=== PATIENT | female | born 1990 | race Caucasian/White ===

== ENCOUNTER 2020-08-31 14:40 | Outpatient (REF) | payer OTHER, SELFPAY ==
[2020-08-31 16:51] LABS: Hematocrit 36.4 % (37-47); Mean Corpuscular HGB Conc 30.2 g/dl (31.0-35.0); Mean Corpuscular Hemoglobin 24.1 pg (27.0-33.0); Mean Corpuscular Volume 79.6 fL (80-98); Mean Platelet Volume 11.5 fL (9.4-12.3); Platelet Count 245 X10*3/uL (160-400); Red Blood Count 4.57 X10*6/uL (4.20-5.50); Red Cell Distribution Width 17.7 % (11.0-16.0); White Blood Count 7.8 X10*3/uL (4.8-10.8)
[2020-08-31 16:55] LABS: Prothrombin Time 11.8 SEC (10.8-13.0)
[2020-08-31 17:11] LABS: Anion Gap 12 (12-20); Blood Urea Nitrogen 12 mg/dL (9-16); Calcium 8.8 mg/dL (8.4-10.2); Carbon Dioxide 24 mmol/L (22-29); Chloride 107 mmol/L (96-108); Cholesterol 195 mg/dL; Estimated Glomerular Filt Rate > 60; Glucose Fasting 83 mg/dL (60-99); HDL Cholesterol 58 mg/dL; LDL Cholesterol Calculated 119 mg/dl; Potassium 4.5 mmol/l (3.3-5.1); Sodium 138 mmol/L (135-145); Triglycerides 91 mg/dL
[2020-08-31 17:34] LABS: TSH reflex Free T4 1.41 mIU/mL (0.32-4.0); Vitamin D 25-OH Total 12.6 ng/mL (>30)
== END 2020-08-31 14:41 | disposition home or self-care (01) ==
LOC: HO.HMGCLDS 14:40
PROVIDERS: PCP Nurse Practitioner Family; Visit Provider Nurse Practitioner Family
DX: D64.9 Anemia, unspecified (principal); Z00.00 Encounter for general adult medical examination without abnormal findings; R58 Hemorrhage, not elsewhere classified
CPT/HCPCS: 36415; 80048; 80061; 82306; 84443; 85027; 85610

== ENCOUNTER 2020-09-01 14:47 | Outpatient (REF) | payer OTHER, SELFPAY ==
--- NOTE | 2020-09-01 14:52 | US_ITS ---
EXAMINATION: US THYROID CLINICAL INFORMATION: Disorder of thyroid, unspecified. COMPARISON: None TECHNIQUE: Linear transducer goetz-scale and color Doppler examination with attention to the region of the thyroid. FINDINGS: SIZE: Measurements of the thyroid lobes and nodules are given in sagittal, anteroposterior and transverse dimensions respectively. Right Thyroid Lobe: 5.1 x 2.1 x 1.5 cm, volume 8.4 mL. Parenchyma: The gland echotexture is homogeneous. Thyroid vascularity is normal. Left Thyroid Lobe: 5.1 x 1.4 x 1.7 cm, volume 6.2 mL. Parenchyma: The gland echotexture is homogeneous. Thyroid vascularity is normal. Isthmus: 0.2 cm in maximum AP dimension. RIGHT THYROID LOBE: No nodules. ISTHMUS: No nodules. LEFT THYROID LOBE: No nodules. NODES: No lymphadenopathy is seen in the tissue surrounding the thyroid gland. US/US thyroid IMPRESSION: Normal thyroid ultrasound.
== END 2020-09-01 14:48 | disposition home or self-care (01) ==
LOC: HO.HMGCX 14:47
PROVIDERS: PCP Nurse Practitioner Family; Visit Provider Nurse Practitioner Family
DX: E07.9 Disorder of thyroid, unspecified (principal)
CPT/HCPCS: 76536

== ENCOUNTER 2020-09-15 17:03 | Outpatient (REF) | payer OTHER, SELFPAY ==
--- NOTE | 2020-09-15 17:15 | US_ITS ---
EXAMINATION: DOPPLER VENOUS ULTRASOUND EXTREMITY, LEFT CLINICAL INFORMATION: Left lower extremity edema. COMPARISON: None. TECHNIQUE: Araiza-scale, Doppler and spectral analysis of the lower extremity was performed. FINDINGS: There is no evidence for a deep venous thrombosis within the visualized lower extremity veins. There is normal flow, compression and augmentation. ADDITIONAL FINDINGS: No Montes's cyst is identified. US/US venous duplex LE IMPRESSION: Unremarkable examination. Specifically, no evidence for DVT.
== END 2020-09-15 17:04 | disposition home or self-care (01) ==
LOC: HO.US 17:03
PROVIDERS: Visit Provider Hospitalist
DX: R60.0 Localized edema (principal)
CPT/HCPCS: 93971

== ENCOUNTER 2020-09-15 17:11 | Outpatient (REF) | payer OTHER, SELFPAY | END 2020-09-15 17:12 | disposition home or self-care (01) | LOC: HO.HMGCX 17:11 | PROVIDERS: PCP Nurse Practitioner Family; Visit Provider Nurse Practitioner Family | DX: Z13.89 Encounter for screening for other disorder (principal) ==

== ENCOUNTER 2020-10-04 10:52 | Outpatient (REF) | payer OTHER, SELFPAY ==
[2020-10-04 13:51] LABS: MANUAL DIFF FLAG NO
[2020-10-04 13:55] LABS: Basophils Absolute Auto 0.1 X10*3/uL (0.0-0.2); Basophils Percent Auto 0.8 % (0-2); Eosinophils Absolute Auto 0.1 X10*3/uL (0.0-0.4); Eosinophils Percent Auto 1.9 % (0-4); Hematocrit 35.8 % (37-47); Hemoglobin 10.6 g/dl (12.0-16.0); Imm Gran Abs Auto 0.02 X10*3/uL (0.00-0.03); Imm Gran Pct Auto 0.3 % (0.0-0.4); Lymphocytes Absolute Auto 2.2 X10*3/uL (1.2-4.9); Lymphocytes Percent Auto 34.8 % (20-40); Mean Corpuscular HGB Conc 29.6 g/dl (31.0-35.0); Mean Corpuscular Hemoglobin 23.7 pg (27.0-33.0); Mean Corpuscular Volume 79.9 fL (80-98); Mean Platelet Volume 11.5 fL (9.4-12.3); Monocytes Absolute Auto 0.5 X10*3/uL (0.1-1.2); Neutrophils Absolute Auto 3.5 X10*3/uL (2.0-8.3); Neutrophils Percent Auto 55.2 % (45-73); Platelet Count 250 X10*3/uL (160-400); Red Blood Count 4.48 X10*6/uL (4.20-5.50); Red Cell Distribution Width 17.3 % (11.0-16.0); White Blood Count 6.4 X10*3/uL (4.8-10.8)
[2020-10-04 14:18] LABS: Iron 50 mcg/dL (30-160); Percent Iron Saturation 11 % (15-50); Total Iron Binding Capacity 471 mcg/dL (228-428); Unsaturated Iron Binding 421 ug/dL
[2020-10-04 14:38] LABS: Ferritin 10 ng/mL (10-122)
[2020-10-06 20:08] LABS: TS Negative Control Passed; TS Panel A 0; TS Panel B 1; TS Positive Control Passed; TSpotTB Negative (SeeBelow)
== END 2020-10-04 10:53 | disposition home or self-care (01) ==
LOC: HO.HMGCLDS 10:52
PROVIDERS: PCP Nurse Practitioner Family; Visit Provider Nurse Practitioner Family
DX: D64.9 Anemia, unspecified (principal); Z11.1 Encounter for screening for respiratory tuberculosis
CPT/HCPCS: 36415; 82728; 83540; 85025; 86481

== ENCOUNTER 2021-12-25 08:58 | Outpatient (REF) | payer OTHER, SELFPAY ==
--- NOTE | ~2021-12-25 | MM_ITS ---
EXAMINATION: MM SCREENING DIGITAL BREAST TOMOSYNTHESIS, BILATERAL CLINICAL INFORMATION: Screening. Asymptomatic. Age 31. Imaging prior to anticipated bilateral breast surgery. Intentional weight loss over 100 pounds past 8 months. Family history breast cancer, maternal grandmother. The lifetime risk of breast cancer based on the Tyrer-Cuzick Model is 14%. COMPARISON: None (current study represents initial baseline exam). TECHNIQUE: Digital breast tomosynthesis is performed in both the craniocaudal and mediolateral oblique views along with computer-aided detection (CAD). Synthesized 2D images are generated from the tomosynthesis. FINDINGS: There are scattered areas of fibroglandular density (ACR BI-RADS breast composition Category b). There are no significant masses, abnormal calcifications, or other abnormalities. No architectural abnormality. The axilla and skin contours are unremarkable. MM/MM tomosynthesis screening BI IMPRESSION: No mammographic evidence of malignancy. ASSESSMENT: BI-RADS 1: Negative RECOMMENDATION: Routine annual mammography screening. This patient's information was entered into a reminder system with a target due date for their next mammogram.
== END 2021-12-25 08:59 | disposition home or self-care (01) ==
LOC: HO.MAMMO 08:58
PROVIDERS: PCP Nurse Practitioner Family; Visit Provider Nurse Practitioner Family
DX: Z12.31 Encounter for screening mammogram for malignant neoplasm of breast (principal)
CPT/HCPCS: 77063; 77067

== ENCOUNTER 2022-01-15 09:04 | Outpatient (REF) | payer OTHER, SELFPAY ==
[2022-01-15 11:33] LABS: MANUAL DIFF FLAG NO
[2022-01-15 11:37] LABS: Basophils Percent Auto 0.6 % (0-2); Eosinophils Absolute Auto 0.1 X10*3/uL (0.0-0.4); Eosinophils Percent Auto 1.5 % (0-4); Hematocrit 39.3 % (37.0-47.0); Hemoglobin 12.4 g/dl (12.0-16.0); Imm Gran Abs Auto 0.01 X10*3/uL (0.00-0.03); Imm Gran Pct Auto 0.2 % (0.0-0.4); Lymphocytes Absolute Auto 2.3 X10*3/uL (1.2-4.9); Lymphocytes Percent Auto 34.8 % (20-40); Mean Corpuscular HGB Conc 31.6 g/dl (31.0-35.0); Mean Corpuscular Hemoglobin 27.6 pg (27.0-33.0); Mean Corpuscular Volume 87.3 fL (80.0-98.0); Mean Platelet Volume 12.1 fL (9.4-12.3); Monocytes Absolute Auto 0.5 X10*3/uL (0.1-1.2); Neutrophils Absolute Auto 3.6 x10*3/uL (2.0-8.3); Neutrophils Percent Auto 54.9 % (45-73); Platelet Count 207 X10*3/uL (160-400); Red Cell Distribution Width 18.7 % (11.0-16.0); White Blood Count 6.5 X10*3/uL (4.8-10.8)
[2022-01-15 11:44] LABS: INTERNATIONAL NORM RATIO 1.1 (0.9-1.1); Prothrombin Time 12.1 SEC (9.9-13.0)
[2022-01-15 11:47] LABS: Partial Thromboplastin Time 31.8 SEC (24.1-38.0)
[2022-01-15 11:51] LABS: Appearance Urine CLEAR; Color Urine YELLOW; Glucose Urine UA NEG (NEG); Leukocyte Esterase Urine NEG (NEG); Nitrite Urine NEG (NEG); PH 5.5 (5.0-8.0); Specific Gravity - Urine >= 1.030 (1.005-1.025); Urine Blood NEG (NEG); Urine Ketones 15 MG/DL (NEG); Urine Protein NEG (NEG-TRACE)
[2022-01-15 12:09] LABS: TSH reflex Free T4 1.99 uIU/mL (0.32-4.0)
[2022-01-15 12:16] LABS: Alanine Aminotransferase 32 U/L (0-31); Albumin Level 4.2 g/dL (3.5-5.0); Alkaline Phosphatase 47 U/L (39-117); Anion Gap 13 (12-20); Aspartate Amino Transferase 22 U/L (5-31); Bilirubin Total 0.5 mg/dL (0.0-1.0); Blood Urea Nitrogen 14 mg/dL (9-16); Calcium 9.8 mg/dL (8.4-10.2); Carbon Dioxide 24 mmol/L (22-29); Chloride 108 mmol/L (96-108); Estimated Glomerular Filt Rate > 60; Glucose Fasting 80 mg/dL (60-99); Potassium 4.4 mmol/L (3.3-5.1); Sodium 141 mmol/L (135-145); Total Protein 6.5 g/dL (6.5-8.0)
== END 2022-01-15 09:05 | disposition home or self-care (01) ==
LOC: HO.HMGCLDS 09:04
PROVIDERS: PCP Nurse Practitioner Family; Visit Provider Nurse Practitioner Family
DX: Z01.818 Encounter for other preprocedural examination (principal)
CPT/HCPCS: 36415; 80053; 81003; 84443; 85025; 85610; 85730

== ENCOUNTER 2022-02-12 14:25 | Outpatient (REF) | payer OTHER, SELFPAY ==
[2022-02-12 16:50] LABS: MANUAL DIFF FLAG NO
[2022-02-12 16:55] LABS: Basophils Percent Auto 0.4 % (0-2); Eosinophils Absolute Auto 0.1 X10*3/uL (0.0-0.4); Hematocrit 39.1 % (37.0-47.0); Hemoglobin 12.6 g/dl (12.0-16.0); Imm Gran Abs Auto 0.02 X10*3/uL (0.00-0.03); Imm Gran Pct Auto 0.3 % (0.0-0.4); Lymphocytes Absolute Auto 2.5 X10*3/uL (1.2-4.9); Lymphocytes Percent Auto 35.8 % (20-40); Mean Corpuscular HGB Conc 32.2 g/dl (31.0-35.0); Mean Corpuscular Hemoglobin 28.4 pg (27.0-33.0); Mean Corpuscular Volume 88.3 fL (80.0-98.0); Mean Platelet Volume 11.8 fL (9.4-12.3); Monocytes Absolute Auto 0.5 X10*3/uL (0.1-1.2); Monocytes Percent Auto 7.4 % (2-11); Neutrophils Absolute Auto 3.8 x10*3/uL (2.0-8.3); Neutrophils Percent Auto 55.1 % (45-73); Platelet Count 242 X10*3/uL (160-400); Red Blood Count 4.43 X10*6/uL (4.20-5.50); Red Cell Distribution Width 17.5 % (11.0-16.0); White Blood Count 6.9 X10*3/uL (4.8-10.8)
[2022-02-12 16:56] LABS: Appearance Urine CLEAR; Color Urine YELLOW; Glucose Urine UA NEG (NEG); Leukocyte Esterase Urine NEG (NEG); Nitrite Urine NEG (NEG); Specific Gravity - Urine <= 1.005 (1.005-1.025); Urine Blood NEG (NEG); Urine Ketones 40 MG/DL (NEG); Urine Protein NEG (NEG-TRACE)
[2022-02-12 17:04] LABS: INTERNATIONAL NORM RATIO 1.1 (0.9-1.1); Prothrombin Time 12.2 SEC (9.9-13.0)
[2022-02-12 17:07] LABS: Partial Thromboplastin Time 34.2 SEC (24.1-38.0)
[2022-02-12 17:12] LABS: Alanine Aminotransferase 12 U/L (0-31); Albumin Level 4.3 g/dL (3.5-5.0); Alkaline Phosphatase 46 U/L (39-117); Anion Gap 16 (12-20); Aspartate Amino Transferase 17 U/L (5-31); Bilirubin Total 0.6 mg/dL (0.0-1.0); Blood Urea Nitrogen 11 mg/dL (9-16); Calcium 10.4 mg/dL (8.4-10.2); Carbon Dioxide 22 mmol/L (22-29); Chloride 103 mmol/L (96-108); Estimated Glomerular Filt Rate > 60; Glucose Random 70 mg/dL (60-115); Potassium 4.4 mmol/L (3.3-5.1); Sodium 137 mmol/L (135-145); Total Protein 6.8 g/dL (6.5-8.0)
[2022-02-12 17:17] LABS: Estimated Average Glucose 85 mg/dL; Hemoglobin A1c % 4.6 %
[2022-02-12 17:34] LABS: Free T4 (Free Thyroxine) 0.98 ng/dL (0.71-1.85); HCG Quantitative < 2 mIU/mL; TSH reflex Free T4 2.47 uIU/mL (0.32-4.0)
[2022-02-12 17:42] LABS: RBC Urine 0-2 /HPF (0); Squamous Epithelial Cell Urine TRACE /LPF; WBC Urine 0 /HPF (0-4)
[2022-02-13 05:41] LABS: Triiodothyronine T3 Free 2.3 pg/mL (2.3-4.2)
[2022-02-13 07:57] LABS: HIV AB/AG Nonreactive (Nonreactive); HIV Num 1 0.08 S/CO (0.00-0.99)
== END 2022-02-12 14:26 | disposition home or self-care (01) ==
LOC: HO.HMGCLDS 14:25
PROVIDERS: PCP Nurse Practitioner Family; Visit Provider Nurse Practitioner Family
DX: Z01.818 Encounter for other preprocedural examination (principal); Z11.4 Encounter for screening for human immunodeficiency virus [HIV]
CPT/HCPCS: 36415; 80053; 81001; 83036; 84439; 84443; 84481; 84702; 85025; 85610; 85730; 87389

== ENCOUNTER 2022-02-15 14:28 | Outpatient (REF) | payer OTHER, SELFPAY ==
--- NOTE | ~2022-02-15 | US_ITS ---
EXAMINATION: US ABDOMEN COMPLETE CLINICAL INFORMATION: Abdominal tenderness, unspecified site. COMPARISON: CT abdomen and pelvis 05/11/2015. TECHNIQUE: Real-time imaging of the abdominal viscera. FINDINGS: PANCREAS: Normal. ABDOMINAL AORTA: The proximal, mid, and distal segments are normal in caliber. INFERIOR VENA CAVA: Visualized portions are normal. LIVER: Normal. The liver is normal in size. The liver contour is normal. Parenchymal echogenicity is normal. No focal hepatic lesion. There is no intrahepatic biliary duct dilatation seen. GALLBLADDER: There is an echogenic bile. The gallbladder is physiologically distended without evidence of stones, polyps, wall thickening or pericholecystic fluid. COMMON BILE DUCT: Normal in caliber measuring 0.2 cm in diameter. RIGHT KIDNEY: Normal. No hydronephrosis. No renal calculi or focal parenchymal lesions. The kidney measures 8.4 cm in maximum dimension. LEFT KIDNEY: There are multiple echogenic foci with non-shadowing and non-twinkle artifact. No hydronephrosis. No renal calculi or focal parenchymal lesions. The kidney measures 9.8 cm in maximum dimension. SPLEEN: Normal. The spleen measures 7.3 cm in maximum dimension. FREE FLUID: None. US/US abdomen complete IMPRESSION: Multiple echogenic foci, -shadowing and non-twinkle artifact in left kidney. Echogenic bile but no wall thickening. The rest of the abdominal ultrasound is unremarkable.
== END 2022-02-15 14:29 | disposition home or self-care (01) ==
LOC: HO.US 14:28
PROVIDERS: PCP Nurse Practitioner Family; Visit Provider Nurse Practitioner Family
DX: R10.819 Abdominal tenderness, unspecified site (principal)
CPT/HCPCS: 76700

== ENCOUNTER 2022-02-20 11:00 | Outpatient (REF) | payer OTHER, SELFPAY | END 2022-02-20 11:01 | disposition home or self-care (01) | LOC: HO.MDS 11:00 | PROVIDERS: Visit Provider Internal Medicine Medical Oncology | DX: D50.9 Iron deficiency anemia, unspecified (principal) | CPT/HCPCS: 96365; J2916 ==

== ENCOUNTER 2022-02-25 12:59 | Outpatient (REF) | payer OTHER, SELFPAY | END 2022-02-25 13:00 | disposition home or self-care (01) | LOC: HO.MDS 12:59 | PROVIDERS: Visit Provider Internal Medicine Medical Oncology | DX: D50.9 Iron deficiency anemia, unspecified (principal); M79.7 Fibromyalgia | CPT/HCPCS: 96365; J2916 ==

== ENCOUNTER 2022-03-01 09:18 | Outpatient (REF) | payer OTHER, SELFPAY ==
[2022-03-01 10:18] LABS: MANUAL DIFF FLAG NO
[2022-03-01 10:22] LABS: Basophils Percent Auto 0.3 % (0-2); Hematocrit 35.2 % (37.0-47.0); Hemoglobin 11.6 g/dl (12.0-16.0); Lymphocytes Absolute Auto 1.2 X10*3/uL (1.2-4.9); Lymphocytes Percent Auto 40.9 % (20-40); Mean Corpuscular Hemoglobin 29.7 pg (27.0-33.0); Monocytes Absolute Auto 0.3 X10*3/uL (0.1-1.2); Monocytes Percent Auto 10.5 % (2-11); Neutrophils Absolute Auto 1.4 x10*3/uL (2.0-8.3); Neutrophils Percent Auto 47.3 % (45-73); Red Blood Count 3.91 X10*6/uL (4.20-5.50); Red Cell Distribution Width 17.3 % (11.0-16.0)
[2022-03-01 10:41] LABS: Mean Platelet Volume 11.7 fL (9.4-12.3); Platelet Count 104 X10*3/uL (160-400)
== END 2022-03-01 09:19 | disposition home or self-care (01) ==
LOC: HO.MDS 09:18
PROVIDERS: Visit Provider Internal Medicine Medical Oncology
DX: D50.9 Iron deficiency anemia, unspecified (principal)
CPT/HCPCS: 36415; 85025; 96365; J2916

== ENCOUNTER 2022-04-16 14:04 | Outpatient (RCR) | payer OTHER, SELFPAY | END 2022-06-10 14:08 | disposition home or self-care (01) | LOC: HO.WCC 14:04 | PROVIDERS: PCP Nurse Practitioner Family; Visit Provider Physician Assistant | DX: L98.492 Non-pressure chronic ulcer of skin of other sites with fat layer exposed (principal); S71.001D Unspecified open wound, right hip, subsequent encounter; S31.000D Unspecified open wound of lower back and pelvis without penetration into retroperitoneum, subsequent encounter; T81.31XD Disruption of external operation (surgical) wound, not elsewhere classified, subsequent encounter; M96.842 Postprocedural seroma of a musculoskeletal structure following a musculoskeletal system procedure | CPT/HCPCS: 11042; 97597; 99213; 99214 ==

== ENCOUNTER 2022-05-14 07:57 | Outpatient (REF) | payer OTHER, SELFPAY ==
--- NOTE | ~2022-05-14 | CT_ITS ---
EXAMINATION: CT ABDOMEN WITHOUT AND WITH CONTRAST CLINICAL INFORMATION: Abnormal ultrasound findings COMPARISON: Negative CT abdomen and pelvis 05/11/2015 TECHNIQUE: Contiguous axial thin section helical images of the abdomen were performed before and after the administration of oral contrast and 85 mL of Omnipaque 350 intravenous contrast. The data set was reformatted in the coronal and sagittal planes and reviewed on an independent workstation. This CT examination was performed using dose optimization techniques as appropriate, variously including the following: *Automated exposure control *Adjustment of mA and/or kV according to patient size (this includes techniques or standardized protocols for targeted exams where dose is matched to indication/reason for exam; i.e. extremities or head) *Use of iterative reconstruction technique DLP: 292 mGy-cm FINDINGS: LUNG BASES: The lung bases are clear. The heart size is normal. LIVER, GALLBLADDER, AND BILIARY TREE: The liver is normal size, shape and contour. No focal lesion or intrahepatic ductal dilatation seen. The gallbladder is unremarkable. PANCREAS: The pancreas is homogeneous in density and is normal size. The peripancreatic borders are preserved. SPLEEN: The spleen is unremarkable. ADRENAL GLANDS AND KIDNEYS: Both adrenal glands are symmetrically normal. Both kidneys are normal size, shape and contour. There are no radiopaque renal calculi or hydronephrosis seen. BOWEL LOOPS: There is scattered stool and gas seen throughout the colon without distention. The small bowel loops are normal caliber. Appendix is not visualized. ABDOMINAL WALL: There is diffuse abdominal wall cellulitis and focal fluid collection along the right posterior abdominal wall. LYMPH NODES: Normal. VASCULAR: Unremarkable. BONES: Unremarkable CT/CT abdomen wo/w con IMPRESSION: 1. Diffuse abdominal wall cellulitis and focal fluid collection along the right posterior abdominal wall just above the iliac crest 2. Otherwise no acute intra-abdominal process seen. There is mild constipation. Fleischner guidelines were followed.
[2022-05-14] MEDS: iohexoL 350 MG/ML 100 ML INFUS..BTL IV (09:22)
== END 2022-05-14 07:58 | disposition home or self-care (01) ==
LOC: HO.CT 07:57
PROVIDERS: PCP Nurse Practitioner Family; Visit Provider Nurse Practitioner Family
DX: R93.422 Abnormal radiologic findings on diagnostic imaging of left kidney (principal)
CPT/HCPCS: 74170; Q9967

== ENCOUNTER 2022-09-01 01:47 | Emergency (ER) | payer OTHER, SELFPAY ==
[2022-09-01 01:20] LABS: Appearance Urine Clear; Color Urine Yellow; Glucose Urine UA Negative (Negative); Leukocyte Esterase Urine Negative (Negative); Nitrite Urine Negative (Negative); Specific Gravity - Urine <= 1.005 (1.005-1.025); Urine Blood Negative (Negative); Urine Ketones Negative (Negative); Urine Protein Negative (Neg-Trace)
[2022-09-01 01:21] LABS: UPreg QC Valid YES; Urine Pregnancy NEGATIVE (NEGATIVE)
[2022-09-01 01:43] LABS: Amphetamine Screen Urine Not Detected (Not Detect); Barbiturates, Urine Not Detected (Not Detect); Benzodiazepines Screen Urine Not Detected (Not Detect); Cannabinoid Screen Urine Not Detected (Not Detect); Cocaine Screen Urine Not Detected (Not Detect); Fentanyl, urine Not Detected (Not Detect); Opiate Screen Urine Not Detected (Not Detect); Phencyclidine Screen Urine Not Detected (Not Detect)
--- NOTE | 2022-09-01 01:47 | ED_ITS ---
HPI - General Adult General Chief complaint: Nausea/Vomiting/Diarrhea Stated complaint: etoh Time Seen by Provider: 09/01/22 01:19 EST Source: patient and other Mode of arrival: EMS History of Present Illness HPI narrative: 32-year-old female who presents after having done on drinking with a friend of hers and states that she consumed far less than her typical amount and felt very lightheaded and became nauseous and vomited. Patient declined Zofran. Patient has recently recovered from RSV infection and had been undergoing water fasting for 2 days. Related Data Home Medications Medication Instructions Recorded Confirmed ascorbic acid (vitamin C) 500 mg 500 mg PO BID 02/12/22 04/22/22 chewable tablet (Vitamin C) ibuprofen 800 mg tablet 800 mg PO Q8H PRN pain 04/08/22 04/22/22 Previous Rx's Medication Instructions Recorded albuterol sulfate 90 mcg/actuation 2 puff inhalation Q6H PRN 10/15/21 aerosol inhaler bronchospasm 30 days #8.5 grams doxycycline hyclate 100 mg tablet 100 mg PO BID 10 days #20 tabs 04/08/22 tramadol 50 mg tablet 50 mg PO BID PRN pain 10 days #20 04/08/22 tabs fluconazole 150 mg tablet 150 mg PO Q3D 2 doses #2 tabs 04/22/22 (Diflucan) albuterol sulfate 90 mcg/actuation 2 puff inhalation QID PRN 08/01/22 aerosol inhaler (Ventolin HFA) shortness of breath or wheezing #8.5 grams prednisone 10 mg tablet 10 mg PO DAILY #16 tabs 08/06/22 Allergies Allergy/AdvReac Type Severity Reaction Status Date / Time latex Allergy rash Verified 09/01/22 01:57 EDT ondansetron [From Zofran] Allergy Nausea Verified 09/01/22 01:57 EDT Review of Systems Review of Systems: Pertinent positives and negatives as stated in HPI 10 point review of systems is otherwise negative. [facility] Past Medical History Source: nursing notes reviewed Medical History (Reviewed 09/01/22 @ 01:51 EST by Sachi Stoddard MD) Anemia Asthma DVT (deep vein thrombosis) in Family hx-breast malignancy Fibromyalgia Patella-femoral syndrome Family History Family History (Reviewed 09/01/22 @ 01:51 EST by Sachi Stoddard MD) Father No problems noted. Paternal Grandfather Diabetes Paternal Grandmother Diabetes Mother Asthma Paternal Aunt Breast cancer Social History Social History (Reviewed 09/01/22 @ 01:51 EST by Sachi Stoddard MD) Household Members: Children Housing: Condominium Are you a primary post anesthesia care unit nurse to a significant other at home: No Do you presently have visiting nurse or other home services: No Alcohol intake: current Patient Tobacco Use Status: Former Tobacco user Quit Date: 01/12/2022 Years Smoked: since 15 years old e-Cigarette/Vaping Use: Never Used Second Hand Smoke Exposure: No service: No Current occupational status: employed Current occupation: [employer] Current occupational exposures/hazards: No Cognitive needs: No Hearing needs: No Vision needs: No Physical Exam ED Vital Signs: Vital Signs - 24 hr 09/01/22 01:57 EDT Temperature 97.6 F Pulse Rate 59 Respiratory Rate 18 Blood Pressure 91/55 L Pulse Oximetry 97 Oxygen Delivery Method Room Air BMI result Body Mass Index 28.3 VITAL SIGNS: Reviewed. GENERAL: Well developed, well nourished, in no acute distress. HEAD: Normocephalic/atraumatic EYES: PERRLA, EOMI EARS: Ext canals without abnormality OROPHARYNX: no oral lesions noted, posterior pharynx clear LUNGS: Normal breath sounds. No adventitious sounds or accessory muscle use. SpO2<97> CARDIOVASCULAR: Regular rate and rhythm without noted murmurs ABDOMEN: Soft, non-tender, non-distended with bowel sounds. MUSCULOSKELETAL: No tenderness, deformities, or effusions noted on gross inspection. EXTREMITIES: No cyanosis, clubbing or edema. SKIN: Inspection of the skin reveals no rashes NEUROLOGIC: Alert and oriented x 4. Strength and sensation to light touch were grossly intact x 4. Course Course Course Narrative: 32-year-old female with history and clinical presentation consistent with alcohol intoxication, patient did request a urinary drug screen as she thought 1 of her drinks may have been ?spiked?. On review of urine drug screen there are no positive results. Patient has had an IV with IV fluids running and states she is feeling much better. Medical Decision Making Lab Data Labs: Lab Results 09/01/22 09/01/22 09/01/22 Range/Units 01:13 EST 01:13 EST 01:13 EST Urine Color Yellow Urine Appearance Clear Urine pH 6.0 (5.0-9.0) Ur Specific [place] <= 1.005 (1.005-1.025) Urine Protein Negative (Neg-Trace) mg/dL Urine Glucose (UA) Negative (Negative) mg/dL Urine Ketones Negative (Negative) mg/dL Urine Blood Negative (Negative) Urine Nitrite Negative (Negative) Ur Leukocyte Esterase Negative (Negative) Urine Test NEGATIVE (NEGATIVE) Urine Opiates Screen Not Detected (Not Detect) Urine Fentanyl Screen Not Detected (Not Detect) Ur Barbiturates Screen Not Detected (Not Detect) Ur Phencyclidine Scrn Not Detected (Not Detect) Ur Amphetamines Screen Not Detected (Not Detect) U Benzodiazepines Scrn Not Detected (Not Detect) Urine Cocaine Screen Not Detected (Not Detect) U Marijuana (THC) Screen Not Detected (Not Detect) Discharge Plan Discharge Clinical Impression: Alcohol intoxication Patient Disposition: Still a Patient Prescriptions: No Action albuterol sulfate 90 mcg/actuation HFA aerosol inhaler 2 puff inhalation Q6H PRN (Reason: bronchospasm) 30 Days Qty: 8.5 2RF albuterol sulfate [Ventolin HFA] 90 mcg/actuation HFA aerosol inhaler 2 puff inhalation QID PRN (Reason: shortness of breath or wheezing) Qty: 8.5 0RF ascorbic acid (vitamin C) [Vitamin C] 500 mg Tablet,Chewable 500 mg PO BID ibuprofen 800 mg tablet 800 mg PO Q8H PRN (Reason: pain) doxycycline hyclate 100 mg tablet 100 mg PO BID 10 Days Qty: 20 0RF tramadol 50 mg tablet 50 mg PO BID PRN (Reason: pain) 10 Days Qty: 20 0RF fluconazole [Diflucan] 150 mg tablet 150 mg PO Q3D Qty: 2 0RF prednisone 10 mg tablet 10 mg PO DAILY Qty: 16 0RF Rx Instructions: Take 4 tabs p.o. daily x 3 days, take 2 tab x 2 days
[2022-09-01 01:57] VITALS: BP 121/62; BP 91/55; PULSE 55; PULSE 59; RESP 18; TEMP 36.4; O2SAT 97; O2SAT 98; BMI 28.3
[2022-09-01 02:00] LABS: Glucose, Whole Blood 98 mg/dL (60-115)
--- OUTSIDE RECORDS SUMMARY | 2022-09-01 02:33 | XMS_ITS | Continuity of Care Document ---
:1990 Author Organization [facility] Address [address] [place] [address]- Care Team Providers Name Role Phone Ember CRUZ, Jesse Bryant Primary Care Physician [place] [facility] [place](s): 11/22/21 - 03/22/22 [facility] [address] [place], [place] [id number]- Attending Physician: Yo Rhodes MD Admitting Physician: Yo Rhodes MD Referring Physician: Jesse Pa NP Allergies, Adverse Reactions, Alerts Substance Reaction Severity Status Latex hives Active rash Mold1 Active Other Food Allergy garlic-tongue tingling Active Pineapple tongue tingling Active 1hives hypertension Immunizations Given and Recorded Vaccine Date Status Refusal Reason Varicella Virus Vaccine 12/18/16 Given Varicella Virus Vaccine 02/06/15 Recorded Measles/Mumps/Rubella Virus Vaccine 12/18/16 Given Measles/Mumps/Rubella Virus Vaccine 05/24/15 Recorded Measles/Mumps/Rubella Virus Vaccine 02/06/15 Recorded influenza virus vaccine, inactivated1 08/02/14 Given influenza virus vaccine, inactivated 12/23/13 Recorded influenza virus vaccine, inactivated2 07/04/12 Given tetanus/diphtheria/pertussis, acel(Tdap)3 07/13/14 Given tetanus/diphtheria/pertussis, acel(Tdap) 04/28/13 Recorde d tetanus/diphtheria/pertussis, acel(Tdap)4 07/03/12 Given Human Papillomavirus Vaccine 11/24/12 Given 1Result Comment: [08/02/2014] VIS given to pt-pt denies past reaction, egg allergy, hx GBS.2Admin Note: vis#05/21/20113Admin Note: tdap VIS given, administered in L [id number] Note: VIS sheet 11/19/2011 Medications albuterol 0.083% inhalation solution 3 mL = 2.5 mg, Inhalation, Every 6 hours, PRN for wheezing, # 25 each, 3 Refills, Maintenance, 11/15/16 17:48:08, Solution Start Date: 11/15/16 Status: Orderedalbuterol CFC free 90 mcg/inh inhalation aerosol 180 mcg, 2, puffs, Inhalation, 4 times a day, PRN, # 1 each, Refills 3, Tot. Refills 3, Maintenance,11/15/16 17:47:40, Inhaler, Route to Pharmacy Electronically, [id number], [facility]/pharmacy #[id number] Start Date: 11/15/16 Status: Ordereddiclofenac 1% topical gel 1 application, Topically, 4 times a day, # 100 Gm, 0 Refills, Maintenance, 10/08/21 12:58:00 EST, Gel, [facility]/pharmacy #[id number], Partial fill upon patient request if the prescription is for a schedule II opioid drug., 163.7, cm, 10/08/21 12:28:00 EST, Height Start Date: 10/08/21 Status: Orderedfluconazole 150 mg oral tablet 1 tablet = 150 mg, By Mouth, Once, Acute, # 1 tablet, 0 Refills, Soft Stop, 02/01/20 13:20:00 EDT, [facility]/pharmacy #1972, 163.7, cm, 07/08/19 17:07:00 EDT, Height, 113.6, kg, 06/18/18 11:50:00 EDT, Dry Weight Start Date: 02/01/20 Status: OrderedParagard IUD See Instructions, # 1 units, Maintenance, inserted in office 01/26/15, 01/26/15 13:04:28, Compound Start Date: 01/26/15 Status: OrderedPlan B One-Step 1.5 mg oral tablet 1.5 mg, 1, tablet, By Mouth, Once, # 1 tablet, Refills 0, Tot. Refills 0, Soft Stop, 07/19/20 14:02:00 EDT, Route to Pharmacy Electronically, [facility]/pharmacy #1972, 163.7, cm, 02/29/20 14:54:00 EDT, Height Start Date: 07/19/20 Status: Ordered Problem List Condition Effective Dates Status Health Status Informant Anemia(Confirmed) Active Anxiety(Confirmed) Active Asthma(Confirmed) Active Chronic female pelvic pain(Confirmed) Active Straining with stools(Confirmed) Active Abnormal bleeding in menstrual Active cycle(Confirmed) PFD (pelvic floor Active dysfunction)(Confirmed) Encounter for diagnostic colonoscopy Active due to change in bowel habits(Confirmed) Chronic generalized abdominal Active pain(Confirmed) IUD (intrauterine device) in Active place(Confirmed) Migraines(Confirmed) Active Psoriasis(Confirmed) Active Vaginitis(Confirmed) Active History of DVT right leg in Active 2013(Confirmed) Social History Social History Type Response Smoking Status Current some day smoker; Typ e: Cigarettes entered on: 02/16/18 Sex
--- OUTSIDE RECORDS SUMMARY | 2022-09-01 02:33 | XMS_ITS | Continuity of Care Document ---
:1990 [facility] Address [address] [place] [address] Care Team Providers Name Role Phone Frantz JOHNSON, Marin Owen Primary Care Physician [place] [facility] [place] 06/20/21 - 07/20/21 [facility] [employer] [address] [place] [id number] Allergies, Adverse Reactions, Alerts Substance Reaction Severity [...] Note: tdap VIS given, administered in L [id number] Note: VIS sheet 11/19/2011 Medications albuterol 0.083% [...] Maintenance,11/15/16 17:47:40, Inhaler, Route to Pharmacy Electronically, [id number], [facility]/pharmacy #[id number] Start Date: 11/15/16 Status: Orderedfluconazole 150 mg oral tablet 1 tablet = 150 mg, By Mouth, Once, Acute, # 1 tablet, 0 Refills, Soft Stop, 02/01/20 13:20:00 EDT, [facility]/pharmacy #1972, 163.7, cm, 07/08/19 17:07:00 [...] 07/19/20 14:02:00 EDT, Route to Pharmacy Electronically, [facility]/pharmacy #1972, 163.7, cm, 02/29/20 14:54:00 [...] History of DVT right leg in Active 2014(Confirmed) Social History Social History Type Response Smoking Status Current some day smoker; Typ e: Cigarettes entered on: 02/16/18 Sex
--- OUTSIDE RECORDS SUMMARY | 2022-09-01 02:33 | XMS_ITS | Continuity of Care Document ---
:1990 Author Organization [facility] Address [address] [place] [address], [address] [place] [id number] Care Team Providers Name Role Phone Marin Landry MD Primary Care Physician Encounter [facility] [place] Date(s): 02/29/20 - 03/30/20 [facility] [employer] [employer] [address] [address] [facility] Attending Physician: Dorys Cardoza Admitting Physician: Dorys Cardoza Referring Physician: AdmtrDorys Allergies, Adverse Reactions, Alerts Substance Reaction Severity [...] Note: tdap VIS given, administered in L [id number] Note: VIS sheet 11/19/2011 Medications albuterol 0.083% [...] Maintenance,11/15/16 17:47:40, Inhaler, Route to Pharmacy Electronically, [id number], [facility]/pharmacy #[id number] Start Date: 11/15/16 Status: Orderedfluconazole 150 mg oral tablet 1 tablet = 150 mg, By Mouth, Once, Acute, # 1 tablet, 0 Refills, Soft Stop, 02/01/20 13:20:00 EDT, [facility]/pharmacy #1972, 163.7, cm, 07/08/19 17:07:00 EDT, Height, 113.6, kg, 06/18/18 11:50:00 EDT, Dry Weight Start Date: 02/01/20 Status: OrderedParagard IUD See Instructions, # 1 units, Maintenance, inserted in office 01/26/15, 01/26/15 13:04:28, Compound Start Date: 01/26/15 Status: Ordered Problem List Condition Effective Dates [...]
--- OUTSIDE RECORDS SUMMARY | 2022-09-01 02:33 | XMS_ITS | Continuity of Care Document ---
:1990 Author Organization [facility] Address [address] [place] [address]- Care Team Providers Name Role Phone Ember CRUZ, Jesse Bryant Primary Care Physician [place] [facility] [place]s): 04/05/22 - 05/05/22 [facility] [address] [place], [place] [address] Attending Physician: Dorys Cardoza Admitting Physician: AdmDorys calderón Referring Physician: Admtr ArMalgorzata Allergies, Adverse Reactions, Alerts Substance Reaction Severity [...] Note: tdap VIS given, administered in L [id number] Note: VIS sheet 11/19/2011 Medications albuterol 0.083% [...] Maintenance,11/15/16 17:47:40, Inhaler, Route to Pharmacy Electronically, [id number], [facility]/pharmacy #[id number] Start Date: 11/15/16 Status: Orderedbacitracin zinc 500 units/g topical ointment 1 application, Topically, 2 times a day, # 15 Gm, 0 Refills, Maintenance, 04/05/22 9:42:00 EDT, Ointment, [facility]/pharmacy #1972, Partial fill upon patient request if the prescription is for a schedule II opioid drug., 1 application Topically 2 times a da... Start Date: 04/05/22 Status: Ordereddiclofenac 1% topical gel 1 application, Topically, 4 times a day, # 100 Gm, 0 Refills, Maintenance, 10/08/21 12:58:00 EST, Gel, [facility]pharmacy #1972, Partial fill upon patient request if the prescription is for a schedule II opioid drug., 163.7, cm, 10/08/21 12:28:00 EST, Height Start Date: 10/08/21 Status: Ordereddoxycycline hyclate 100 mg oral capsule 1 capsule = 100 mg, By Mouth, 2 times a day, # 20 capsule, 0 Refills, Maintenance, 04/05/22 9:42:00 EDT, Capsule, [facility]pharmacy [facility]1972, Partial fill upon patient request if the prescription is for a schedule II opioid drug., 163.7, cm, 04/05/22 9:15:00... Start Date: 04/05/22 Status: Orderedfluconazole 150 mg oral tablet 1 tablet = 150 mg, By Mouth, Once, Acute, # 1 tablet, 0 Refills, Soft Stop, 02/01/20 13:20:00 EDT, [facility]/pharmacy #1972, 163.7, cm, 07/08/19 17:07:00 EDT, Height, [...] 07/19/20 14:02:00 EDT, Route to Pharmacy Electronically, [facility]/pharmacy #1972, 163.7, cm, 02/29/20 14:54:00 EDT, Height [...]
--- OUTSIDE RECORDS SUMMARY | 2022-09-01 02:33 | XMS_ITS | Continuity of Care Document ---
:1990 Author Organization [facility] Address [address] [place] [address]- Care Team Providers Name Role Phone Frantz JOHNSON, Marin Owen Primary Care Physician [place] [facility] [place] - 09/16/21 [facility] [address] [place], [place] [address] Attending Physician: Dorys Cardoza Admitting Physician: AdmtrDorys Referring Physician: Admtr, Ar8 Allergies, Adverse Reactions, Alerts Substance Reaction Severity Status Latex hives Active rash Pineapple tongue tingling Active Mold1 Active Other Food Allergy garlic-tongue tingling Active 1hives hypertension Immunizations Given and [...] Note: tdap VIS given, administered in L [id number] Note: VIS sheet 11/19/2011 Medications albuterol 0.083% [...] Maintenance,11/15/16 17:47:40, Inhaler, Route to Pharmacy Electronically, [id number], [facility]/pharmacy #[id number] Start Date: 11/15/16 Status: Orderedfluconazole 150 mg oral tablet 1 tablet = 150 mg, By Mouth, Once, Acute, # 1 tablet, 0 Refills, Soft Stop, 02/01/20 13:20:00 EDT, [facility]/pharmacy #1972, 163.7, cm, 07/08/19 17:07:00 EDT, [...] 07/19/20 14:02:00 EDT, Route to Pharmacy Electronically, [facility]/pharmacy #1972, 163.7, cm, 02/29/20 14:54:00 EDT, [...]
--- OUTSIDE RECORDS SUMMARY | 2022-09-01 02:34 | XMS_ITS | Continuity of Care Document ---
:1990 Author Organization [facility] Address [address] [place] [address]- Care Team Providers Name Role Phone Ember CRUZ, Jesse Bryant Primary Care Physician Encounter [facility] Date(s): 04/01/22 - 06/07/[address] [address] Attending Physician: Stephen JOHNSON, Chun Campos Allergies, Adverse Reactions, Alerts Substance Reaction Severity [...] Note: tdap VIS given, administered in L [id number] Note: VIS sheet 11/19/2011 Medications albuterol 0.083% [...] Maintenance,11/15/16 17:47:40, Inhaler, Route to Pharmacy Electronically, [id number], [facility]/pharmacy #[id number] Start Date: 11/15/16 Status: Orderedbacitracin zinc 500 units/g topical ointment 1 application, Topically, 2 times a day, # 15 Gm, 0 Refills, Maintenance, 04/05/22 9:42:00 EDT, Ointment, [facility]/pharmacy #1972, Partial fill upon patient request if the prescription is for a schedule II opioid drug., 1 application Topically 2 times a da... Start Date: 04/05/22 Status: Ordereddiclofenac 1% topical gel 1 application, Topically, 4 times a day, # 100 Gm, 0 Refills, Maintenance, 10/08/21 12:58:00 EST, Gel, [facility]/pharmacy #1972, Partial fill upon patient request [...] 0 Refills, Soft Stop, 02/01/20 13:20:00 EDT, [facility]/pharmacy #1972, 163.7, cm, 07/08/19 17:07:00 EDT, [...] 07/19/20 14:02:00 EDT, Route to Pharmacy Electronically, [facility]/pharmacy #1972, 163.7, cm, 02/29/20 14:54:00 EDT, [...]
--- OUTSIDE RECORDS SUMMARY | 2022-09-01 02:34 | XMS_ITS | Continuity of Care Document ---
:1990 Author Organization [facility] Address [address] [place] [address]- Care Team Providers Name Role Phone Ember CRUZ, Jesse Bryant Primary Care Physician Encounter [facility] Date(s): 03/02/22 - 04/01/22 [facility] [address] [place], [place] [address] [[email or web address] Attending Physician: Dorys Cardoza Admitting Physician: AdmDorys [...] Note: tdap VIS given, administered in L [id number] Note: VIS sheet 11/19/2011 Medications albuterol 0.083% [...] Maintenance,11/15/16 17:47:40, Inhaler, Route to Pharmacy Electronically, [id number], [facility]/pharmacy #[id number] Start Date: 11/15/16 Status: Ordereddiclofenac 1% topical gel 1 application, Topically, 4 times a day, # 100 Gm, 0 Refills, Maintenance, 10/08/21 12:58:00 EST, Gel, [facility]/pharmacy #1972, Partial fill upon patient request if the prescription is for a schedule II opioid drug., 163.7, cm, 10/08/21 12:28:00 EST, Height Start Date: 10/08/21 Status: Orderedfluconazole 150 mg oral tablet 1 tablet = 150 mg, By Mouth, Once, Acute, # 1 tablet, 0 Refills, Soft Stop, 02/01/20 13:20:00 EDT, [facility]/pharmacy #1972, 163.7, cm, 07/08/19 17:07:00 EDT, [...] 07/19/20 14:02:00 EDT, Route to Pharmacy Electronically, [facility]/pharmacy #1972, 163.7, cm, 02/29/20 14:54:00 EDT, [...]
--- OUTSIDE RECORDS SUMMARY | 2022-09-01 02:34 | XMS_ITS | Continuity of Care Document ---
:1990 Author Organization [facility] [employer] [facility] Address [address] [place] [address]- Care Team Providers Name Role Phone rFantz JOHNSON, Marin Owen Primary Care Physician Encounter [facility] Date(s): 02/29/20 - 03/07/20 [facility] [employer] [address] [place] [address] [facility] Attending Physician: Brown JOHNSON, Kyara Galeano Allergies, Adverse Reactions, Alerts Substance Reaction Severity [...] Note: tdap VIS given, administered in L [id number] Note: VIS sheet 11/19/2011 Medications albuterol 0.083% [...] Maintenance,11/15/16 17:47:40, Inhaler, Route to Pharmacy Electronically, [id number], [facility]/pharmacy #[id number] Start Date: 11/15/16 Status: Orderedfluconazole 150 mg oral tablet 1 tablet = 150 mg, By Mouth, Once, Acute, # 1 tablet, 0 Refills, Soft Stop, 02/01/20 13:20:00 EDT, [facility]/pharmacy #1972, 163.7, cm, 07/08/19 17:07:00 EDT, Height, [...] of DVT right leg in Active 2013(Confirmed) Vital Signs Most recent to oldest [Reference Range]: 1 Height 163.7 cm (02/29/20 2:54 PM) Weight 99.5 kg (02/29/20 2:54 PM) Body Mass Index [18.5-24.99] 37.13 *>HHI* (02/29/20 2:54 PM) Blood Pressure [90-138/55-84 mm Hg] 100/70 mm Hg (02/29/20 2:54 PM) Blood pressure sites Arm, right (02/29/20 2:54 PM) Weight Obtained Via Standing scale (02/29/20 2:54 PM) Social History Social History Type Response Smoking Status Current some day smoker; Typ e: Cigarettes entered on: 02/16/18 Sex
--- OUTSIDE RECORDS SUMMARY | 2022-09-01 02:34 | XMS_ITS | Continuity of Care Document ---
:1990 Author Organization [facility] Address [address] [place] [address]- Care Team Providers Name Role Phone Marin Landry MD Primary Care Physician Encounter [facility] Date(s): 10/08/21 - 10/15/21 [facility] [address] [place], [place] [address] Attending Physician: Malcom Camara DO Referring Physician: Marin Landry MD Allergies, Adverse Reactions, Alerts Substance Reaction Severity [...] Note: tdap VIS given, administered in L [id number] Note: VIS sheet 11/19/2011 Medications albuterol 0.083% [...] Maintenance,11/15/16 17:47:40, Inhaler, Route to Pharmacy Electronically, [id number], [facility]/pharmacy #[id number] Start Date: 11/15/16 Status: Ordereddiclofenac 1% topical gel 1 application, Topically, 4 times a day, # 100 Gm, 0 Refills, Maintenance, 10/08/21 12:58:00 EST, Gel, [facility]/pharmacy #1972, Partial fill upon patient request if the prescription is for a schedule II opioid drug., 163.7, cm, 10/08/21 12:28:00 EST, Height Start Date: 10/08/21 Status: Orderedfluconazole 150 mg oral tablet 1 tablet = 150 mg, By Mouth, Once, Acute, # 1 tablet, 0 Refills, Soft Stop, 02/01/20 13:20:00 EDT, [facility]/pharmacy #1972, 163.7, cm, 07/08/19 17:07:00 EDT, [...] 07/19/20 14:02:00 EDT, Route to Pharmacy Electronically, [facility]/pharmacy #1972, 163.7, cm, 02/29/20 14:54:00 EDT, Height Start Date: 9/23/20 Status: Ordered Problem List Condition Effective Dates [...] oldest [Reference Range]: 1 Height 163.7 cm (10/08/21 12:28 PM) Oxygen Saturation [94-100 %] 100 % (10/08/21 12:28 PM) Pulse Rate [55-90 bpm] 54 bpm *L* (10/08/21 12:28 PM) Blood Pressure [90-138/55-84 mm Hg] 101/60 mm Hg (10/08/21 12:28 PM) Respiratory Rate [16-30 br/min] 20 br/min (10/08/21 12:28 PM) Temperature [96.8-100.4 DegF] 98.4 DegF (10/08/21 12:28 PM) Mode of Delivery (Oxygen) Room air (10/08/21 12:28 PM) Blood pressure sites Arm, right (10/08/21 12:28 PM) Temperature Route Temporal (10/08/21 12:28 PM) Social History Social History Type Response Smoking Status Current some day smoker; Typ e: Cigarettes entered on: 02/16/18 Sex
--- OUTSIDE RECORDS SUMMARY | 2022-09-01 02:34 | XMS_ITS | Continuity of Care Document ---
:1990 Author Organization [facility] Address [address] [place] [address]- Care Team Providers Name Role Phone Ember CRUZ, Jesse Bryant Primary Care Physician Encounter [facility] Date(s): 03/02/22 - 03/09/22 [facility] [address] [place], [place] [address] Attending Physician: Malcom Camara DO Referring Physician: Jesse Pa NP Allergies, Adverse [...] Note: tdap VIS given, administered in L [id number] Note: VIS sheet 11/19/2011 Medications albuterol 0.083% [...] Maintenance,11/15/16 17:47:40, Inhaler, Route to Pharmacy Electronically, [id number], [facility]/pharmacy #[id number] Start Date: 11/15/16 Status: Ordereddiclofenac 1% topical gel 1 application, Topically, 4 times a day, # 100 Gm, 0 Refills, Maintenance, 10/08/21 12:58:00 EST, Gel, [facility]/pharmacy #1972, Partial fill upon patient request if the prescription is for a schedule II opioid drug., 163.7, cm, 10/08/21 12:28:00 EST, Height Start Date: 10/08/21 Status: Orderedfluconazole 150 mg oral tablet 1 tablet = 150 mg, By Mouth, Once, Acute, # 1 tablet, 0 Refills, Soft Stop, 02/01/20 13:20:00 EDT, [facility]/pharmacy #1972, 163.7, cm, 07/08/19 17:07:00 EDT, [...] 07/19/20 14:02:00 EDT, Route to Pharmacy Electronically, [facility]/pharmacy #1972, 163.7, cm, 02/29/20 14:54:00 EDT, [...] oldest [Reference Range]: 1 Height 163.7 cm (03/02/22 8:40 AM) Oxygen Saturation [94-100 %] 100 % (03/02/22 8:40 AM) Pulse Rate [55-90 bpm] 49 bpm *L* (03/02/22 8:40 AM) Blood Pressure [90-138/55-84 mm Hg] 94/51 mm Hg (03/02/22 8:40 AM) Respiratory Rate [16-30 br/min] 20 br/min (03/02/22 8:40 AM) Temperature [96.8-100.4 DegF] 97.5 DegF (03/02/22 8:40 AM) Mode of Delivery (Oxygen) Room air (03/02/22 8:40 AM) Blood pressure sites Arm, left (03/02/22 8:40 AM) Social History Social History Type Response Smoking Status Current some day smoker; Typ e: Cigarettes entered on: 02/16/18 Sex
--- OUTSIDE RECORDS SUMMARY | 2022-09-01 02:34 | XMS_ITS | Continuity of Care Document ---
:1990 Author Organization [facility] Address [address] [place] [address]- Care Team Providers Name Role Phone Ember CRUZ, Jesse Bryant Primary Care Physician Encounter [facility] Date(s): 02/20/22 - 03/22/22 [facility] [address] [place] [address]- Attending Physician: Dorys Cardoza Admitting Physician: Dorys Cardoza Referring Physician: Dorys Cardoza Allergies, Adverse Reactions, Alerts Substance Reaction Severity [...] Note: tdap VIS given, administered in L [id number] Note: VIS sheet 11/19/2011 Medications albuterol 0.083% [...] Maintenance,11/15/16 17:47:40, Inhaler, Route to Pharmacy Electronically, [id number], [facility]/pharmacy #[id number] Start Date: 11/15/16 Status: Ordereddiclofenac 1% topical gel 1 application, Topically, 4 times a day, # 100 Gm, 0 Refills, Maintenance, 10/08/21 12:58:00 EST, Gel, [facility]/pharmacy #1972, Partial fill upon patient request if the prescription is for a schedule II opioid drug., 163.7, cm, 10/08/21 12:28:00 EST, Height Start Date: 10/08/21 Status: Orderedfluconazole 150 mg oral tablet 1 tablet = 150 mg, By Mouth, Once, Acute, # 1 tablet, 0 Refills, Soft Stop, 02/01/20 13:20:00 EDT, [facility]/pharmacy #1972, 163.7, cm, 07/08/19 17:07:00 EDT, Height, [...] 07/19/20 14:02:00 EDT, Route to Pharmacy Electronically, [facility]/pharmacy #1972, 163.7, cm, 02/29/20 14:54:00 EDT, Height [...]
--- OUTSIDE RECORDS SUMMARY | 2022-09-01 02:34 | XMS_ITS | Continuity of Care Document ---
:1990 Author Organization [facility] Address [address] [place] [address]- Care Team Providers Name Role Phone Frantz JOHNSON, Marin Owen Primary Care Physician Encounter [facility] [place] [place] Date(s): 08/17/21 - 08/24/21 [facility] [address] [place] [address]- Encounter Diagnosis Right leg pain (Discharge Diagnosis) - 08/17/21 Attending Physician: Terrie Tejeda MD Referring Physician: Marin Landry MD Allergies, Adverse [...] Note: tdap VIS given, administered in L [id number] Note: VIS sheet 11/19/2011 Medications albuterol 0.083% [...] Maintenance,11/15/16 17:47:40, Inhaler, Route to Pharmacy Electronically, [id number], [facility]/pharmacy #[id number] Start Date: 11/15/16 Status: Orderedfluconazole 150 mg oral tablet 1 tablet = 150 mg, By Mouth, Once, Acute, # 1 tablet, 0 Refills, Soft Stop, 02/01/20 13:20:00 EDT, [facility]/pharmacy #1972, 163.7, cm, 07/08/19 17:07:00 [...] 07/19/20 14:02:00 EDT, Route to Pharmacy Electronically, [facility]/pharmacy #1972, 163.7, cm, 02/29/20 14:54:00 [...] of DVT right leg in Active 2014(Confirmed) Diagnosis Diagnosis Type Effective Dates Health Status Clinical In formant Service Right leg pain Discharge 08/17/21 Diagnosis Vital Signs Most recent to oldest [Reference Range]: 1 Height 163.7 cm (08/17/21 9:17 AM) Oxygen Saturation [94-100 %] 100 % (08/17/21 9:17 AM) Pulse Rate [55-90 bpm] 63 bpm (08/17/21 9:17 AM) Blood Pressure [90-138/55-84 mm Hg] 102/44 mm Hg (08/17/21 9:17 AM) Respiratory Rate [16-30 br/min] 20 br/min (08/17/21 9:17 AM) Temperature [96.8-100.4 DegF] 97.6 DegF (08/17/21 9:17 AM) Mode of Delivery (Oxygen) Room air (08/17/21 9:17 AM) Blood pressure sites Arm, left (08/17/21 9:17 AM) Temperature Route Temporal (08/17/21 9:17 AM) Social History Social History Type Response Smoking Status Current some day smoker; Typ e: Cigarettes entered on: 02/16/18 Sex
--- OUTSIDE RECORDS SUMMARY | 2022-09-01 02:34 | XMS_ITS | Continuity of Care Document ---
:1990 Author Organization [facility] Address [address] [place] [address]- Care Team Providers Name Role Phone Ember CRUZ, Jesse Bryant Primary Care Physician Encounter [facility] [place] [facility] Date(s): 10/08/21 - 11/07/21 [facility] [address] [place], [place] [address] Attending Physician: Dorys Cardoza Admitting Physician: AdmDorys calderón Referring Physician: AdmtrDorys Allergies, Adverse Reactions, Alerts Substance Reaction Severity Status Latex hives Active rash Pineapple tongue tingling Active Other Food Allergy garlic-tongue tingling Active Mold1 Active 1hives hypertension Immunizations Given and Recorded [...] Note: tdap VIS given, administered in L [id number] Note: VIS sheet 11/19/2011 Medications albuterol 0.083% [...] Maintenance,11/15/16 17:47:40, Inhaler, Route to Pharmacy Electronically, [id number], [facility]/pharmacy #[id number] Start Date: 11/15/16 Status: Ordereddiclofenac 1% topical gel 1 application, Topically, 4 times a day, # 100 Gm, 0 Refills, Maintenance, 10/08/21 12:58:00 EST, Gel, [facility]/pharmacy #1972, Partial fill upon patient request if the prescription is for a schedule II opioid drug., 163.7, cm, 10/08/21 12:28:00 EST, Height Start Date: 10/08/21 Status: Orderedfluconazole 150 mg oral tablet 1 tablet = 150 mg, By Mouth, Once, Acute, # 1 tablet, 0 Refills, Soft Stop, 02/01/20 13:20:00 EDT, [facility]/pharmacy #1972, 163.7, cm, 07/08/19 17:07:00 EDT, Height, [...] 07/19/20 14:02:00 EDT, Route to Pharmacy Electronically, [facility]/pharmacy #1972, 163.7, cm, 02/29/20 14:54:00 EDT, [...]
--- OUTSIDE RECORDS SUMMARY | 2022-09-01 02:34 | XMS_ITS | Continuity of Care Document ---
:1990 Author Organization [facility] Address [address] [place] [address]- Care Team Providers Name Role Phone Ember CRUZ, Jesse Bryant Primary Care Physician Encounter [facility] [id number] Date(s): 11/05/21 - 12/06/21 [facility] [address] [place] [address]- Attending Physician: Yo Rhodes MD Admitting Physician: Yo Rhodes MD Referring Physician: Not on Staff, Referring MD Allergies, Adverse Reactions, Alerts Substance Reaction [...] Note: tdap VIS given, administered in L [id number] Note: VIS sheet 11/19/2011 Medications albuterol 0.083% [...] Maintenance,11/15/16 17:47:40, Inhaler, Route to Pharmacy Electronically, [id number], [facility]/pharmacy #[id number] Start Date: 11/15/16 Status: Ordereddiclofenac 1% topical gel 1 application, Topically, 4 times a day, # 100 Gm, 0 Refills, Maintenance, 10/08/21 12:58:00 EST, Gel, [facility]/pharmacy #1972, Partial fill upon patient request if the prescription is for a schedule II opioid drug., 163.7, cm, 10/08/21 12:28:00 EST, Height Start Date: 10/08/21 Status: Orderedfluconazole 150 mg oral tablet 1 tablet = 150 mg, By Mouth, Once, Acute, # 1 tablet, 0 Refills, Soft Stop, 02/01/20 13:20:00 EDT, [facility]/pharmacy #1972, 163.7, cm, 07/08/19 17:07:00 EDT, Height, [...] EDT, Route to Pharmacy Electronically, [facility]/pharmacy #1972, 163.7, cm, 02/29/20 14:54:00 EDT, Height [...]
--- OUTSIDE RECORDS SUMMARY | 2022-09-01 02:34 | XMS_ITS | Continuity of Care Document ---
:1990 Author Organization [facility] Address [address] [place] [address]- Care Team Providers Name Role Phone Ember CRUZ, Jesse Bryant Primary Care Physician Encounter [facility] [place] Date(s): 04/05/22 - 04/12/22 [facility] [address] [place], [place] [address] Attending Physician: Jo Ann Hong Allergies, Adverse Reactions, Alerts Substance Reaction Severity Status Latex hives Active rash Mold1 Active Pineapple tongue tingling Active Other Food Allergy [...] Note: tdap VIS given, administered in L [id number] Note: VIS sheet 11/19/2011 Medications albuterol 0.083% [...] Maintenance,11/15/16 17:47:40, Inhaler, Route to Pharmacy Electronically, [id number], [facility]/pharmacy #[id number] Start Date: 11/15/16 Status: Orderedbacitracin zinc 500 units/g topical ointment 1 application, Topically, 2 times a day, # 15 Gm, 0 Refills, Maintenance, 04/05/22 9:42:00 EDT, Ointment, [facility]/pharmacy #1972, Partial fill upon patient request if the prescription is for a schedule II opioid drug., 1 application Topically 2 times a da... Start Date: 04/05/22 Status: Ordereddiclofenac 1% topical gel 1 application, Topically, 4 times a day, # 100 Gm, 0 Refills, Maintenance, 10/08/21 12:58:00 EST, Gel, [facility]/pharmacy #1972, Partial fill upon patient request if [...] 0 Refills, Soft Stop, 02/01/20 13:20:00 EDT, [facility]/pharmacy #1972, 163.7, cm, 07/08/19 17:07:00 EDT, Height, [...] 07/19/20 14:02:00 EDT, Route to Pharmacy Electronically, [facility]/pharmacy #1972, 163.7, cm, 02/29/20 14:54:00 EDT, Height [...] oldest [Reference Range]: 1 Height 163.7 cm (04/05/22 9:15 AM) Oxygen Saturation [94-100 %] 100 % (04/05/22 9:15 AM) Pulse Rate [55-90 bpm] 83 bpm (04/05/22 9:15 AM) Blood Pressure [90-138/55-84 mm Hg] 97/66 mm Hg (04/05/22 9:15 AM) Respiratory Rate [16-30 br/min] 18 br/min (04/05/22 9:15 AM) Temperature [96.8-100.4 DegF] 98.4 DegF (04/05/22 9:15 AM) Mode of Delivery (Oxygen) Room air (04/05/22 9:15 AM) Blood pressure sites Arm, left (04/05/22 9:15 AM) Temperature Route Temporal (04/05/22 9:15 AM) Social History Social History Type Response Smoking Status Current some day smoker; Typ e: Cigarettes entered on: 02/16/18 Sex
--- OUTSIDE RECORDS SUMMARY | 2022-09-01 02:34 | XMS_ITS | Continuity of Care Document ---
:1989 Author Organization [facility] [employer] [facility] Address [address] [place] [address]- Care Team Providers Name Role Phone Marin Landry MD Primary Care Physician Encounter [facility] Date(s): 05/25/20 - 06/24/20 [facility] Glennie [facility] [address] [address]- [facility] Allergies, Adverse Reactions, Alerts Substance Reaction Severity [...] Note: tdap VIS given, administered in L [id number] Note: VIS sheet 11/19/2011 Medications albuterol 0.083% [...] Maintenance,11/15/16 17:47:40, Inhaler, Route to Pharmacy Electronically, [id number], [facility]/pharmacy #[id number] Start Date: 11/15/16 Status: Orderedfluconazole 150 mg oral tablet 1 tablet = 150 mg, By Mouth, Once, Acute, # 1 tablet, 0 Refills, Soft Stop, 02/01/20 13:20:00 EDT, [facility]/pharmacy #1972, 163.7, cm, 07/08/19 17:07:00 EDT, Height, 113.6, kg, 06/18/18 11:50:00 EDT, Dry Weight Start Date: 02/01/20 Status: OrderedParagard IUD See Instructions, # 1 units, Maintenance, inserted in office 01/26/15, 01/26/15 13:04:28, Compound Start Date: 01/26/15 Status: OrderedPlan B One-Step 1.5 mg oral tablet 1.5 mg, 1, tablet, By Mouth, Once, # 1 tablet, Refills 0, Tot. Refills 0, Soft Stop, 05/25/20 13:19:00 EDT, Route to Pharmacy Electronically, [facility]/pharmacy #1972, 163.7, cm, 02/29/20 14:54:00 EDT, Height, 113.6, kg, 06/18/18 11:50:00 EDT, Dry Weight Start Date: 05/25/20 Status: Ordered Problem List Condition Effective Dates [...]
--- OUTSIDE RECORDS SUMMARY | 2022-09-01 02:34 | XMS_ITS | Continuity of Care Document ---
:1990 Author Organization [facility] Address [address] [place] [address]- Care Team Providers Name Role Phone Marin Landry MD Primary Care Physician Encounter [facility] Date(s): 07/19/20 - 08/18/20 [facility] Murray valuklikNiurkas [address] [address]- [facility] Allergies, Adverse Reactions, Alerts Substance Reaction Severity [...] Note: tdap VIS given, administered in L [id number] Note: VIS sheet 11/19/2011 Medications albuterol 0.083% [...] Maintenance,11/15/16 17:47:40, Inhaler, Route to Pharmacy Electronically, [id number], [facility]/pharmacy #[id number] Start Date: 11/15/16 Status: Orderedfluconazole 150 mg oral tablet 1 tablet = 150 mg, By Mouth, Once, Acute, # 1 tablet, 0 Refills, Soft Stop, 02/01/20 13:20:00 EDT, [facility]/pharmacy #1972, 163.7, cm, 07/08/19 17:07:00 [...] 14:02:00 EDT, Route to Pharmacy Electronically, [facility]/pharmacy #1972, 163.7, cm, 02/29/20 14:54:00 [...]
[2022-09-01 02:59] LABS: Ethanol 149 mg/dL
[2022-09-01 03:08] LABS: HCG Quantitative < 2 mIU/mL
[2022-09-01 04:00] VITALS: BP 100/57; PULSE 89; RESP 16; TEMP 36.7; O2SAT 98
== END 2022-09-01 04:09 | disposition home or self-care (01) ==
PROVIDERS: Emergency Provider Student in an Organized Health Care Education/Training Program
DX: F10.129 Alcohol abuse with intoxication, unspecified (principal); Y90.9 Presence of alcohol in blood, level not specified; R11.2 Nausea with vomiting, unspecified; Z87.891 Personal history of nicotine dependence; Z79.899 Other long term (current) drug therapy
CPT/HCPCS: 36415; 80307; 81003; 81025; 82077; 82947; 84702; 99284; 99285

== ENCOUNTER 2023-07-29 12:51 | Outpatient (AMB) | payer OTHER, SELFPAY ==
--- NOTE | 2023-07-29 13:02 | A.OFFPC_ITS ---
Vital Signs 07/29/23 13:04 Height 5 ft 5 in Weight 199 lb 2 oz BMI 33.1 BP 100/68 Blood Pressure Location Lt brachial Position Sitting Pulse 63 Pulse Source Pulse Oximeter Pulse Oximetry (%) 98 Oxygen Delivery Method Room Air Intake Visit Reasons: Dis paperwork Allergies latex Allergy (Verified 07/29/23 17:38) rash ondansetron [From Zofran] Allergy (Verified 07/29/23 17:38) Nausea Medication List - Last Reconciled 07/29/23 by HENRIK Kirkpatrick-OMAR albuterol sulfate 90 mcg/actuation (Ventolin HFA) 2 puffs inhalation QID PRN ascorbic acid (vitamin C) (Vitamin C) 500 mg PO BID Tobacco use date assessed: 07/29/23 Dental Screening Dental Screen Date: 07/29/23 Did you have a dental visit in the last 12 months?: No Did you have a dental problem in the last 6 months where you did not have access to dental care?: No Was dental information given to patient?: No HPI Dis paperwork HPI Details Pt has a hx of fibromyalgia (apparently Dx around 2008). She reports flare ups where she develops diffuse pain throughout her body. Pt needs FMLA paperwork filled out for intermittent leave as her flare ups can cause her to miss work. Will fill this out. Will also refer to rheumatology. [facility], [facility] Medical History (Updated 07/29/23 @ 13:31 by HENRIK Kirkpatrick-OMAR) Patella-femoral syndrome Family hx-breast malignancy Fibromyalgia Anemia Asthma DVT (deep vein thrombosis) in Family History Father No problems noted. Paternal Grandfather Diabetes Paternal Grandmother Diabetes Mother Asthma Paternal Aunt Breast cancer Social History Household Members: Children Housing: Condominium Are you a primary complex care nurse practitioner to a significant other at home: No Do you presently have visiting nurse or other home services: No Alcohol intake: current Alcohol intake frequency: holidays/special occasions only Alcohol type: wine Patient Tobacco Use Status: Current everyday Tobacco user Cigarettes Per Day: 2 Years Smoked: since 15 years old e-Cigarette/Vaping Use: Never Used Second Hand Smoke Exposure: No Substance Use Type: Marijuana service: No Current occupational status: employed Current occupation: [employer] Current occupational exposures/hazards: No Cognitive needs: No Hearing needs: No Vision needs: No Questionnaire Thrive Questionnaire Date Thrive assessed: 01/14/22 BILL-7 AMB Questionnaire BILL-7 Date BILL - 7 assessed: 01/14/22 Source: Developed by Drs. Linden Steinberg, Deanne Sneed, Tato Mendenhall and colleagues, with an educational chris from [employer]. Review of Systems Const Reports as per HPI Physical exam (Primary Care) Vital Signs: Last Vital Signs Pulse 63 07/29/23 13:04 BP 100/68 07/29/23 13:04 Pulse Ox 98 07/29/23 13:04 Oxygen Delivery Method Room Air 07/29/23 13:04 BMI result Body Mass Index 33.1 Tobacco/Smoking Status: Tobacco use Status Tobacco use date assessed 07/29/23 07/29/23 13:11 Patient Tobacco Use Status Current everyday Tobacco 07/29/23 13:11 e-Cigarette/Vaping Use Never Used 07/29/23 13:03 Thrive Assessment: Date of Thrive Assessment Date Thrive assessed 01/14/22 07/29/23 13:03 Const General: cooperative Orientation/consciousness: patient oriented x3 Resp Effort & Inspection: normal respiratory effort Auscultation: clear to auscultation bilaterally Cardio Rate: regular rate Rhythm: regular rhythm Heart sounds: S1 normal heart sound present and S2 normal heart sound present Skin Other: point tenderness to upper torso, arms, thighs Neuro General: patient oriented x3 Psych Appearance: grossly normal Mental Status: mental status grossly normal Speech and movement: Normal speech and movement present Affect: normal affect Attitude: cooperative Thought process: Normal thought process present Thought content: Normal thought content present Insight: Good insight present (Psych) Judgement: Good judgement present (Psych) Assessment and Plan Assessment & Plan (1) Fibromyalgia: Code(s): M79.7 - Fibromyalgia Plan: Referred to rheumatology Plan The patient agreed to the use of a medical esthetician for this encounter. Scribed for MIRIAN Nicholas by Melonie Ferreira medical esthetician, on 07/29/2023 at 13:20 EST Orders: Referrals Rheumatology Referral M79.7 - Fibromyalgia Coding Level of Care Code Est Pt Level 3 (88377) Diagnoses Fibromyalgia M79.7
[2023-07-29 13:04] VITALS: BP 100/68; PULSE 63; O2SAT 98; BMI 33.1
== END 2023-07-29 15:42 | disposition home or self-care (01) ==
PROVIDERS: Visit Provider Nurse Practitioner Family
DX: M79.7 Fibromyalgia (principal)
CPT/HCPCS: 99213

== ENCOUNTER 2023-11-06 13:11 | Outpatient (AMB) | payer OTHER, SELFPAY ==
--- NOTE | 2023-11-06 13:16 | A.OFFVIS_ITS ---
Intake Vital Signs 11/06/23 13:26 Height 5 ft 5 in Weight 216 lb 0.848 oz BMI 35.9 BP 110/64 Blood Pressure Location Rt brachial Position Sitting Pulse 73 Pulse Source Pulse Oximeter Temp 97.6 F Temp Source Skin Pulse Oximetry (%) 97 Intake Visit Reasons: FM Intake Note: New pt presents today for FM consult. C/o pain in multiple places. Pain started approx 6 years ago Has tried ibuprofen but does not help her pains. 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 She was told that she has fibromyalgia a few years ago but she does not understand the condition and does not recall being started on any specific treatment. She states that she has has diffuse pain everywhere including her upper back, lower back, hands, hips, legs. Patient lifts weights regularly and the pain is worse with lifting, she has been using resistance bands recently because of the worsening pain. She has difficulty falling and staying asleep. She has history of eczema but no other known rashes. She had a DVT when in 2013. She was started on Lovenox until the end of her . She states that she had a superficial clot last year in her right leg that did not require anticoagulation. She is unaware of any family history of autoimmune rheumatic disease. She had 7 pregnancies total, 5 children and 1 , 1 miscarriage. She mentions history of PTSD. Used to talk to a therapist in the past. Not currently She denies any swollen joints. [facility] Medical History Patella-femoral syndrome Family hx-breast malignancy Fibromyalgia Anemia Asthma DVT (deep vein thrombosis) in Family History Father No problems noted. Paternal Grandfather Diabetes Paternal Grandmother Diabetes Mother Asthma Paternal Aunt Breast cancer Other Family history of arthritis Social History Household Members: Children Housing: Condominium Are you a primary outdoor emergency care technician to a significant other at home: No Do you presently have visiting nurse or other home services: No Alcohol intake: current Alcohol intake frequency: holidays/special occasions only Alcohol type: wine Patient Tobacco Use Status: Current everyday Tobacco user Cigarettes Per Day: 2 Years Smoked: since 15 years old e-Cigarette/Vaping Use: Never Used Second Hand Smoke Exposure: No Substance Use Type: Marijuana service: No Current occupational status: employed Current occupation: [employer] Current occupational exposures/hazards: No Cognitive needs: No Hearing needs: No Vision needs: No Female Reproductive History Menstrual Total pregnancies: 7 Number of Living Children: 5 Ab induced: 1 Ab spontaneous: 1 Review of Systems Const Reports fatigue, Reports headache(s), Reports weakness and Reports weight gain Eyes Reports blurry vision and Reports diplopia ENT Reports dysphagia, Reports headache(s), Reports neck pain and Reports tinnitus Card Reports chest pain and Reports dyspnea Resp Reports dyspnea GI Reports constipation, Reports dysphagia and Reports heartburn Reports sexual dysfunction Musc Reports back pain, Reports myalgias, Reports arthralgias, Denies joint swelling, Reports muscle weakness, Reports neck pain and Reports stiffness Skin/Breast Reports unusual bruising Neuro Reports headache(s), Reports memory loss and Reports weakness Psych Reports abnormal sleep pattern and Reports memory loss Endo Reports fatigue Physical Exam Vital Signs: Last Vital Signs Temp 97.6 F 11/06/23 13:26 Pulse 73 11/06/23 13:26 BP 110/64 11/06/23 13:26 Pulse Ox 97 11/06/23 13:26 BMI result Body Mass Index 35.9 Const General: cooperative, healthy appearing and comfortable Nutritional Appearance: obese Orientation/consciousness: patient oriented x3 Limitations: no limitations HEENT Head: Yes normocephalic and Yes atraumatic Mouth: moist mucous membranes Resp Effort & Inspection: normal respiratory effort and able to speak in complete sentences Auscultation: clear to auscultation bilaterally Cardio Rate: regular rate GI Inspection: No distended Palpation (GI): Soft to palpation and nontender Skin Other: Eczematous rash on right hand palm Neuro General: patient oriented x3 Extrem Other: Multiple fibromyalgia tender points No active synovitis Positive resisted wrist extension and resisted wrist flexion test bilaterally Normal nailfold capillaroscopy Assessment & Plan Assessment & Plan (1) Fibromyalgia: Code(s): M79.7 - Fibromyalgia Plan: This is a 33-year-old female who presents for fibromyalgia evaluation. I do not see any signs of an autoimmune rheumatic disease. Clinical picture consistent with fibromyalgia. She has some signs suggestive of bilateral tennis and golfer's elbow, but symptoms are mild. I inform patient that she might need occupational therapy if symptoms are progressively worse Discussed management of fibromyalgia with patient. Is a noninflammatory, non- autoimmune central afferent processing disorder leading to a diffuse pain syndrome. I suggested that patient try to address her underlying psychiatric issues, anxiety/PTSD. I suggested evaluation by a therapist and/or a psychiatrist. Try to follow sleep hygiene practices. Consider a referral for a sleep study by her PCP. Discuss CBT for sleep with psychotherapist. Patient exercises regularly in the gym, she prefers to lift weights but recently it has become more painful so she has been using resistance bands. I advised patient that regular exercise is helpful for fibromyalgia and while she may reduce her intensity she should continue with a regular exercise routine. Medications for fibromyalgia can be considered by PCP. But I suggest exploring non pharmacologic approach 1st Up with PCP Plan I spent 30 minutes reviewing patient's chart, evaluating patient, counseling patient and documenting in the chart Coding Level of Care Code New Pt Level 3 (99929) Diagnoses Fibromyalgia M79.7
[2023-11-06 13:26] VITALS: BP 110/64; PULSE 73; TEMP 36.4; O2SAT 97; BMI 35.9
== END 2023-11-06 14:01 | disposition home or self-care (01) ==
LOC: HO.RHE 13:11
PROVIDERS: Visit Provider Student in an Organized Health Care Education/Training Program
DX: M79.7 Fibromyalgia (principal)
CPT/HCPCS: 99203

== ENCOUNTER → 2023-11-06 13:11 | Outpatient (BNVA) | payer OTHER, SELFPAY | PROVIDERS: Visit Provider Student in an Organized Health Care Education/Training Program | DX: M79.7 Fibromyalgia (principal) | CPT/HCPCS: 99202 ==

== ENCOUNTER 2024-02-17 11:34 | Outpatient (AMB) | payer OTHER, SELFPAY ==
[2024-02-17 11:36] VITALS: BP 102/66; PULSE 65; O2SAT 97; BMI 37.3
--- NOTE | 2024-02-17 11:36 | A.OFFPC_ITS ---
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 Accompanied by: Self / Same As Patient Allergies latex Allergy (Verified 02/17/24 12:29) rash ondansetron [From Zofran] Allergy (Verified 02/17/24 12:29) Nausea Medication List - Last Reconciled 02/17/24 by MIRIAN Kirkpatrick albuterol sulfate 90 mcg/actuation (Ventolin HFA) 2 puffs inhalation QID PRN Tobacco use date assessed: 02/17/24 Dental Screening Dental Screen Date: 02/17/24 Did you have a dental visit in the last 12 months?: Yes Did you have a dental problem in the last 6 months where you did not have access to dental care?: No Was dental information given to patient?: Patient has dentist HPI Annual PE HPI Details Pt is here for a PE. Will order labs. Pt does not have a civil rights investigator, will refer. Pt follows up with rheumatology. Pt c/o right knee pain. Will order XR. Pt underwent extensive cosmetic surgery in February 2022. She reports excessive weight gain especially to her thighs and buttocks. Will refer to bariatrics. Pt is unhappy about the results of her surgery. Pt is requesting STD screening though denies any symptoms, will order. Thyroid appears enlarged on exam, will order US. [facility] Medical History (Updated 02/17/24 @ 12:07 by MIRIAN Kirkpatrick) Patella-femoral syndrome Family hx-breast malignancy Fibromyalgia Anemia Asthma DVT (deep vein thrombosis) in Surgical History No pertinent past surgical history Family History Father No problems noted. Paternal Grandfather Diabetes Paternal Grandmother Diabetes Mother Asthma Paternal Aunt Breast cancer Other Family history of arthritis Social History Household Members: Children Housing: [facility] Are you a primary critical care nurse specialist to a significant other at home: No Do you presently have visiting nurse or other home services: No Alcohol intake: current Alcohol intake frequency: holidays/special occasions only Alcohol type: wine Patient Tobacco Use Status: Current someday Tobacco user Cigarettes Per Day: 2 Years Smoked: since 15 years old e-Cigarette/Vaping Use: Never Used Second Hand Smoke Exposure: No Substance Use Type: Marijuana service: No Current occupational status: employed Current occupation: [employer] Current occupational exposures/hazards: No Cognitive needs: No Hearing needs: No Vision needs: No Questionnaire Thrive Questionnaire Date Thrive assessed: 01/14/22 AUDIT C Alcohol Use Questionnaire (AUDIT-C) 1. How often do you have a drink containing alcohol?: Monthly or less 2. How many drinks containing alcohol do you have on a typical day when you are drinking?: 1 or 2 3. How often do you have six or more drinks on one occasion?: Never Total Score: 1 Score Reviewed/Action Taken: Yes BILL-7 AMB Questionnaire BILL-7 Date BILL - 7 assessed: 01/14/22 Source: Developed by Drs. Linden Steinberg, Deanne Sneed, Tato Mendenhall and colleagues, with an educational chris from [employer]. Review of Systems Const Denies chills and Denies fever(s) Eyes Denies blurry vision ENT Denies vertigo, Denies dizziness and Denies sore throat Card Denies chest pain at rest, Denies chest pain with activity, Denies diaphoresis, Denies dyspnea and Denies dyspnea on exertion Resp Denies cough, Denies dyspnea, Denies dyspnea on exertion and Denies wheezing GI Denies abdominal pain, Denies melena, Denies hematochezia, Denies constipation, Denies diarrhea and Denies loose stools Denies hematuria Musc Denies numbness and Denies tingling Skin/Breast Denies lesions Neuro Denies vertigo, Denies dizziness, Denies numbness and Denies tingling Psych Denies anxiety, Denies depression, Denies homicidal ideation, Denies suicidal ideation and Denies other (substance abuse) Aller/Immun Denies wheezing Physical exam (Primary Care) Vital Signs: Last Vital Signs Pulse 65 02/17/24 11:36 BP 102/66 02/17/24 11:36 Pulse Ox 97 02/17/24 11:36 Oxygen Delivery Method Room Air 02/17/24 11:36 BMI result Body Mass Index 37.3 Tobacco/Smoking Status: Tobacco use Status Tobacco use date assessed 02/17/24 02/17/24 11:38 Patient Tobacco Use Status Current someday Tobacco 02/17/24 11:43 e-Cigarette/Vaping Use Never Used 02/17/24 11:38 Thrive Assessment: Date of Thrive Assessment Date Thrive assessed 01/14/22 02/17/24 11:38 Const General: cooperative Nutritional Appearance: obese Orientation/consciousness: patient oriented x3 HENMT Head: Yes normal to inspection, Yes normocephalic and Yes atraumatic Ears: TM's normal bilaterally Eyes General: appearance normal, both eyes and all related structures Alignment and Position: alignment normal and position normal Neck Other: thyroid appeared enlarged Neck: Yes normal visual inspection and Yes no lymphadenopathy Resp Effort & Inspection: normal respiratory effort Auscultation: clear to auscultation bilaterally Cardio Rate: regular rate Rhythm: regular rhythm Heart sounds: S1 normal heart sound present, S2 normal heart sound present and no murmurs GI Palpation (GI): Soft to palpation and nontender Auscultation: normal bowel sounds Skin Other: excessive adipose to BLE especially thighs Rashes: no rashes Neuro General: patient oriented x3, moves all extremities, no focal motor deficits and deep tendon reflexes 2+ bilaterally Romberg Test: Negative Extrem Other: right knee: - lachmans, - mcmurrays Psych Appearance: grossly normal Mental Status: mental status grossly normal Speech and movement: Normal speech and movement present Affect: normal affect Attitude: cooperative Thought process: Normal thought process present Thought content: Normal thought content present Insight: Good insight present (Psych) Judgement: Good judgement present (Psych) Assessment and Plan Assessment & Plan (1) Obesity: Code(s): E66.9 - Obesity, unspecified Plan: Labs ordered, referred to bariatric (2) Right knee pain: Code(s): M25.561 - Pain in right knee Plan: XR ordered (3) Physical exam: Code(s): Z00.00 - Encounter for general adult medical examination without abnormal findings (4) Screening for STD (sexually transmitted disease): Code(s): Z11.3 - Encounter for screening for infections with a predominantly sexual mode of transmission Plan: STD testing ordered (5) Screening for cervical cancer: Code(s): Z12.4 - Encounter for screening for malignant neoplasm of cervix (6) Enlarged thyroid: Code(s): E04.9 - Nontoxic goiter, unspecified Plan: US ordered Plan The patient agreed to the use of a medical radiation therapist for this encounter. Scribed for HENRIK Nicholas-BC by Melonie Ferreira medical radiation therapist, on 02/17/2024 at 11:45 EST. Orders: Orders Estradiol Ultra Sensitive Today E66.9 - Obesity, unspecified XR knee RT 2V Today M25.561 - Pain in right knee Comprehensive Adrian. Panel Fast Today Z00.00 - Encounter for general adult medical examination without abnormal findings TSH reflex Free T4 Today Z00.00 - Encounter for general adult medical examination without abnormal findings UA CC w/rflx Micro + Cult Today Z00.00 - Encounter for general adult medical ex amination without abnormal findings Lipid Panel Today Z00.00 - Encounter for general adult medical examination without abnormal findings CT NG by PCR Today Z11.3 - Encounter for screening for infections with a predominantly sexual mode of transmission HIV Ab/Ag Today Z11.3 - Encounter for screening for infections with a predominantly sexual mode of transmission Hepatitis A,B,C Profile Today Z11.3 - Encounter for screening for infections with a predominantly sexual mode of transmission Follicle Stimulating Hormone Today E66.9 - Obesity, unspecified Lutenizing Hormone Today E66.9 - Obesity, unspecified Complete Blood Count Auto Diff Today Z00.00 - Encounter for general adult medical examination without abnormal findings Syphilis Screen Today Z11.3 - Encounter for screening for infections with a predominantly sexual mode of transmission US thyroid Today E04.9 - Nontoxic goiter, unspecified Referrals Bariatric Surgery Referral E66.9 - Obesity, unspecified PRESIDENT + PUBLISHER Referral Z12.4 - Encounter for screening for malignant neoplasm of cervix Coding Level of Care Code Est Pt Prev Care 18-39y(48866) Diagnoses Obesity E66.9 Right knee pain M25.561 Physical exam Z00.00 Screening for STD (sexually transmitted disease) Z11.3 Screening for cervical cancer Z12.4 Enlarged thyroid E04.9
== END 2024-02-17 12:16 | disposition home or self-care (01) ==
PROVIDERS: Visit Provider Nurse Practitioner Family
DX: Z00.00 Encounter for general adult medical examination without abnormal findings (principal); E66.9 Obesity, unspecified; Z68.37 Body mass index [BMI] 37.0-37.9, adult; M25.561 Pain in right knee; Z11.3 Encounter for screening for infections with a predominantly sexual mode of transmission; E04.9 Nontoxic goiter, unspecified
CPT/HCPCS: 99395

== ENCOUNTER 2024-02-17 12:14 | Outpatient (REF) | payer OTHER, SELFPAY | END 2024-02-17 12:15 | disposition home or self-care (01) | LOC: HO.LAB 12:14 | PROVIDERS: Visit Provider Nurse Practitioner Family | DX: Z13.89 Encounter for screening for other disorder (principal) ==

== ENCOUNTER 2024-02-17 12:19 | Outpatient (REF) | payer OTHER, SELFPAY ==
[2024-02-17 13:08] LABS: MANUAL DIFF FLAG NO
[2024-02-17 13:32] LABS: Basophils Absolute Auto 0.1 X10*3/uL (0.0-0.2); Basophils Percent Auto 0.8 % (0-2); Eosinophils Absolute Auto 0.2 X10*3/uL (0.0-0.4); Eosinophils Percent Auto 2.8 % (0-4); Hematocrit 39.5 % (37.0-47.0); Hemoglobin 12.8 g/dl (12.0-16.0); Imm Gran Abs Auto 0.03 X10*3/uL (0.00-0.03); Imm Gran Pct Auto 0.4 % (0.0-0.4); Lymphocytes Absolute Auto 2.2 X10*3/uL (1.2-4.9); Lymphocytes Percent Auto 30.7 % (20-40); Mean Corpuscular HGB Conc 32.4 g/dl (31.0-35.0); Mean Corpuscular Hemoglobin 28.8 pg (27.0-33.0); Mean Platelet Volume 10.5 fL (9.4-12.3); Monocytes Absolute Auto 0.5 X10*3/uL (0.1-1.2); Monocytes Percent Auto 6.4 % (2-11); Neutrophils Absolute Auto 4.3 x10*3/uL (2.0-8.3); Neutrophils Percent Auto 58.9 % (45-73); Platelet Count 294 X10*3/uL (160-400); Red Blood Count 4.44 X10*6/uL (4.20-5.50); White Blood Count 7.2 X10*3/uL (4.8-10.8)
[2024-02-17 14:08] LABS: Alanine Aminotransferase 14 U/L (0-31); Albumin Level 4.6 g/dL (3.5-5.0); Alkaline Phosphatase 55 U/L (39-117); Anion Gap 13 (12-20); Aspartate Amino Transferase 18 U/L (5-31); Bilirubin Total 0.5 mg/dL (0.0-1.0); Blood Urea Nitrogen 9 mg/dL (9-16); Calcium 10.1 mg/dL (8.4-10.2); Carbon Dioxide 27 mmol/L (22-29); Chloride 105 mmol/L (96-108); Cholesterol 242 mg/dL (<200); Estimated Glomerular Filt Rate > 60; Glucose Fasting 90 mg/dL (60-99); HDL Cholesterol 74 mg/dL (>40); LDL Cholesterol Calculated 151 mg/dL (<100); Potassium 3.8 mmol/L (3.3-5.1); Sodium 141 mmol/L (135-145); Total Protein 7.8 g/dL (6.5-8.0); Triglycerides 87 mg/dL (<150)
[2024-02-17 14:25] LABS: TSH reflex Free T4 2.59 uIU/mL (0.32-4.0)
[2024-02-17 17:43] LABS: CT PCR NOT DETECTED (Not Detect.); NG PCR NOT DETECTED (Not Detect.)
[2024-02-18 04:08] LABS: Syphilis Screen Nonreactive (Nonreactive)
[2024-02-18 04:28] LABS: HBS Num1 20.92 mIU/mL (0-7.99); HBc Num1 0.07 S/CO (0.00-0.79); HBsAGNum1 0.39 S/CO (0.00-0.99); HIV AB/AG Nonreactive (Nonreactive); HIV Num 1 0.05 S/CO (0.00-0.99); Hepatitis A Antibody IgM 0.13 Index (0-0.79); Hepatitis B Core Antibody Nonreactive (Nonreactive); Hepatitis B Surface Antigen Negative (Negative); ~HepC Num1 0.06 S/CO (0.00-0.79); ~Hepatitis A Antibody IgM Nonreactive (Nonreactive); ~Hepatitis B Surface Antibody REACTIVE (Nonreactive); ~Hepatitis C Antibody Nonreactive (Nonreactive)
[2024-02-18 11:23] LABS: Follicle Stimulating Hormone 5.5 mIU/mL; Lutenizing Hormone 3.7 mIU/mL
[2024-02-24 01:09] LABS: Estradiol Ultra Sensitive 94 pg/mL
== END 2024-02-17 12:20 | disposition home or self-care (01) ==
LOC: HO.HMGCLDS 12:19
PROVIDERS: PCP Nurse Practitioner Family; Visit Provider Nurse Practitioner Family
DX: Z00.00 Encounter for general adult medical examination without abnormal findings (principal); E66.9 Obesity, unspecified; Z11.3 Encounter for screening for infections with a predominantly sexual mode of transmission
CPT/HCPCS: 0353U; 80053; 80061; 82670; 83001; 83002; 84443; 85025; 86704; 86706; 86709; 86780; 86803; 87340; 87389

== ENCOUNTER → 2024-02-25 13:26 | Outpatient (BNVA) | payer OTHER, SELFPAY | PROVIDERS: PCP Nurse Practitioner Family; Visit Provider Physician Assistant Surgical ==

== ENCOUNTER 2024-03-09 09:45 | Outpatient (REF) | payer OTHER, SELFPAY ==
--- NOTE | ~2024-03-09 | XR_ITS ---
EXAMINATION: XR KNEE, RIGHT CLINICAL INFORMATION: Right knee pain. COMPARISON: None available. TECHNIQUE: Two views of the right knee. FINDINGS: Alignment is anatomic. Mild narrowing of the medial joint space. No demonstrable spurring. No joint effusion. No fracture or suspicious osseous lesion. XR/XR knee RT 2V IMPRESSION: Mild narrowing of the medial compartment suggestive of early osteoarthritis.
--- NOTE | ~2024-03-09 | US_ITS ---
EXAMINATION: US THYROID CLINICAL INFORMATION: Nontoxic goiter, unspecified. COMPARISON: Thyroid ultrasound 09/01/2020. TECHNIQUE: Linear transducer grayscale and color Doppler examination with attention to the region of the thyroid. FINDINGS: SIZE: Measurements of the thyroid lobes and nodules are given in sagittal, anteroposterior and transverse dimensions respectively. Right Thyroid Lobe: 5.9 x 1.7 x 1.6 cm, volume 8.5 mL. Previously 5.1 x 2.1 x 1.5 cm, volume 8.4 mL. Parenchyma: The gland echotexture is homogeneous. Thyroid vascularity is normal. Left Thyroid Lobe: 5.3 x 1.5 x 1.7 cm, volume 7.0 mL. Previously 5.1 x 1.4 x 1.7 cm, volume 6.2 mL. Parenchyma: The gland echotexture is homogeneous. Thyroid vascularity is normal. Isthmus: 0.2 cm in maximum AP dimension. Previously 0.2 cm. Estimated total number of nodules greater than or equal to 1 cm: 0. Transport Rn nodules are described as follows: 1. Location: Right mid pole. Size: 0.2 x 0.2 x 0.2 cm, volume 0.005 mL. Previously: Not documented. Nodule characteristics: Composition: Cystic(0). ACR TI-RADS total points: 0 ACR TI-RADS category: 1 NODES: No lymphadenopathy is seen in the tissue surrounding the thyroid gland. US/US thyroid IMPRESSION: 0.2 cm right mid pole TR 1 nodule. TR1 (0 point) and TR2 (2 points): No FNA or followup ACR TI-RADS RECOMMENDATION REFERENCE: Ultrasound-guided fine-needle aspiration, follow up ultrasound, no further followup. * TR1 (0 point) and TR2 (2 points): No FNA or followup * TR3 (3 points): FNA if more than or equal to 2.5 cm in maximum dimension, follow up ultrasound in 1, 3 and 5 years if 1.5 to 2.4 cm in maximum dimension. * TR4 (4-6 points): FNA if more than or equal to 1.5 cm in maximum dimension, follow up ultrasound in 1, 2, 3 and 5 years if 1 to 1.4 cm in maximum dimension. * TR5 (more than or equal to 7 points): FNA if more than or equal to 1 cm in maximum dimension, follow up ultrasound every year for 5 years if 0.5 to 0.9 cm in maximum dimension. * TR3, TR4 or TR5 nodules that are below the size threshold for follow up receive no followup.
== END 2024-03-09 09:46 | disposition home or self-care (01) ==
LOC: HO.HMGCX 09:45
PROVIDERS: PCP Nurse Practitioner Family; Visit Provider Nurse Practitioner Family
DX: M25.561 Pain in right knee (principal); E04.9 Nontoxic goiter, unspecified
CPT/HCPCS: 73560; 76536

== ENCOUNTER 2024-03-15 09:49 | Outpatient (AMB) | payer OTHER, SELFPAY ==
[2024-03-15 09:54] VITALS: BP 100/66; BMI 38.6
--- NOTE | 2024-03-15 09:54 | A.OFFVIS_ITS ---
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 Cleveland in the past. She has 5 children the 1st delivered in [place] and the last 4 at [facility] she said she had a uterine prolapse as well as a DVT with her last at [facility] she was on Lovenox for a while it was stopped after . Her had the vasectomy after that . She had a mommy make over surgery in [place] complete with Lipo and she has not happy with the results because all of anything she gains anymore go straight to her arms and upper thighs she is varicose veins which are very painful to her as well she says she also has celiac disease. She said she had a mammogram before she had the breast surgery. She is 1 family member with history of breast cancer she thinks that might have had it at age 39 was grandmo ther. 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 She intends to resume in a weight loss effort with combination keto and intermittent fasting and high-intensity workouts. She remember history of an abnormal Pap in the past but thinks it was not that long ago she does not remember the follow-up. She has no particular worries about STDs accepts testing during the visit but does not think she needs blood work. She remembers seems I am so the urologist (it might of been a uro dust collector attendant at [facility] after the prolapse and was told that the anything they could consider doing was a surgery would stitches in to hold something up. She denies any incontinence she does Kegel's with her exercise. [facility] Medical History Patella-femoral syndrome Family hx-breast malignancy Fibromyalgia Anemia Asthma DVT (deep vein thrombosis) in Surgical History History of cosmetic plastic surgery Family History Father No problems noted. Paternal Grandfather Diabetes Paternal Grandmother Diabetes Mother Asthma Paternal Aunt Breast cancer Other Family history of arthritis Social History Household Members: Children Housing: [facility] Are you a primary child day care provider to a significant other at home: No Do you presently have visiting nurse or other home services: No Alcohol intake: current Alcohol intake frequency: holidays/special occasions only Alcohol type: wine Patient Tobacco Use Status: Current someday Tobacco user Cigarettes Per Day: 2 Years Smoked: since 15 years old e-Cigarette/Vaping Use: Never Used Second Hand Smoke Exposure: No Substance Use Type: Marijuana service: No Current occupational status: employed Current occupation: [employer] Current occupational exposures/hazards: No Cognitive needs: No Hearing needs: No Vision needs: No Female Reproductive History Menstrual Age of Menarche: 13 Duration of menses: 6-7 days Date of last menstrual period: 03/07/24 control method: permanent sterilization Permanent Sterilization: Vasectomy Total pregnancies: 7 Full term: 5 Number of Living Children: 5 Ab induced: 2 Date of last pap smear: 11/15/05 (LSIL) History of abnormal pap smear: Yes Physical Exam Vital Signs: Last Vital Signs BP 100/66 03/15/24 09:54 BMI result Body Mass Index 38.6 Const Other: Patient has scars from various cosmetic surgeries increased cellulitis adipose and upper arms and upper thighs. General: healthy appearing, comfortable, no acute distress, well developed and alert Nutritional Appearance: average body habitus Orientation/consciousness: patient oriented x3 Limitations: no limitations HEENT Head: Yes normocephalic Neck Neck: Yes normal visual inspection Chest Chest palpation & inspection: normal inspection of the chest Breast/axilla inspection: normal inspection of the breasts and normal inspection of the axillae Breast/axilla palpation: normal palpation of the breasts and normal palpation of the axillae Resp Effort & Inspection: normal respiratory effort GI Inspection: Yes normal to inspection, No Abdominal wall edema and No distended Palpation (GI): Soft to palpation and nontender General: Yes bladder normal to palpation External Female Exam: normal external appearance and normal appearance of the urethra Speculum Exam - Vagina: normal appearance of the vagina, normal palpation and normal vaginal discharge Speculum Exam - Cervix: normal appearance of the cervix, normal palpation and nontender Bimanual exam- vagina & uterus: normal bimanual exam, normal palpation, uterine size normal, bladder normal to palpation, consistency normal, normal palpation, uterine mobility normal, uterine shape normal, No Cervical tenderness present, non-tender and no cervical motion tenderness Bimanual Exam- Adnexa, other: normal adnexae, no masses, normal and No adnexal tenderness Neuro General: patient oriented x3 Assessment & Plan Assessment & Plan (1) Screening for cervical cancer: Code(s): Z12.4 - Encounter for screening for malignant neoplasm of cervix Category: Medical (2) Screening for STD (sexually transmitted disease): Code(s): Z11.3 - Encounter for screening for infections with a predominantly sexual mode of transmission Category: Medical (3) History of cosmetic plastic surgery: Comment: sophie brunsonnora 03/05/2022 Code(s): Z98.890 - Other specified postprocedural states Category: Surgical (4) Family hx-breast malignancy: Code(s): Z80.3 - Family history of malignant neoplasm of breast Category: Medical (5) Thyroid condition: Comment: Patient has thyroid US tomorrow. Code(s): E07.9 - Disorder of thyroid, unspecified Category: Medical (6) Breast cancer screening: Code(s): Z12.39 - Encounter for other screening for malignant neoplasm of breast Category: Medical Plan -----Discussed in this visit the following: healthy balanced diet, regular and consistent exercise, getting recommended health screens, doing the best she can for her particular health concerns, kegel exercises, pap smear screening and followup recommendations, mammography screening and SBE, normal changes in cycles in her life stage--- . She has not interested blood work for STIs. Discussed her history at some length and the challenges of weight loss the challenges when it comes back. She is going to double her efforts again. Discussed her many cosmetic surgeries in what she would have done differently. discussed role of exercise protein vegetables carbohydrates. and Discussed the for her with her history probably mammograms with started age 39 as she has already had a screening 1 before her make over surgery. Discussed that if she did have more problems with prolapse she would 1 seek out urogynecology [facility], probably where she was seen before. She also raised the question her heavy crampy periods and this is just what she has tried before for control all of the she had negative side effects. Discussed that the only way to tell somebody really has endometriosis is with diagnostic surgery 1st it would be recommended to try other hormonal methods to see the effect menses. She is not interested in any of those at this time. RTC 1 year Orders: Orders Bacterial Vaginosis Panel Today N89.8 - Other specified noninflammatory disorders of vagina CT NG by PCR Today N89.8 - Other specified noninflammatory disorders of vagina Pap Smear Today Z12.4 - Encounter for screening for malignant neoplasm of cervix Coding Level of Care Code New Pt Prev Care 18-39yr([id number] Diagnoses Screening for cervical cancer Z12.4 Screening for STD (sexually transmitted disease) Z11.3 History of cosmetic plastic surgery Z98.890 Family hx-breast malignancy Z80.3 Thyroid condition E07.9 Breast cancer screening Z12.39
== END 2024-03-15 10:50 | disposition home or self-care (01) ==
PROVIDERS: PCP Nurse Practitioner Family; Visit Provider Advanced Practice Midwife
DX: Z01.419 Encounter for gynecological examination (general) (routine) without abnormal findings (principal); Z80.3 Family history of malignant neoplasm of breast
CPT/HCPCS: 99385

== ENCOUNTER 2024-03-15 09:49 | Outpatient (REF) | payer OTHER, SELFPAY ==
[2024-03-16 09:09] LABS: Bacterial Vaginosis PCR NEGATIVE (Negative); Candida Group PCR NOT DETECTED (Not Detect); Candida glab krusei PCR NOT DETECTED (Not Detect); Trichomonas vaginalis PCR NOT DETECTED (Not Detect)
[2024-03-16 10:30] LABS: CT PCR NOT DETECTED (Not Detect.); NG PCR NOT DETECTED (Not Detect.)
[2024-03-19 15:33] LABS: HPV mRNA E6/E7 rflx Not Detected (Not Detected)
== END 2024-03-15 09:50 | disposition home or self-care (01) ==
LOC: HO.LNP 09:49
PROVIDERS: PCP Nurse Practitioner Family; Visit Provider Advanced Practice Midwife
DX: Z01.419 Encounter for gynecological examination (general) (routine) without abnormal findings (principal); N89.8 Other specified noninflammatory disorders of vagina; Z80.3 Family history of malignant neoplasm of breast; Z98.890 Other specified postprocedural states
CPT/HCPCS: 0352U; 0353U; 87624; 88142; 99385

== ENCOUNTER 2024-03-29 07:01 | Outpatient (AMB) | payer OTHER, SELFPAY ==
--- NOTE | 2024-03-29 07:47 | A.OFFPC_ITS ---
Intake Visit Reasons: Discuss imaging results and next steps Allergies latex Allergy (Verified 03/15/24 09:56) rash ondansetron [From Zofran] Allergy (Verified 03/15/24 09:56) Nausea Tobacco use date assessed: 02/17/24 Dental Screening Dental Screen Date: 02/17/24 HPI Discuss imaging results and next steps HPI Details Pt was seen in the ER on 03/10 c/o left flank and LLQ pain. CT scan did not show acute findings. It was believed that pt passed a kidney stone. She reports some ongoing flank pain. Will repeat UA and labs. Denies fever, chills, and hematuria. [facility] Medical History Patella-femoral syndrome Family hx-breast malignancy Fibromyalgia Anemia Asthma DVT (deep vein thrombosis) in Surgical History History of cosmetic plastic surgery Family History Father No problems noted. Paternal Grandfather Diabetes Paternal Grandmother Diabetes Mother Asthma Paternal Aunt Breast cancer Other Family history of arthritis Social History Household Members: Children Housing: [facility] Are you a primary care coordination manager to a significant other at home: No Do you presently have visiting nurse or other home services: No Alcohol intake: current Alcohol intake frequency: holidays/special occasions only Alcohol type: wine Patient Tobacco Use Status: Current someday Tobacco user Cigarettes Per Day: 2 Years Smoked: since 15 years old e-Cigarette/Vaping Use: Never Used Second Hand Smoke Exposure: No Substance Use Type: Marijuana service: No Current occupational status: employed 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 Linden Steinberg, Deanne Sneed, Tato Mendenhall and colleagues, with an educational chris from [employer]. Review of Systems Const Reports as per HPI Physical exam (Primary Care) Tobacco/Smoking Status: Tobacco use Status Tobacco use date assessed 02/17/24 03/29/24 07:47 Patient Tobacco Use Status Current someday Tobacco 03/29/24 07:47 e-Cigarette/Vaping Use Never Used 03/29/24 07:47 Thrive Assessment: Date of Thrive Assessment Date Thrive assessed 01/14/22 03/29/24 07:47 Const General: cooperative Orientation/consciousness: patient oriented x3 Neuro General: patient oriented x3 Psych Appearance: grossly normal Mental Status: mental status grossly normal Speech and movement: Clear speech present Affect: normal affect Attitude: cooperative Thought process: Normal thought process present Thought content: Normal thought content present Insight: Good insight present (Psych) Judgement: Good judgement present (Psych) Telehealth Telehealth Telehealth Platform: [employer] Location of provider rendering services: practice address Location of patient: address on file Patient Identification confirmed using: Name, : Yes Telehealth method: video Patient verbally consented to treatment: Yes Patient verbally consented to billing insurance company: Yes Patient informed of any privacy concerns related to visit: Yes Minutes spent on Phone/Video with Pt.: 15 Assessment and Plan Assessment & Plan (1) Flank pain: Code(s): R10.9 - Unspecified abdominal pain Plan: Labs and UA ordered, no changes in bowel activity Plan The patient agreed to the use of a curator medical museum for this encounter. Scribed for HENRIK Nicholas-OMAR by Melonie Ferreira curator medical museum, on 03/29/2024 at 07:45 EST. Orders: Orders TSH reflex Free T4 Today R10.9 - Unspecified abdominal pain UA CC w/rflx Micro + Cult Today R10.9 - Unspecified abdominal pain Complete Blood Count Auto Diff Today R10.9 - Unspecified abdominal pain Comprehensive Met. Panel Today R10.9 - Unspecified abdominal pain Coding Level of Care Code Tele Est Pt Level 3 (35780) Diagnoses Flank pain R10.9
== END 2024-03-29 10:40 | disposition home or self-care (01) ==
LOC: HO.HMGC 07:01
PROVIDERS: PCP Nurse Practitioner Family; Visit Provider Nurse Practitioner Family
DX: R10.9 Unspecified abdominal pain (principal)
CPT/HCPCS: 99213

== ENCOUNTER 2024-03-29 10:03 | Outpatient (REF) | payer OTHER, SELFPAY ==
[2024-03-29 13:14] LABS: Appearance Urine Turbid; Color Urine Yellow; Glucose Urine UA Negative (Negative); Leukocyte Esterase Urine Negative (Negative); Nitrite Urine Negative (Negative); PH 5.5 (5.0-9.0); Urine Blood Negative (Negative); Urine Ketones Negative (Negative); Urine Protein Negative (Neg-Trace)
[2024-03-29 13:27] LABS: MANUAL DIFF FLAG NO
[2024-03-29 13:44] LABS: Basophils Absolute Auto 0.1 X10*3/uL (0.0-0.2); Basophils Percent Auto 0.7 % (0-2); Eosinophils Absolute Auto 0.2 X10*3/uL (0.0-0.4); Eosinophils Percent Auto 2.4 % (0-4); Hematocrit 39.4 % (37.0-47.0); Hemoglobin 12.5 g/dl (12.0-16.0); Imm Gran Abs Auto 0.02 X10*3/uL (0.00-0.03); Imm Gran Pct Auto 0.3 % (0.0-0.4); Lymphocytes Absolute Auto 2.4 X10*3/uL (1.2-4.9); Lymphocytes Percent Auto 32.4 % (20-40); Mean Corpuscular HGB Conc 31.7 g/dl (31.0-35.0); Mean Corpuscular Hemoglobin 28.3 pg (27.0-33.0); Mean Corpuscular Volume 89.1 fL (80.0-98.0); Mean Platelet Volume 11.3 fL (9.4-12.3); Monocytes Absolute Auto 0.5 X10*3/uL (0.1-1.2); Monocytes Percent Auto 6.4 % (2-11); Neutrophils Absolute Auto 4.3 x10*3/uL (2.0-8.3); Neutrophils Percent Auto 57.8 % (45-73); Platelet Count 213 X10*3/uL (160-400); Red Blood Count 4.42 X10*6/uL (4.20-5.50); Red Cell Distribution Width 14.1 % (11.0-16.0); White Blood Count 7.4 X10*3/uL (4.8-10.8)
[2024-03-29 14:07] LABS: Alanine Aminotransferase 12 U/L (0-31); Albumin Level 4.1 g/dL (3.5-5.0); Alkaline Phosphatase 44 U/L (39-117); Anion Gap 11 (12-20); Aspartate Amino Transferase 15 U/L (5-31); Bilirubin Total 0.2 mg/dL (0.0-1.0); Blood Urea Nitrogen 14 mg/dL (9-16); Calcium 9.5 mg/dL (8.4-10.2); Carbon Dioxide 23 mmol/L (22-29); Chloride 109 mmol/L (96-108); Estimated Glomerular Filt Rate > 60; Glucose Random 108 mg/dL (60-115); Potassium 4.4 mmol/L (3.3-5.1); Sodium 139 mmol/L (135-145); Total Protein 6.8 g/dL (6.5-8.0)
[2024-03-29 14:26] LABS: TSH reflex Free T4 1.96 uIU/mL (0.32-4.0)
== END 2024-03-29 10:04 | disposition home or self-care (01) ==
LOC: HO.HMGCLDS 10:03
PROVIDERS: PCP Nurse Practitioner Family; Visit Provider Nurse Practitioner Family
DX: R10.9 Unspecified abdominal pain (principal)
CPT/HCPCS: 36415; 80053; 81003; 84443; 85025

== ENCOUNTER 2024-04-02 09:23 | Outpatient (AMB) | payer OTHER, SELFPAY ==
[2024-04-02 09:54] VITALS: BP 122/70; PULSE 76; TEMP 36.3; O2SAT 98; BMI 39.3
--- NOTE | 2024-04-02 09:54 | AM.OFFWIN_ITS ---
Intake Vital Signs 04/02/24 09:54 Height 5 ft 5 in Weight 236 lb BMI 39.3 BP 122/70 Blood Pressure Location Lt brachial Position Sitting Pulse 76 Pulse Source Pulse Oximeter Temp 97.4 F Temp Source Temporal Artery Scan Pulse Oximetry (%) 98 Oxygen Delivery Method Room Air Intake Visit Reasons: EP rash LT breast causing pain/radiating shoulder Intake Note: pt is here today for rash lft breast causing pain radiating shoulder started friday Patient Tobacco Use Status: Current someday Tobacco user Allergies latex Allergy (Verified 04/02/24 09:59) rash ondansetron [From Zofran] Allergy (Verified 04/02/24 09:59) Nausea Do you need a note to return to daycare/school/sports/work: Yes HPI HPI Comments History of Present Illness Details Patient is a 34-year-old female complaining of a rash on her left breast causing pain that radiates to her shoulder x6 days. She states she has burning pain that radiates to her left shoulder and back. She states she went to the emergency department and they gave her a prescription for Keflex and tramadol because they thought it was more of a skin infection, but they told her it could be shingles. She states the Keflex and tramadol did not help. She denies any fevers PFSH Medical History Patella-femoral syndrome Family hx-breast malignancy Fibromyalgia Anemia Asthma DVT (deep vein thrombosis) in Surgical History History of cosmetic plastic surgery Family History Father No problems noted. Paternal Grandfather Diabetes Paternal Grandmother Diabetes Mother Asthma Paternal Aunt Breast cancer Other Family history of arthritis Social History Household Members: Children [facility] Are you a primary resident care spec to a significant other at home: No Do you presently have visiting nurse or other home services: No Alcohol intake: current Alcohol intake frequency: holidays/special occasions only Alcohol type: wine Patient Tobacco Use Status: Current someday Tobacco user Cigarettes Per Day: 2 Years Smoked: since 15 years old e-Cigarette/Vaping Use: Never Used Second Hand Smoke Exposure: No Substance Use Type: Marijuana service: No Current occupational status: employed Current occupation: [employer] Current occupational exposures/hazards: No Cognitive needs: No Hearing needs: No Vision needs: No Female Reproductive History Menstrual Age of Menarche: 13 Review of Systems Const All systems reviewed & are unremarkable except as noted in HPI and below Physical Exam Vital Signs: Last Vital Signs Temp 97.4 F 04/02/24 09:54 Pulse 76 04/02/24 09:54 BP 122/70 04/02/24 09:54 Pulse Ox 98 04/02/24 09:54 Oxygen Delivery Method Room Air 04/02/24 09:54 BMI result Body Mass Index 39.3 Const General: cooperative, healthy appearing, comfortable, no acute distress and well developed Orientation/consciousness: patient oriented x3 Limitations: no limitations HEENT Head: Yes normal to inspection Eyes General: appearance normal, both eyes and all related structures Neck Neck: Yes normal visual inspection and Yes full ROM Resp Effort & Inspection: normal respiratory effort and able to speak in complete sentences Skin General skin exam: no rashes or lesions noted Neuro General: patient oriented x3 Extrem General: Yes normal to inspection Assessment & Plan Assessment & Plan (1) Shingles outbreak: Code(s): B02.9 - Zoster without complications Qualifiers: Herpes zoster complications: without complications Qualified Code(s): B02.9 - Zoster without complications Plan: VSS, Pt is past 72 hours for treatment with antiviral for the shingles. I am unable to send a prescription for gabapentin due to technical issues with [facility] so my colleague will be sending a prescription on my behalf. Did authorize a work note for 2 days. Plan See above Coding Level of Care Code Est Pt Level 3 (07633) Diagnoses Herpes zoster without complication B02.9 Herpes zoster complications: without complications
== END 2024-04-02 10:34 | disposition home or self-care (01) ==
PROVIDERS: PCP Nurse Practitioner Family; Visit Provider Physician Assistant
DX: B02.9 Zoster without complications (principal)
CPT/HCPCS: 99213

== ENCOUNTER 2024-04-05 11:26 | Outpatient (AMB) | payer OTHER, SELFPAY ==
[2024-04-05 12:06] VITALS: BP 118/72; PULSE 71; TEMP 37.1; O2SAT 99
--- NOTE | 2024-04-05 12:06 | MHC.OFFWIV ---
Intake Vital Signs 04/05/24 12:06 Height 5 ft 5 in BP 118/72 Blood Pressure Location Rt brachial Position Sitting Pulse 71 Pulse Source Pulse Oximeter Temp 98.8 F Temp Source Oral Pulse Oximetry (%) 99 Intake Visit Reasons: EP Shingles Intake Note: pt is here for complaint of shingles Patient Tobacco Use Status: Current someday Tobacco user Allergies latex Allergy (Verified 04/05/24 12:14) rash ondansetron [From Zofran] Allergy (Verified 04/05/24 12:14) Nausea Do you need a note to return to daycare/school/sports/work: No HPI HPI Comments History of Present Illness Details Patient presents back to the walk-in today for sick visit Seen here 3 days ago for rash, diagnosed with shingles. She was given gabapentin 300 mg 3 times daily She reports rash continues to develop and new areas are coming out Pain continues, severe despite the gabapentin. She is also taking Tylenol and ibuprofen. She was given tramadol at the ER last week but has run out. Prior visit at [facility] from 04/02/2024: Patient is a 34-year-old female complaining of a rash on her left breast causing pain that radiates to her shoulder x6 days. She states she has burning pain that radiates to her left shoulder and back. She states she went to the emergency department and they gave her a prescription for Keflex and tramadol because they thought it was more of a skin infection, but they told her it could be shingles. She states the Keflex and tramadol did not help. She denies any fevers [facility] Medical History Patella-femoral syndrome Family hx-breast malignancy Fibromyalgia Anemia Asthma DVT (deep vein thrombosis) in Surgical History History of cosmetic plastic surgery Family History Father No problems noted. Paternal Grandfather Diabetes Paternal Grandmother Diabetes Mother Asthma Paternal Aunt Breast cancer Other Family history of arthritis Social History Household Members: Children Housing: [facility] Are you a primary acute care nurse practitioner to a significant other at home: No Do you presently have visiting nurse or other home services: No Alcohol intake: current Alcohol intake frequency: holidays/special occasions only Alcohol type: wine Patient Tobacco Use Status: Current someday Tobacco user Cigarettes Per Day: 2 Years Smoked: since 15 years old e-Cigarette/Vaping Use: Never Used Second Hand Smoke Exposure: No Substance Use Type: Marijuana service: No Current occupational status: employed Current occupation: [employer] Current occupational exposures/hazards: No Cognitive needs: No Hearing needs: No Vision needs: No Female Reproductive History Menstrual Age of Menarche: 13 Review of Systems Const All systems reviewed & are unremarkable except as noted in HPI and below Physical Exam Vital Signs: Last Vital Signs Temp 98.8 F 04/05/24 12:06 Pulse 71 04/05/24 12:06 BP 118/72 04/05/24 12:06 Pulse Ox 99 04/05/24 12:06 General: awake, alert, oriented. Answers questions appropriately. Fully engaged in examination. Skin: warm, dry, intact. Vesicular rash noted in very stages of healing. Flat, non oozing, non fluid-filled areas 2 left breast and left upper arm. Fluid filled vesicles left mid back. HEENT: Normocephalic. Hearing intact. Cardiac: External chest normal in appearance. Respiratory: No cough, audible wheezing or stridor. Speaking in full sentences. No angio or periorbital edema noted Abdomen: without gross distension. MS: No obvious swelling or deformities. Neurological: Oriented to person, place, time and situation. Thought process intact. No gait abnormalities appreciated. Psychiatric: Appropriate mood and affect. Good judgment and insight. Assessment & Plan Assessment & Plan (1) Shingles outbreak: Code(s): B02.9 - Zoster without complications Qualifiers: Herpes zoster complications: without complications Qualified Code(s): B02.9 - Zoster without complications Plan Increase gabapentin to 600 mg t.i.d., patient advised on cautions for use Valacyclovir 1000 mg p.o. t.i.d. x7 days, will with antivirals as rash continues to develop a new areas of the same dermatomes Work note provided All questions and concerns were answered patient agrees with the plan Follow up with PCP or return here for any new or worsening symptoms Medications: New valacyclovir 1,000 mg PO TID 7 days 21 tabs 0RF gabapentin 600 mg PO TID 60 tabs 0RF Coding Level of Care Code Est Pt Level 3 (26116) Diagnoses Herpes zoster without complication B02.9 Herpes zoster complications: without complications
== END 2024-04-05 13:22 | disposition home or self-care (01) ==
PROVIDERS: PCP Nurse Practitioner Family; Visit Provider Registered Nurse Emergency
DX: B02.9 Zoster without complications (principal)
CPT/HCPCS: 99213

== ENCOUNTER 2024-05-06 11:23 | Outpatient (AMB) | payer OTHER, SELFPAY ==
--- NOTE | 2024-05-06 11:29 | A.OFFPC_ITS ---
Vital Signs 05/06/24 11:33 Height 5 ft 5 in Weight 234 lb BMI 38.9 BP 126/84 Blood Pressure Location Lt brachial Position Sitting Pulse 71 Pulse Source Pulse Oximeter Pulse Oximetry (%) 98 Oxygen Delivery Method Room Air Intake Visit Reasons: 3M F/U labs Intake Note: Patient here for f/u on labs Allergies latex Allergy (Verified 05/06/24 11:33) rash ondansetron [From Zofran] Allergy (Verified 05/06/24 11:33) Nausea Tobacco use date assessed: 02/17/24 Dental Screening Dental Screen Date: 02/17/24 HPI 3M F/U labs HPI Details Pt had a recent thyroid US which showed 0.2 cm right mid pole TR 1 nodule. TR1 (0 point) and TR2 (2 points). Discussed results with pt. Denies fever, chills, and dizziness. Pt has FMLA paperwork. She does not know what this is for and neither do I. Pt is very frustrated about a cosmetic surgery she had in February 2022. [facility] Medical History Patella-femoral syndrome Family hx-breast malignancy Fibromyalgia Anemia Asthma DVT (deep vein thrombosis) in Surgical History History of cosmetic plastic surgery Family History Father No problems noted. Paternal Grandfather Diabetes Paternal Grandmother Diabetes Mother Asthma Paternal Aunt Breast cancer Other Family history of arthritis Social History Household Members: Children [facility] Are you a primary youth care specialist to a significant other at home: No Do you presently have visiting nurse or other home services: No Alcohol intake: current Alcohol intake frequency: holidays/special occasions only Alcohol type: wine Patient Tobacco Use Status: Current someday Tobacco user Cigarettes Per Day: 2 Years Smoked: since 15 years old e-Cigarette/Vaping Use: Never Used Second Hand Smoke Exposure: No Substance Use Type: Marijuana service: No Current occupational status: employed 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 Linden Steinberg, Deanne Sneed, Tato Mendenhall and colleagues, with an educational chris from [employer]. Review of Systems Const Reports as per HPI Physical exam (Primary Care) Vital Signs: Last Vital Signs Pulse 71 05/06/24 11:33 BP 126/84 05/06/24 11:33 Pulse Ox 98 05/06/24 11:33 Oxygen Delivery Method Room Air 05/06/24 11:33 BMI result Body Mass Index 38.9 Tobacco/Smoking Status: Tobacco use Status Tobacco use date assessed 02/17/24 05/06/24 11:32 Patient Tobacco Use Status Current someday Tobacco 05/06/24 11:32 e-Cigarette/Vaping Use Never Used 05/06/24 11:32 Thrive Assessment: Date of Thrive Assessment Date Thrive assessed 01/14/22 05/06/24 11:32 Const General: cooperative Nutritional Appearance: obese Orientation/consciousness: patient oriented x3 Resp Effort & Inspection: normal respiratory effort Auscultation: clear to auscultation bilaterally Cardio Rate: regular rate Rhythm: regular rhythm Heart sounds: S1 normal heart sound present and S2 normal heart sound present Neuro General: patient oriented x3 Psych Appearance: grossly normal Mental Status: mental status grossly normal Speech and movement: Normal speech and movement present Affect: normal affect Attitude: cooperative Thought process: Normal thought process present Thought content: Normal thought content present Insight: Good insight present (Psych) Judgement: Good judgement present (Psych) Assessment and Plan Assessment & Plan (1) Obesity: Code(s): E66.9 - Obesity, unspecified Plan: encoruaged weight loss through diet and exercise (2) Thyroid condition: Code(s): E07.9 - Disorder of thyroid, unspecified Plan: no follow up recommended currently Plan The patient agreed to the use of a medical claims examiner for this encounter. Scribed for MIRIAN Nicholas by Melonie Ferreira medical claims examiner, on 05/06/2024 at 11:50 EST. Coding Level of Care Code Est Pt Level 3 (05154) Diagnoses Obesity E66.9 Thyroid condition E07.9
[2024-05-06 11:33] VITALS: BP 126/84; PULSE 71; O2SAT 98; BMI 38.9
== END 2024-05-06 14:10 | disposition home or self-care (01) ==
PROVIDERS: Visit Provider Nurse Practitioner Family
DX: E07.9 Disorder of thyroid, unspecified (principal); E66.9 Obesity, unspecified; Z68.38 Body mass index [BMI] 38.0-38.9, adult
CPT/HCPCS: 99213

== ENCOUNTER 2024-07-28 08:43 | Outpatient (AMB) | payer OTHER, SELFPAY ==
--- NOTE | 2024-07-28 07:10 | MHC.PC.OV ---
Intake Visit Reasons: FMLApaperWorkQuestions Allergies latex Allergy (Verified 05/06/24 11:33) rash ondansetron [From Zofran] Allergy (Verified 05/06/24 11:33) Nausea Tobacco use date assessed: 02/17/24 Dental Screening Dental Screen Date: 02/17/24 HPI FMLApaperWorkQuestions HPI Details Pt has a hx of fibromyalgia. She reports that it is difficult to work when she has flares. Pt needs FMLA paperwork filled out for this, will fill out. Pt is following up with bariatrics. Denies fever, chills, and dizziness. [facility] Medical History Patella-femoral syndrome Family hx-breast malignancy Fibromyalgia Anemia Asthma DVT (deep vein thrombosis) in Surgical History History of cosmetic plastic surgery Family History Father No problems noted. Paternal Grandfather Diabetes Paternal Grandmother Diabetes Mother Asthma Paternal Aunt Breast cancer Other Family history of arthritis Social History Household Members: Children Housing: [facility] Are you a primary patient care director to a significant other at home: No Do you presently have visiting nurse or other home services: No Alcohol intake: current Alcohol intake frequency: holidays/special occasions only Alcohol type: wine Patient Tobacco Use Status: Current someday Tobacco user Cigarettes Per Day: 2 Years Smoked: since 15 years old Packs per year/per ci.00 e-Cigarette/Vaping Use: Never Used Second Hand Smoke Exposure: No Substance Use Type: Marijuana service: No Current occupational status: employed 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 Linden Steinberg, Deanne SneedTato and colleagues, with an educational chris from [employer]. Review of Systems Const Reports as per HPI Physical exam (Primary Care) Tobacco/Smoking Status: Tobacco use Status Tobacco use date assessed 02/17/24 07/28/24 07:14 Patient Tobacco Use Status Current someday Tobacco 07/28/24 07:14 e-Cigarette/Vaping Use Never Used 07/28/24 07:14 Thrive Assessment: Date of Thrive Assessment Date Thrive assessed 01/14/22 07/28/24 07:14 Const General: cooperative Orientation/consciousness: patient oriented x3 Neuro General: patient oriented x3 Psych Appearance: grossly normal Mental Status: mental status grossly normal Speech and movement: Clear speech present Affect: normal affect Attitude: cooperative Thought process: Normal thought process present Thought content: Normal thought content present Insight: Good insight present (Psych) Judgement: Good judgement present (Psych) Telehealth Telehealth Telehealth Platform: [employer] Location of provider rendering services: practice address Location of patient: address on file Patient Identification confirmed using: Name, : Yes Telehealth method: video Patient verbally consented to treatment: Yes Patient verbally consented to billing insurance company: Yes Patient informed of any privacy concerns related to visit: Yes Minutes spent on Phone/Video with Pt.: 10 Coding Level of Care Code Tele Est Pt Level 3 (75169) Diagnoses Fibromyalgia M79.7 Assessment & Plan Assessment & Plan (1) Fibromyalgia: Code(s): M79.7 - Fibromyalgia Category: Medical Plan: pt saw rheumatology, is currently following up with bariatrics for weight loss Plan The patient agreed to the use of a certified medical coder for this encounter. Scribed for MIRIAN Nicholas by bob Eddy, on 07/28/2024 at 07:10 EST.
== END 2024-07-28 08:47 | disposition home or self-care (01) ==
LOC: HO.HMCC 08:43
PROVIDERS: PCP Nurse Practitioner Family; Visit Provider Nurse Practitioner Family
DX: M79.7 Fibromyalgia (principal)

== ENCOUNTER → 2024-07-28 08:43 | Outpatient (BNVA) | payer OTHER, SELFPAY | PROVIDERS: PCP Nurse Practitioner Family; Visit Provider Nurse Practitioner Family | DX: M79.7 Fibromyalgia (principal) ==

== ENCOUNTER 2024-12-08 09:39 | Outpatient (REF) | payer OTHER, SELFPAY ==
[2024-12-09 07:17] LABS: CT PCR NOT DETECTED (Not Detect.); NG PCR NOT DETECTED (Not Detect.)
[2024-12-09 18:14] LABS: Bacterial Vaginosis PCR NEGATIVE (Negative); Candida Group PCR DETECTED (Not Detect); Candida glab krusei PCR NOT DETECTED (Not Detect); Trichomonas vaginalis PCR NOT DETECTED (Not Detect)
== END 2024-12-08 09:40 | disposition home or self-care (01) ==
LOC: HO.LAB 09:39
PROVIDERS: PCP Nurse Practitioner Family; Visit Provider Physician Assistant
DX: R10.30 Lower abdominal pain, unspecified (principal); Z11.3 Encounter for screening for infections with a predominantly sexual mode of transmission
CPT/HCPCS: 81003; 81515; 87491; 87591; 99212

== ENCOUNTER 2024-12-08 09:39 | Outpatient (AMB) | payer OTHER, SELFPAY ==
--- NOTE | 2024-12-08 09:55 | AM.OFFWIN_ITS ---
Intake Vital Signs 12/08/24 10:01 Weight 232 lb BP 126/80 Blood Pressure Location Rt brachial Position Sitting Pulse 62 Pulse Source Pulse Oximeter Pulse Oximetry (%) 98 Oxygen Delivery Method Room Air Intake Visit Reasons: EP Lower abd pain, radiating to the back Intake Note: patient here for lower abd pain that radiates to the back. Patient Tobacco Use Status: Current someday Tobacco user Allergies latex Allergy (Verified 12/08/24 10:08) rash ondansetron [From Zofran] Allergy (Verified 12/08/24 10:08) Nausea Do you need a note to return to daycare/school/sports/work: No HPI HPI Comments History of Present Illness0 Details History of Present Illness - The patient is a 34-year-old female pr esenting with lower abdominal pain x a few days. - She reports the pain as often severe, sometimes extending to the lower back, particularly during intercourse, and has experienced recent dysuria. - The urine has developed a musty odor - The patient denies experiencing abnorm al vaginal discharge or recent fever and has a history of painful menstruation. - Previous investigations into possible endometriosis were not completed due to issues with a specialist referral. - The patient's partner has had a vasect tomás, which they believe rules out . LMP 11/20/24. Physical Exam General: Cooperative, healthy appearing, comfortable, no acute distress and well developed Orientation: Patient oriented x3 Limitations: No limitations Head: Normal to inspection Ears: Hearing grossly normal bilaterally Nose: Normal external nose present Face and sinus: Normal facial exam Eyes: Appearance normal, both eyes and all related structures Neck: Normal visual inspection and Yes full ROM Respiratory: Normal respiratory effort and able to speak in complete sentences. GI: lower abdomen slightly TTP, soft Skin: No rashes or lesions noted Neuro: Patient oriented x3 Extremities: Normal to inspection [facility] Medical History Patella-femoral syndrome Family hx-breast malignancy Fibromyalgia Anemia Asthma DVT (deep vein thrombosis) in Surgical History History of cosmetic plastic surgery Family History Father No problems noted. Paternal Grandfather Diabetes Paternal Grandmother Diabetes Mother Asthma Paternal Aunt Breast cancer Other Family history of arthritis Social History Household Members: Children [facility] Are you a primary dialysis patient care technician to a significant other at home: No Do you presently have visiting nurse or other home services: No Alcohol intake: current Alcohol intake frequency: holidays/special occasions only Alcohol type: wine Patient Tobacco Use Status: Current someday Tobacco user Cigarettes Per Day: 2 Years Smoked: since 15 years old e-Cigarette/Vaping Use: Never Used Second Hand Smoke Exposure: No Substance Use Type: Marijuana service: No Current occupational status: employed Current occupation: [email or web address] Current occupational exposures/hazards: No Cognitive needs: No Hearing needs: No Vision needs: No Female Reproductive History Menstrual Age of Menarche: 13 Review of Systems Const All systems reviewed & are unremarkable except as noted in HPI and below Physical Exam Vital Signs: Last Vital Signs Pulse 62 12/08/24 10:01 BP 126/80 12/08/24 10:01 Pulse Ox 98 12/08/24 10:01 Oxygen Delivery Method Room Air 12/08/24 10:01 Results AMB Urinalysis, Automated UA Leukoctes 0 Daphne/uL Last Edit by JD Barksdale on 12/08/24 10:43 UA Nitrite Negative Last Edit by JD Barksdale on 12/08/24 10:43 UA Urobilinogen mg/dL Last Edit by JD Barksdale on 12/08/24 10:4 3 UA Protein 0 mg/dL Last Edit by JD Barksdale on 12/08/24 10:43 UA pH 5.5 Last Edit by JD Barksdale on 12/08/24 10:43 UA Blood 10 Dl/uL Last Edit by JD Barksdale on 12/08/24 10:43 UA Specific [place] 1.025 Last Edit by JD Barksdale on 12/08/24 10:43 UA Ketone Negative Last Edit by JD Barksdale on 12/08/24 10:43 UA Bilirubin 0 mg/dL Last Edit by JD Barksdale on 12/08/24 10:43 UA Glucose 0 mg/dL Last Edit by JD Barksdale on 12/08/24 10:43 Results Reviewed Results Reviewed: Laboratory Last Values Urine pH (Auto) 5.5 12/08/24 10:40 Specific [place] (Auto) 1.025 12/08/24 10:40 Urine Protein (Auto) 0 mg/dL 12/08/24 10:40 Glucose (UA)(Auto) 0 mg/dL 12/08/24 10:40 Urine Ketones (Auto) Negative 12/08/24 10:40 Urine Blood (Auto) 10 Dl/uL 12/08/24 10:40 Urine Nitrite (Auto) Negative 12/08/24 10:40 Urine Bilirubin (Auto) 0 mg/dL 12/08/24 10:40 Leukocyte Esterase (Auto) 0 Daphne/uL 12/08/24 10:40 Assessment & Plan Assessment & Plan (1) Lower abdominal pain: Code(s): R10.30 - Lower abdominal pain, unspecified Plan: UA neg for leuks, nitrites but + blood. I will initiate treatment for a presumed urinary tract infection with cefuroxime to be taken twice daily for five days. Given the negative UA, I stressed the importance of obtaining a urine culture for further investigation if feasible. The patient is advised to perform a swab for a bacterial vaginosis panel to rule out conditions such as bacterial vaginosis, paula, trichomoniasis, as well as chlamydia, and gonorrhea. Adjustments in treatment will be considered based on these results. The patient is guided on facilitating urine sample collection through methods such as running water, while also highlighting the significance of post-vasectomy testing verification. No further blood work is planned unless new concerns ar ise. Patient was informed and verbally consented to the use of an ambient scribe for clinic note documentation during this visit. Orders: Orders CT NG by PCR Today R10.30 - Lower abdominal pain, unspecified Bacterial Vaginosis Panel Today R10.30 - Lower abdominal pain, unspecified Urine Culture Today N39.0 - Urinary tract infection, site not specified AMB Urinalysis Automated Today Z13.9 - Encounter for screening, unspecified Medications: New cefuroxime axetil 500 mg PO Q12H 10 tabs 0RF Coding Level of Care Code Est Pt Level 4 (42753) Diagnoses Lower abdominal pain R10.30
[2024-12-08 10:01] VITALS: BP 126/80; PULSE 62; O2SAT 98
--- OUTSIDE RECORDS SUMMARY | 2024-12-08 10:54 | XMS_ITS ---
Author Name [facility] Organization Unknown Results Test Name/Text Value Interpretation Date Range Source CREAT SERPL MCNC 0.7mg/dL Normal [id number] 0.5 - 1 [facility] CALCIUM SERPL MCNC 9.7mg/dL Normal [id number] 8.4 - 10 .2 [facility] SODIUM SERPL SCNC 137mmol/L Normal [id number] 135 - 145 [facility] ANION GAP SERPL SCNC 7mmol/L Normal [id number] 5 - 14 [facility] Glomerular filtration rate/1.73 sq M. predicted 116 Normal [id number] 60 - [facility] HCO3 SER SCNC 23mmol/L Below low normal [id number] 24 - 3 2 [facility] GLUCOSE SERPL MCNC 98mg/dL Normal [id number] 70 - 199 [facility] BUN SERPL MCNC 14mg/dL Normal [id number] 7 - 17 [facility] CHLORIDE SERPL SCNC 107mmol/L Normal [id number] 98 - 10 7 [facility] POTASSIUM SERPL SCNC 4.2mmol/L Normal [id number] 3.5 - 5.1 [facility] PLATELET NO. BLD AUTO 222K/uL Normal [id number] 150 - 450 [facility] RBC NO. BLD AUTO 4.48M/uL Normal [id number] 4.2 - 5.4 [facility] NUCLEATED RBC 0% Normal [id number] 0 - 1 [facility] LYMPHOCYTES NO. BLD AUTO 1.7K/uL Normal [id number] 1 - 3.2 [facility] EOSINOPHIL NO. BLD AUTO 0.2K/uL Normal [id number] 0 - 0.5 [facility] MCH RBC QN AUTO 28.6pg Normal [id number] 25 - 33 [facility] MCHC RBC AUTO MCNC 33.4g/dL Normal [id number] 32 - 36 [facility] MONOCYTES NFR BLD AUTO 8% Normal [id number] 2 - 12 [facility] IMMATURE GRANULOCYTE, ABSOLUTE 0.03k/uL Normal [id number] - 0.1 [facility] LYMPHOCYTES NFR BLD AUTO 24.9% Normal [id number] 20 - 48 [facility] EOSINOPHIL NFR BLD AUTO 3% Normal [id number] 0 - 6 [facility] HGB BLD MCNC 12.8g/dL Normal [id number] 12.5 - 16 [facility] NEUTROPHILS NO. BLD AUTO 4.3K/uL Normal [id number] 1.8 - 7.8 [facility] WBC NO. BLD AUTO 6.8K/uL Normal [id number] 4 - 10.5 [facility] BASOPHILS NFR BLD AUTO 0.7% Normal [id number] 0 - 2 [facility] MONOCYTES NO. BLD AUTO 0.5K/uL Normal [id number] 0 - 0.8 [facility] MCV RBC AUTO 85.5fL Normal [id number] 78 - 100 [facility] NEUTROPHILS NFR BLD AUTO 63% Normal [id number] 44 - 74 [facility] IMMATURE GRANULOCYTE, PERCENT 0.4% Normal [id number] 0 - 1 [facility] BASOPHILS IN BLOOD BY AUTOMATED COUNT 0.1K/uL Normal [id number] 0 - 0.2 [facility] PMV BLD AUTO 10.5fL Normal [id number] 7.4 - 11.4 [facility] RDW RBC AUTO RTO 14% Normal [id number] 12.1 - 16. 2 [facility] HCT VFR BLD AUTO 38.3% Normal [id number] 37 - 47 [facility] CREAT SERPL MCNC 0.7mg/dL Normal [id number] 0.5 - 1 [facility] CALCIUM SERPL MCNC 9.3mg/dL Normal [id number] 8.4 - 10 .2 [facility] SODIUM SERPL SCNC 139mmol/L Normal [id number] 135 - 145 [facility] ANION GAP SERPL SCNC 7mmol/L Normal [id number] 5 - 14 [facility] Glomerular filtration rate/1.73 sq M. predicted 116 Normal [id number] 60 - [facility] HCO3 SER SCNC 26mmol/L Normal [id number] 24 - 32 [facility] GLUCOSE SERPL MCNC 61mg/dL Below low normal [id number] 0 - 199 [facility] BUN SERPL MCNC 12mg/dL Normal [id number] 7 - 17 [facility] CHLORIDE SERPL SCNC 106mmol/L Normal [id number] 98 - 10 7 [facility] POTASSIUM SERPL SCNC 4.3mmol/L Normal [id number] 3.5 - 5.1 [facility] PLATELET NO. BLD AUTO 274K/uL Normal [id number] 150 - 450 [facility] RBC NO. BLD AUTO 4.36M/uL Normal [id number] 4.2 - 5.4 [facility] NUCLEATED RBC 0% Normal [id number] 0 - 1 [facility] LYMPHOCYTES NO. BLD AUTO 2.4K/uL Normal [id number] 1 - 3.2 [facility] EOSINOPHIL NO. BLD AUTO 0.2K/uL Normal [id number] 0 - 0.5 [facility] MCH RBC QN AUTO 28.7pg Normal [id number] 25 - 33 [facility] MCHC RBC AUTO MCNC 32.3g/dL Normal [id number] 32 - 36 [facility] MONOCYTES NFR BLD AUTO 9% Normal [id number] 2 - 12 [facility] IMMATURE GRANULOCYTE, ABSOLUTE 0.04k/uL Normal [id number] - 0.1 [facility] LYMPHOCYTES NFR BLD AUTO 28.5% Normal [id number] 20 - 48 [facility] EOSINOPHIL NFR BLD AUTO 2.7% Normal [id number] 0 - 6 [facility] HGB BLD MCNC 12.5g/dL Normal [id number] 12.5 - 16 [facility] NEUTR[facility] NO. BLD AUTO 5K/uL Normal [id number] 1.8 - 7.8 [facility] WBC NO. BLD AUTO 8.5K/uL Normal [id number] 4 - 10.5 [facility] BASOPHILS NFR BLD AUTO 0.7% Normal [id number] 0 - 2 [facility] MONOCYTES NO. BLD AUTO 0.8K/uL Normal [id number] 0 - 0.8 [facility] MCV RBC AUTO 88.8fL Normal [id number] 78 - 100 [facility] NEUTROPHILS NFR BLD AUTO 58.6% Normal [id number] 44 - 74 [facility] IMMATURE GRANULOCYTE, PERCENT 0.5% Normal [id number] 0 - [address] [facility] BASOPHILS IN BLOOD BY AUTOMATED COUNT 0.1K/uL Normal [id number] 0 - 0.2 [facility] PMV BLD AUTO 10.5fL Normal [id number] 7.4 - 11.4 [facility] RDW RBC AUTO RTO 14.2% Normal [id number] 12.1 - 16. 2 [facility] HCT VFR BLD AUTO 38.7% Normal [id number] 37 - 47 [facility] SQUAMOUS NO./AREA URNS LPF 2/LPF Normal [id number] 0 - 5 [facility] RBC number/area UrnS Auto 12/HPF Above high normal [id number] 0 - 3 [facility] WBC number/area UrnS Auto 2/HPF Normal [id number] 0 - 5 [facility] Clarity Ur Refract.auto CLEAR Normal [id number] [facility] Prot Ur Ql Strip.auto NEGATIVE Normal [id number] - [facility] Glucose Ur Ql Strip.auto NEGATIVE Normal [id number] - [facility] Nitrite Ur Ql Strip.auto NEGATIVE Normal [id number] - [facility] Sp Gr Ur Strip.auto >1.030 Above high normal [id number] 1.005 - 1.03 [facility] Hgb Ur Ql Strip.auto MODERATE Abnormal [id number] - [facility] Ketones Ur Ql Strip.auto NEGATIVE Normal [id number] - [facility] Leukocyte esterase Ur Ql Strip.auto NEGATIVE Normal [id number] - [facility] pH Ur Strip.auto 5.5 Normal [id number] 4.5 - 8 [facility] SPECIMEN SOURCE XXX URINE CLEAN CATCH Normal [id number] [facility] CREAT SERPL MCNC 0.7mg/dL Normal [id number] 0.5 - 1 [facility] CALCIUM SERPL MCNC 9.5mg/dL Normal [id number] 8.4 - 10 .2 [facility] SODIUM SERPL SCNC 137mmol/L Normal [id number] 135 - 145 [facility] ANION GAP SERPL SCNC 5mmol/L Normal [id number] 5 - 14 [facility] Glomerular filtration rate/1.73 sq M. predicted 116 Normal [id number] 60 - [facility] HCO3 SER SCNC 26mmol/L Normal [id number] 24 - 32 [facility] GLUCOSE SERPL MCNC 82mg/dL Normal [id number] 70 - 199 [facility] BUN SERPL MCNC 15mg/dL Normal [id number] 7 - 17 [facility] CHLORIDE SERPL SCNC 106mmol/L Normal [id number] 98 - 10 7 [facility] POTASSIUM SERPL SCNC 4.2mmol/L Normal [id number] 3.5 - 5.1 [facility] D DIMER DDU PPP EIA MCNC 190ng/mLDDU Normal [id number] - 231 [facility] Clarity Ur Refract.auto CLEAR Normal [id number] [facility] Prot Ur Ql Strip.auto NEGATIVE Normal [id number] - [facility] Glucose Ur Ql Strip.auto NEGATIVE Normal [id number] - [facility] Nitrite Ur Ql Strip.auto NEGATIVE Normal [id number] - [facility] Hgb Ur Ql Strip.auto TRACE Abnormal [id number] - [facility] Ketones Ur Ql Strip.auto NEGATIVE Normal [id number] - [facility] Leukocyte esterase Ur Ql Strip.auto NEGATIVE Normal [id number] - [facility] Sp Gr Ur Strip.auto 1.025 Normal [id number] 1.005 - 1.03 [facility] pH Ur Strip.auto 5 Normal [id number] 4.5 - 8 [facility] SQUAMOUS NO./AREA URNS LPF 2/LPF Normal [id number] 0 - 5 [facility] RBC number/area UrnS Auto 2/HPF Normal [id number] 0 - 3 [facility] WBC number/area UrnS Auto 1/HPF Normal [id number] 0 - 5 [facility] PLATELET NO. BLD AUTO 202K/uL Normal [id number] 150 - 450 [facility] RBC NO. BLD AUTO 4.32M/uL Normal [id number] 4.2 - 5.4 [facility] LYMPHOCYTES NO. BLD AUTO 2K/uL Normal [id number] 1 - 3.2 [facility] EOSINOPHIL NO. BLD AUTO 0.2K/uL Normal [id number] 0 - 0.5 [facility] MCH RBC QN AUTO 29.4pg Normal [id number] 25 - 33 [facility] MCHC RBC AUTO MCNC 32.5g/dL Normal [id number] 32 - 36 [facility] MONOCYTES NFR BLD AUTO 6.3% Normal [id number] 2 - 12 [facility] IMMATURE GRANULOCYTE, ABSOLUTE 0.01k/uL Normal [id number] - 0.1 [facility] LYMPHOCYTES NFR BLD AUTO 27.5% Normal [id number] 20 - 48 [facility] EOSINOPHIL NFR BLD AUTO 2.3% Normal [id number] 0 - 6 [facility] HGB BLD MCNC 12.7g/dL Normal [id number] 12.5 - 16 [facility] NEUTROPHILS NO. BLD AUTO 4.7K/uL Normal [id number] 1.8 - 7.8 [facility] WBC NO. BLD AUTO 7.4K/uL Normal [id number] 4 - 10.5 [facility] BASOPHILS NFR BLD AUTO 0.5% Normal [id number] 0 - 2 [facility] MONOCYTES NO. BLD AUTO 0.5K/uL Normal [id number] 0 - 0.8 [facility] MCV RBC AUTO 90.5fL Normal [id number] 78 - 100 [facility] NEUTROPHILS NFR BLD AUTO 63.3% Normal [id number] 44 - 74 [facility] IMMATURE GRANULOCYTE, PERCENT 0.1% Normal [id number] 0 - 1 [facility] BASOPHILS IN BLOOD BY AUTOMATED COUNT 0K/uL Normal [id number] 0 - 0.2 [facility] PMV BLD AUTO 10.7fL Normal [id number] 7.4 - 11.4 [facility] RDW RBC AUTO RTO 14% Normal [id number] 12.1 - 16. 2 [facility] HCT VFR BLD AUTO 39.1% Normal [id number] 37 - 47 [facility] SPECIMEN SOURCE XXX URINE CLEAN CATCH Normal [id number] [facility] History of Medication Use Medication Directions Dispensed Refills Start Date End Date Stat us traMADol (ULTRAM) 50 MG tablet Take 50 mg by mouth every 6 (six) hours as needed for pain for up to 8 doses. 03/31/2024 active Problems Problem Status Onset Date Problem Type Date of Resoluti on Source Rash active [facility] Pain in left axilla active EncounterDiagnosisAct [facility]
--- OUTSIDE RECORDS SUMMARY | 2024-12-08 10:54 | XMS_ITS | Clinical Summary ---
Author Organization [facility] Address [address] [place] [address] Care Team Providers Care Press Operator Name Role Phone Jesse Pa Primary Care Provider [phone] Allergies Active Allergy Reactions Criticality Noted Date Comments Latex 03/10/2024 Medications Medication Sig Dispensed Refills Start Date End Date Status albuterol (PROVENTIL) (2.5 MG/3ML) 0.083% nebulizer solution Inhale 3 mL (2.5 mg total) into the lungs. 0 11/15/2016 Active traMADol (ULTRAM) 50 MG tablet Take 50 mg by mouth every 6 (six) hours as needed for pain for up to 8 doses. 8 tablet 0 03/31/2024 Active Active Problems No known active problems Social History Tobacco Use Types Packs/Day Years Used Date Smoking Tobacco: Every Day Cigarettes Tobacco Cessation:Ready to Q uit: Not Asked; Counseling Given: Not Answered Alcohol Use Standard Drinks/Week Comments Never 0 (1 standard drink = 0.6 oz pur e alcohol) Sex and Gender Information Value Date Recorded Sex Assigned at Female 03/15/2022 6:34 PM EDT Gender Identity Not on file Sexual Orientation Not on file Job Start Date Occupation Industry Not on file Not on file Not on file Last Filed Vital Signs Vital Sign Reading Time Taken Comments Blood Pressure 112/84 03/31/2024 1:05 PM EDT Pulse 77 03/31/2024 1:05 PM EDT Temperature 37.1 ??C (98.8 ??F) 03/31/2024 1:05 PM ED T Respiratory Rate 16 03/31/2024 1:05 PM EDT Oxygen Saturation 100% 03/31/2024 1:05 PM EDT Inhaled Oxygen Concentration - - Weight 104.3 kg (230 lb) 03/31/2024 10:23 AM EDT Height 165.1 cm (5' 5 ) 03/31/2024 10:23 AM EDT Body Mass Index 38.27 03/31/2024 10:23 AM EDT Plan of Treatment Health Maintenance Due Date Last Done Comments Hepatitis B Vaccines (1 of 3 - 3-dose series) 1989 Hepatitis C Screening 1989 COVID-19 Vaccine (#1) 1989 Pneumococcal Vaccine (1 of 2 - PCV) 1995 Depression Screening 2001 Preventative Health Evaluation 2007 Cervical Cancer Screening (Pap Smear) 2010 DTap / Tdap / Td (2 - Td or Tdap) 04/28/2023 04/28/2013 Influenza Vaccine (#1) 2024 4, 12/23/2013, 07/04/2012 RSV Ped < 20 months Aged Out No longe r eligible based on patient's age to complete this topic Care Teams Press Operator Relationship Specialty Start Date End Date Jesse Pa: [phone] [address] [facility] [place] [address] PCP - General Family Medicine 03/15/22
--- OUTSIDE RECORDS SUMMARY | 2024-12-08 10:55 | XMS_ITS | Clinical Summary ---
Author Organization [address] [place] [address] [place] [phone] Phone Care Team Providers Care Service Order Dispatcher Chief Name Role Phone Jesse Pa NP Primary Care Provider Allergies Active Allergy Reactions Criticality Noted Date Comments Cat Dander 09/19/2015 Runny nose , watery eye's Dog Dander 09/19/2015 Hives, runny nose , watery , swelling in the eye's Latex 07/09/2013 Other Reaction(s): Rash/Dermatitis Mold 09/19/2015 Runny nose , watery eye's Active Problems Problem Noted Date Diagnosed Date Goiter 07/31/2015 Iron deficiency anemia 07/31/2015 DVT (deep vein thrombosis) in 02/03/20 14 Asthma 12/23/2013 Obesity 12/23/2013 Abdominal pain 04/23/2013 Overview (09/29/2024): 04/08-Borderline size of the spleen. Suggestion of the left ovarian cyst IMO Update Fall 2015 Encounters Date Type Department Care Team Description 11/02/2024 9:00 AM EST Telemedicine Bariatric Surgery [facility] [address] [place] [address] Class 3 severe obesity without serious comorbidity with body mass index (BMI) of 40.0 to 44.9 in adult, unspecified obesity type (CMS/HCC) (Primary Dx) 09/30/2024 9:30 AM EST Telemedicine Bariatric Surgery - [address] [place] [address] Class 3 severe obesity without serious comorbidity with body mass index (BMI) of 40.0 to 44.9 in adult, unspecified obesity type (CMS/HCC) (Primary Dx); Personal history of nutritional deficiency from Last 3 Months Immunizations Name Administration Dates Next Due Influenza trivalent, 0.5mL, preservative free (Fluarix; FluLaval; Fluzone) ages 6mo and older (Afluria) 3 years and older 12/23/2013 MMR, measles mumps and rubel la Live (Priorix; M-M-R II) 12mo and older 05/24/2015,02/06/2015 PPD Test 04/28/2013 Tdap Tetanus diptheria acell ular pertussis (Boostrix; Adacel) 7yo and older 04/28/2013 Varicella live (Varivax) 12mo and older 02/07/20 15 Surgical History Surgery Date Site/Laterality Comments ABDOMINAL SURGERY PROCEDURE:ABDOMINAL SURGERY COSMETIC SURGERY PROCEDURE:COSMETIC SURGERY Social History Tobacco Use Types Packs/Day Years Used Date Smoking Tobacco: Every Day Alcohol Use Standard Drinks/Week Comments Never 0 (1 standard drink = 0.6 oz pur e alcohol) Comments Unknown Sex and Gender Information Value Date Recorded Sex Assigned at Not on file Legal Sex Female 3:06 PM EST Gender Identity Not on file Sexual Orientation Not on file Obstetrics History Last Filed Vital Signs Vital Sign Reading Time Taken Comments Blood Pressure 117/83 06/01/2024 2:40 PM EDT Pulse 78 06/01/2024 2:40 PM EDT Temperature - - Respiratory Rate - - Oxygen Saturation - - Inhaled Oxygen Concentration - - Weight 113 kg (249 lb 1.9 oz) 11/02/2024 9:00 AM EST Height 165.1 cm (5' 5 ) 06/01/2024 2:40 PM EDT Body Mass Index 41.46 06/01/2024 2:40 PM EDT Plan of Treatment Health Maintenance Due Date Last Done Comments Hepatitis B Vaccines (1 of 3 - 19+ 3-dose series) 2008 Pneumococcal Vaccine: Pediatrics (0 to 5 Years) and At-Risk Patients (6 to 64 Years) (1 of 2 - PCV) 2008 Cervical Cancer Screening: Pap Smear 2010 HPV Vaccines (2 - 3-dose series) 12/22/2012 11/24/2012 Cholesterol Screening (Lipid Panel) 09/25/2022 02/22/2015 Depression Screening 09/25/2022 Social Influencers of Health Screening 09/25/2022 COVID-19 Vaccine ( season) 2024 Influenza Vaccine (#1) 2024 4, 12/23/2013, 12/23/2013, Additional history exists DTaP,Tdap,and Td Vaccines (4 - Td or Tdap) 07/13/2024 07/13/2014, 04/28/2013, 07/03/2012 HIV Screening Completed 07/12/2015 Hepatitis C Screening Completed 07/12/2015 MMR Vaccines Aged Out 12/18/2016, 04/27, 02/06/2015 No longer eligible based on patient's age to complete this topic Varicella Vaccines Aged Out 12/18/2016, 02/06/2015 No longer eligible based on patient's age to complete this topic HIB Vaccines Aged Out No longer eligi ble based on patient's age to complete this topic Hepatitis A Vaccines Aged Out No long er eligible based on patient's age to complete this topic IPV Vaccines Aged Out No longer eligi ble based on patient's age to complete this topic Meningococcal ACWY Vaccine Aged Out N o longer eligible based on patient's age to complete this topic Meningococcal B Vacine Aged Out No lo nger eligible based on patient's age to complete this topic RSV Immunization Patients Under 20 months Aged Out No longer eligible based on patient's age to complete this topic Procedures Procedure Name Priority Date/Time Associated Diagnosis Comments HEPATITIS C SCREENING Routine 07/12/2015 HIV SCREENING Routine 07/12/2015 LIPID PANEL Routine 02/22/2015 from Last 3 Months or Most Recently Relevant to Health Maintenance Results * HIV Screening (07/12/2015) HIV Screening abstracted us Historical Provider HEALTH MAINTENANCE Final Result * Hepatitis C Screening (07/12/2015) Hepatitis C Screening abstracted Historical Provider HEALTH MAINTENANCE Final Result * (ABNORMAL) Lipid panel (02/22/2015) LDL/HDL Ratio 3 0 - 4 Triglycerides 83 0 - 150 mg/dL Cholesterol 189 0 - 200 mg/dL HDL 61 >=40 mg/dL LDL Cholesterol 111(A) 0 - 100 mg/dL Blood Venous blood specimen / Unknown us Historical Provider LAB BLOOD ORDERABLES Diane l Result from Last 3 Months or Most Recently Relevant to Health Maintenance Insurance [facility] [employer] Care Teams Service Order Dispatcher Chief Relationship Specialty Start Date End Date Jesse Pa NP [address], [place] PCP - General 03/15/22
== END 2024-12-08 10:40 | disposition home or self-care (01) ==
PROVIDERS: PCP Nurse Practitioner Family; Visit Provider Physician Assistant
DX: R10.30 Lower abdominal pain, unspecified (principal); Z13.9 Encounter for screening, unspecified

== ENCOUNTER 2025-03-02 07:58 | Outpatient (REF) | payer OTHER, SELFPAY ==
--- OUTSIDE RECORDS SUMMARY | 2025-03-02 09:27 | XMS_ITS | Clinical Summary ---
Author Organization [facility] Address [address] [place] [address] Care Team Providers Care Rn Embedded Name Role Phone Jesse Pa Primary Care Provider [phone] Allergies Active Allergy Reactions Criticality Noted Date [...] age to complete this topic Care Teams Rn Embedded Relationship Specialty Start Date End Date Jesse Pa: [phone] [address] [facility] [place] [address] PCP - General Family Medicine 03/15/22
--- OUTSIDE RECORDS SUMMARY | 2025-03-02 09:28 | XMS_ITS | Clinical Summary ---
Author Organization 175 [facility] Address [address] [place] [phone] Phone Care Team Providers Care Magazine Journalist Name Role Phone Jesse Pa NP Primary [...] in adult, unspecified whether serious comorbidity present ([facility] V24, [facility] V28) Take 0.5 tablets (25 mg total) [...] PM EDT Office Visit Bariatric Surgery - [address] [place] [address] Estuardo Najera MD Class 3 severe obesity due to excess calories with body mass index (BMI) of 40.0 to 44.9 in adult, unspecified whether serious comorbidity present ([facility] V24, [facility] V28) (Primary Dx) from Last 3 Months [...] PM EDT Office Visit Bariatric Surgery - [place] 175 [facility] [address] [place] [phone] Estuardo Najera MD [address] [address] Health Maintenance Due Date Last Done Comments [...] Maintenance Results * HIV Screening (07/12/2015) Pathologist [facility] HIV Screening abstracted [facility] Provider HEALTH MAINTENANCE Final Result * Hepatitis C Screening (07/12/2015) Pathologist [facility] Hepatitis C Screening abstracted [facility] Provider HEALTH MAINTENANCE Final Result * (ABNORMAL) Lipid panel (02/22/2015) Pathologist [facility] LDL/HDL Ratio 3 0 - 4 Triglycerides 83 0 - 150 mg/dL Cholesterol 189 0 - 200 mg/dL HDL 61 >=40 mg/dL LDL Cholesterol 111(A) 0 - 100 mg/dL Blood Venous blood specimen / Unknown [facility] Provider LAB BLOOD ORDERABLES Diane l Result from Last 3 Months or Most Recently Relevant to Health Maintenance Insurance [facility] PL[facility] Care Teams Magazine Journalist Relationship Specialty Start Date End Date Jesse Pa NP [address] [place], [place] PCP - General 03/15/22
[2025-03-02 10:10] LABS: MANUAL DIFF FLAG NO
[2025-03-02 10:14] LABS: Appearance Urine Clear; Color Urine Yellow; Glucose Urine UA Negative (Negative); Leukocyte Esterase Urine Negative (Negative); Nitrite Urine Negative (Negative); PH 5.5 (5.0-9.0); Urine Blood Negative (Negative); Urine Ketones Negative (Negative); Urine Protein Negative (Neg-Trace)
[2025-03-02 10:18] LABS: Basophils Absolute Auto 0.1 X10*3/uL (0.0-0.2); Basophils Percent Auto 0.7 % (0-2); Eosinophils Absolute Auto 0.2 X10*3/uL (0.0-0.4); Eosinophils Percent Auto 1.9 % (0-4); Hematocrit 37.9 % (37.0-47.0); Hemoglobin 12.1 g/dl (12.0-16.0); Imm Gran Abs Auto 0.06 X10*3/uL (0.00-0.03); Imm Gran Pct Auto 0.6 % (0.0-0.4); Lymphocytes Absolute Auto 2.6 X10*3/uL (1.2-4.9); Lymphocytes Percent Auto 24.7 % (20-40); Mean Corpuscular HGB Conc 31.9 g/dl (31.0-35.0); Mean Corpuscular Hemoglobin 27.1 pg (27.0-33.0); Mean Corpuscular Volume 84.8 fL (80.0-98.0); Mean Platelet Volume 10.5 fL (9.4-12.3); Monocytes Absolute Auto 0.7 X10*3/uL (0.1-1.2); Monocytes Percent Auto 6.4 % (2-11); Neutrophils Absolute Auto 6.8 x10*3/uL (2.0-8.3); Neutrophils Percent Auto 65.7 % (45-73); Platelet Count 286 X10*3/uL (160-400); Red Blood Count 4.47 X10*6/uL (4.20-5.50); Red Cell Distribution Width 14.9 % (11.0-16.0); White Blood Count 10.4 X10*3/uL (4.8-10.8)
[2025-03-02 11:22] LABS: Alanine Aminotransferase 22 U/L (0-31); Albumin Level 4.6 g/dL (3.5-5.0); Alkaline Phosphatase 59 U/L (39-117); Anion Gap 14 (12-20); Aspartate Amino Transferase 20 U/L (5-31); Bilirubin Total 0.4 mg/dL (0.0-1.0); Blood Urea Nitrogen 17 mg/dL (9-16); Calcium 10.2 mg/dL (8.4-10.2); Carbon Dioxide 23 mmol/L (22-29); Chloride 107 mmol/L (96-108); Cholesterol 226 mg/dL (<200); Estimated Glomerular Filt Rate > 60; Glucose Fasting 100 mg/dL (60-99); HDL Cholesterol 59 mg/dL (>40); LDL Cholesterol Calculated 143 mg/dL (<100); Potassium 3.7 mmol/L (3.3-5.1); Sodium 140 mmol/L (135-145); TSH reflex Free T4 2.53 uIU/mL (0.32-4.0); Total Protein 7.5 g/dL (6.5-8.0); Triglycerides 121 mg/dL (<150)
[2025-03-02 11:23] LABS: Syphilis Screen Nonreactive (Nonreactive)
[2025-03-02 11:24] LABS: HBS Num1 23.18 mIU/mL (0-7.99); HBc Num1 0.07 S/CO (0.00-0.79); HBsAGNum1 0.23 S/CO (0.00-0.99); HIV AB/AG Nonreactive (Nonreactive); HIV Num 1 0.06 S/CO (0.00-0.99); Hepatitis A Antibody IgM 0.14 Index (0-0.79); Hepatitis B Core Antibody Nonreactive (Nonreactive); Hepatitis B Surface Antigen Negative (Negative); ~HepC Num1 0.07 S/CO (0.00-0.79); ~Hepatitis A Antibody IgM Nonreactive (Nonreactive); ~Hepatitis B Surface Antibody REACTIVE (Nonreactive); ~Hepatitis C Antibody Nonreactive (Nonreactive)
[2025-03-03 14:53] LABS: Herpes Simplex Type 2 IgG <0.90 index; Mumps Virus IgG Antibody <9.00 AU/mL; Rubella IgG Antibody 1.86 Index
[2025-03-04 22:47] LABS: TS Negative Control Passed; TS Panel A 0; TS Panel B 4; TS Positive Control Passed; TSpotTB Negative (Negative)
== END 2025-03-02 07:59 | disposition home or self-care (01) ==
LOC: HO.HMGCLDS 07:58
PROVIDERS: PCP Nurse Practitioner Family; Visit Provider Nurse Practitioner Family
DX: Z00.00 Encounter for general adult medical examination without abnormal findings (principal); Z11.3 Encounter for screening for infections with a predominantly sexual mode of transmission; E66.01 Morbid (severe) obesity due to excess calories; Z68.41 Body mass index [BMI] 40.0-44.9, adult; M25.562 Pain in left knee; M25.561 Pain in right knee; M79.672 Pain in left foot; M79.671 Pain in right foot; Z28.39 Other underimmunization status
CPT/HCPCS: 36415; 80053; 80061; 81003; 84443; 85025; 86481; 86695; 86696; 86704; 86706; 86709; 86735; 86762; 86765; 86780; 86787; 86803; 87340; 87389; 96127; 99395

== ENCOUNTER 2025-03-02 07:58 | Outpatient (AMB) | payer OTHER, SELFPAY ==
--- OUTSIDE RECORDS SUMMARY | 2025-03-02 08:03 | XMS_ITS | Clinical Summary ---
Author Organization [facility] Address [address] [place] [address] Care Team Providers Care Merchandise Team Manager Name Role Phone Jesse Pa Primary Care Provider [phone] Allergies Active Allergy Reactions Criticality Noted Date [...] age to complete this topic Care Teams Merchandise Team Manager Relationship Specialty Start Date End Date Jesse Pa: [phone] [address] [facility] [place] [address] PCP - General Family Medicine 03/15/22
--- OUTSIDE RECORDS SUMMARY | 2025-03-02 08:03 | XMS_ITS | Clinical Summary ---
Author Organization [facility] Address [address] [place] [phone] Phone Care Team Providers Care Cotton Cleaner Name Role Phone Jesse Pa NP Primary Care Provider [phone] Allergies Active Allergy Reactions Criticality Noted Date Comments Cat Dander 09/19/2015 Runny nose , watery eye's Dog Dander 09/19/2015 Hives, runny nose , watery , swelling in the eye's Latex 07/09/2013 Other Reaction(s): Rash/Dermatitis Mold 09/19/2015 Runny nose , watery eye's Medications albuterol HFA (PROAIR HFA ; PROVENTIL HFA ; VENTOLIN HFA) 90 mcg/actuation inhaler Inhale 2 puffs by mouth if needed. 09/19/2015 Active buPROPion XL (WELLBUTRIN XL) 150 mg 24 hr tabletIndication s:Class 3 severe obesity due to excess calories with body mass index (BMI) of 40.0 to 44.9 in adult, unspecified whether serious comorbidity present (CMS/HCC V24, CMS/HCC V28) Take 1 tablet (150 mg total) by mouth 1 (one) time each day. Do not crush, chew, or split. 30 each 2 02/08/2025 05/09/20 25 Active naltrexone (DEPADE) 50 mg tabletIndication s:Class 3 severe obesity due to excess calories with body mass index (BMI) of 40.0 to 44.9 in adult, unspecified whether serious comorbidity present ([facility] V24, [facility] V28) Take 0.5 tablets (25 mg total) by mouth 1 (one) time each day. 15 each 2 02/08/2025 05/09/20 25 Active Active Problems Problem Noted Date Diagnosed Date Goiter 07/31/2015 Iron deficiency anemia 07/31/2015 DVT (deep vein thrombosis) in 02/03/20 14 Asthma 12/23/2013 Obesity 12/23/2013 Abdominal pain 04/23/2013 Overview (09/29/2024): 04/08-Borderline size of the spleen. Suggestion of the left ovarian cyst IMO Update Fall 2015 Encounters Date Type Department Care Team Description 02/08/2025 1:15 PM EDT Office Visit Bariatric Surgery - [address] [place] [address] Estuardo Najera MD Class 3 severe obesity due to excess calories with body mass index (BMI) of 40.0 to 44.9 in adult, unspecified whether serious comorbidity present ([facility] V24, [facility] V28) (Primary Dx) from Last 3 Months Immunizations Name Administration [...] Sign Reading Time Taken Comments Blood Pressure 113/79 02/08/2025 1:33 PM EDT Pulse 83 02/08/2025 1:33 PM EDT Temperature 36.6 ??C (97.8 ??F) 02/08/2025 1:33 PM ED T Respiratory Rate - - Oxygen Saturation - - Inhaled Oxygen Concentration - - Weight 119 kg (263 lb) 02/08/2025 1:33 PM EDT Height 165.1 cm (5' 5 ) 02/08/2025 1:33 PM EDT Body Mass Index 43.77 02/08/2025 1:33 PM EDT Plan of Treatment Upcoming Encounters Date Type Department Care Team (Late st Contact Info) Description 06/21/2025 1:45 PM EDT Office Visit Bariatric Surgery - [place] [address] [facility] [address] [place] [phone] Estuardo Najera MD [address] [address] Health Maintenance Due Date Last Done Comments [...] of Health Screening 09/25/2022 COVID-19 Vaccine ( - season) 2024 DTaP,Tdap,and Td Vaccines (4 - Td or Tdap) 07/13/2024 07/13/2014, 04/28/2013, 07/03/2012 Influenza Vaccine (Season Ended) 2025 08/02/2014, 12/23/2013, 12/23/2013, Additional history exists HIV Screening Completed 07/12/2015 Hepatitis C Screening [...] age to complete this topic Meningococcal B Vaccine Aged Out No l onger eligible based on patient's age to complete [...] Health Maintenance Results * HIV Screening (07/12/2015) Pathologist [facility] HIV Screening abstracted [facility] Provider HEALTH MAINTENANCE Final Result * Hepatitis C Screening (07/12/2015) Pathologist [facility] Hepatitis C Screening abstracted [facility] Provider HEALTH MAINTENANCE Final Result * (ABNORMAL) Lipid panel (02/22/2015) Pathologist [facility] LDL/HDL Ratio 3 0 - 4 Triglycerides 83 0 - 150 mg/dL Cholesterol 189 0 - 200 mg/dL HDL 61 >=40 mg/dL LDL Cholesterol 111(A) 0 - 100 mg/dL Blood Venous blood specimen / Unknown [facility] Provider LAB BLOOD ORDERABLES Diane l Result from Last 3 Months or Most Recently Relevant to Health Maintenance Insurance [facility] [employer] Care Teams Cotton Cleaner Relationship Specialty Start Date End Date Jesse Pa NP [address] [place], [place] PCP - General 03/15/22
--- NOTE | 2025-03-02 08:10 | A.OFFPC_ITS ---
Vital Signs 03/02/25 08:12 Height 5 ft 5 in Weight 264 lb BMI 43.9 BP 118/78 Blood Pressure Location Lt brachial Position Sitting Pulse 65 Pulse Source Pulse Oximeter Temp 98.1 F Temp Source Oral Pulse Oximetry (%) 98 Oxygen Delivery Method Room Air Intake Visit Reasons: Annual PE Allergies latex Allergy (Verified 03/02/25 08:45) rash ondansetron [From Zofran] Allergy (Verified 03/02/25 08:45) Nausea Medication List - Last Reconciled 03/02/25 by MIRNA KirkpatrickP- albuterol sulfate 90 mcg/actuation (Ventolin HFA) 2 puffs inhalation QID PRN Tobacco use date assessed: 03/02/25 Dental Screening Dental Screen Date: 03/02/25 Did you have a dental visit in the last 12 months?: Yes Did you have a dental problem in the last 6 months where you did not have access to dental care?: No Was dental information given to patient?: Patient has dentist HPI Annual PE HPI Details History of Present Illness The patient is a 34-year-old female presenting for a physical examination and laboratory workup. 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 The patient weight, especially in the lower extremities, reporting this affects her mobility and comfort. She requests an STD screen, despite denying current symptoms indicative of an STD. Additionally, she is preparing to enroll in [employer] school and requires updated immunizations and titers. 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 - Education: Planning to enroll in [employer] s chool - Physical Activity: Sedentary occupatio ns, prolonged standing Review of Systems - Musculoskeletal: Reports bilateral kne e pain, bilateral heel pain - Genitourinary: Denies urinary issues - Gastrointestinal: Denies constipation, diarrhea, or stool changes - Respiratory: Denies shortness of breat h -denies any si or hi Physical Exam General: Cooperative, healthy appearing, comfortable, no acute distress and well developed, morbidly obese Orientation: Patient oriented x3 Limitations: No limitations Head: Normal to inspection Ears: Hearing grossly normal bilaterally Nose: Normal external nose present Face and sinus: Normal facial exam Eyes: Appearance normal, both eyes and all related structures Neck: Normal visual inspection and Yes full ROM Respiratory: Normal respiratory effort and able to speak in complete sentences. Clear to auscultation bilaterally Cardiovascular: Regular rate and rhythm. Normal S1 and S2 GI: Normal to inspection. Soft to palpation and nontender Skin: No rashes or lesions noted Neuro: Patient oriented x3 Extremities: Heavier set, especially in the bilateral extremities, hips, and thighs. Reports ongoing knee pain and mostly heel pain, Achilles pain region, bilaterally. Normal to inspection Results Plan The patient?s plan centers on her weight management and associated musculoskeletal issues. I will request X-rays to evaluate her knee and heel pain. Additionally, I will conduct an STD screen, fulfilling her request for disease prevention, taught against her self-reported absence of symptoms. As she transitions into [employer] schooling, I will confirm her immunizations and titers are up-to-date to meet educational requirements. Her job-related activity influences her pain, so I recommend measures to alleviate standing-induced discomfort. Discussion Notes I explained the importance of controlling her weight to improve her knee and heel pain and how it affects her overall health. We discussed obtaining X-rays to evaluate possible joint issues. For her STD screening request, I advised the purpose and importance of regular screenings, despite her current absence of symptoms. In terms of immunizations and titers, I outlined the necessary updates she must complete before starting her [employer] school and noted the importance of maintaining current vaccinations. I encouraged her to engage with her current care team at the obesity clinic for ongoing support. Patient Instructions - Obtain X-rays for your knees and heels as scheduled. - Complete the lab work for STD screenin g. - Ensure all immunizations and titers ar e up to date for [employer] school. - Continue attending the obesity clinic for weight management. - Rest your feet and elevate them when p ossible to alleviate pain from standing. [facility] Medical History Patella-femoral syndrome Family hx-breast malignancy Fibromyalgia Anemia Asthma DVT (deep vein thrombosis) in Surgical History History of cosmetic plastic surgery Family History Father No problems noted. Paternal Grandfather Diabetes Paternal Grandmother Diabetes Mother Asthma Paternal Aunt Breast cancer Other Family history of arthritis Social History Household Members: Children [facility] Are you a primary daycare manager to a significant other at home: No Do you presently have visiting nurse or other home services: No Alcohol intake: current Alcohol intake frequency: holidays/special occasions only Alcohol type: wine Patient Tobacco Use Status: Current someday Tobacco user Cigarettes Per Day: 2 Years Smoked: since 15 years old e-Cigarette/Vaping Use: Never Used Second Hand Smoke Exposure: No Substance Use Type: Marijuana service: No Current occupational status: employed Current occupation: [employer] Current occupational exposures/hazards: No Cognitive needs: No Hearing needs: No Vision needs: No Female Reproductive History Menstrual Age of Menarche: 13 Questionnaire PHQ-9 Over the last 2 weeks, how often have you been bothered by any of the following problems? 1. Little interest or pleasure in doing things: not at all 2. Feeling down, depressed, or hopeless: not at all 3. Trouble falling or staying asleep, or sleeping too much: several days 4. Feeling tired or having little energy: several days 5. Poor appetite or overeating: not at all 6. Feeling bad about yourself - or that you are a failure or have let yourself or your family down: not at all 7. Trouble concentrating on things, such as reading the newspaper or watching television: not at all 8. Moving or speaking so slowly that other people could have noticed. Or the opposite - being so fidgety or restless that you have been moving around a lot more than usual: not at all 9. Thoughts that you would be better off or of hurting yourself in some way: not at all Total score: 2 Depression Screening Interpretation: Negative Depression Screening Done: Yes 54803 - PHQ-9 Billing: Yes Source: Developed by Drs. Linden Steinberg, Deanne Sneed, Tato Mendenhall and colleagues, with an educational chris from [employer]. Thrive Questionnaire Date Thrive assessed: 03/02/25 I am a: Patient What is your living situation today?: I have a steady place to live Within the past 12 months, did the food you bought not last and you didn't have the money to get more?: Never true Within the past 12 months, did you worry whether your food would run out before you got money to buy more?: Never true Do you have trouble paying for medicines?: No Do you have trouble getting transportation to medical appointments?: No Do you have trouble paying your heating and electricity bill?: No Do you have trouble taking care of your child, family member or friend?: No Do you have trouble with day-to-day activities such as bathing, preparing meals, shopping, managing finances, etc.?: No Are you currently unemployed and looking for a job?: No Are you interested in more education?: I choose not to answer this question Please select the resources that you would like help with: None Currently or been in a relationship where the following occur: No concerns reported THRIVE Score: 0 AUDIT C Alcohol Use Questionnaire (AUDIT-C) 1. How often do you have a drink containing alcohol?: 2-4 times a month 2. How many drinks containing alcohol do you have on a typical day when you are drinking?: 1 or 2 3. How often do you have six or more drinks on one occasion?: Never Total Score: 2 Score Reviewed/Action Taken: Yes BILL-7 AMB Questionnaire BILL-7 Date BILL - 7 assessed: 03/02/25 Feeling nervous, anxious, or on edge: 0 = Not at all Not being able to stop or control worryin = Not at all Worrying too much about different things: 1 = Several days Trouble relaxin = Several days Being so restless that it is hard to sit still: 0 = Not at all Becoming easily annoyed or irritable: 1 = Several days Feeling afraid as if something awful might happen: 0 = Not at all Total BILL-7 score (0-4 normal; 5-9 mild; 10-14 moderate; 15-21 severe): 3 Source: Developed by Drs. Linden Steinberg, Deanne Sneed, Tato Mendenhall and colleagues, with an educational chris from [employer] BILL-7 Assessment Billing BILL-7 Assessment Tool: BILL-7 Assessment 22493 Physical exam (Primary Care) Vital Signs: Last Vital Signs Temp 98.1 F 03/02/25 08:12 Pulse 65 03/02/25 08:12 BP 118/78 03/02/25 08:12 Pulse Ox 98 03/02/25 08:12 Oxygen Delivery Method Room Air 03/02/25 08:12 BMI result Body Mass Index 43.9 Tobacco/Smoking Status: Tobacco use Status Tobacco use date assessed 03/02/25 03/02/25 08:16 Patient Tobacco Use Status Current someday Tobacco 03/02/25 08:12 e-Cigarette/Vaping Use Never Used 03/02/25 08:12 PHQ-9: PHQ-9 Score PHQ-9: Total score 2 03/02/25 08:16 Depression Screening Interpretation: Negative Thrive Assessment: Date of Thrive Assessment Date Thrive assessed 03/02/25 03/02/25 08:16 Currently or been in a relationship where the following occur: No concerns reported Coding Level of Care Code Est Pt Prev Care 18-39y(32127) Diagnoses Physical exam Z00. Immunizations incomplete Z.39 Screening for STD (sexually transmitted disease) Z11.3 Knee pain M25.569 Additional Codes BILL-7 Assessment Billing - BILL-7 Assessment Tool: BILL-7 Assessment 32777 ([id number]) PHQ-9 - 54819 - PHQ-9 Billing: Yes ([id number]) Assessment & Plan Assessment & Plan (1) Physical exam: Code(s): Z00.00 - Encounter for general adult medical examination without abnormal findings Category: Medical (2) Immunizations incomplete: Code(s): Z28.39 - Other underimmunization status Category: Medical (3) Screening for STD (sexually transmitted disease): Code(s): Z11.3 - Encounter for screening for infections with a predominantly sexual mode of transmission Category: Medical (4) Knee pain: Code(s): M25.569 - Pain in unspecified knee Category: Medical Plan . Orders: Orders Comprehensive [place]. Panel Fast Today Z00.00 - Encounter for general adult medical examination without abnormal findings UA CC w/rflx Micro + Cult Today Z00.00 - Encounter for general adult medical examination without abnormal findings Lipid Panel Today Z00.00 - Encounter for general adult medical examination without abnormal findings T Spot TB Today Z28.39 - Other underimmunization status Hepatitis A,B,C Profile Today Z28.39 - Other underimmunization status CT NG by PCR Today Z11.3 - Encounter for screening for infections with a predominantly sexual mode of transmission Syphilis Screen Today Z11.3 - Encounter for screening for infections with a predominantly sexual mode of transmission HIV Ab/Ag Today Z11.3 - Encounter for screening for infections with a predominantly sexual mode of transmission XR Knee Dillon 3V Today M25.569 - Pain in unspecified knee Complete Blood Count Auto Diff Today Z00.00 - Encounter for general adult medical examination without abnormal findings TSH reflex Free T4 Today Z00.00 - Encounter for general adult medical examination without abnormal findings Varicella IgG Antibody Today Z28.39 - Other underimmunization status MMR IgG Measles Mumps Rubella Today Z28.39 - Other underimmunization status Herpes Simplex Virus Ab IgG Today Z11.3 - Encounter for screening for infections with a predominantly sexual mode of transmission XR Foot Dillon 2V Today M79.671 - Pain in right foot, M79.672 - Pain in left foot
[2025-03-02 08:12] VITALS: BP 118/78; PULSE 65; TEMP 36.7; O2SAT 98; BMI 43.9
== END 2025-03-02 09:00 | disposition home or self-care (01) ==
LOC: HO.HMCC 07:59
PROVIDERS: PCP Nurse Practitioner Family; Visit Provider Nurse Practitioner Family
DX: Z00.00 Encounter for general adult medical examination without abnormal findings (principal); Z28.39 Other underimmunization status; Z11.3 Encounter for screening for infections with a predominantly sexual mode of transmission; M25.569 Pain in unspecified knee

== ENCOUNTER 2025-03-07 12:14 | Outpatient (REF) | payer OTHER, SELFPAY ==
--- NOTE | ~2025-03-07 | XR_ITS ---
XR FOOT DILLON 3V HISTORY: Right foot pain. COMPARISON: None. TECHNIQUE: AP, oblique, and lateral views bilateral feet. FINDINGS: RIGHT FOOT: No fracture, dislocation, or suspicious bone lesion. Joint spaces are normal. Normal plantar arch. Soft tissues appear normal. LEFT FOOT: No fracture, dislocation, or suspicious bone lesion. Joint spaces are normal. Normal plantar arch. Soft tissues appear normal. XR/XR Foot Dillon 3V IMPRESSION: 1. Normal bilateral feet. Electronically signed by: Sanket Silva MD 03/07/2025 03:07 PM EDT
--- NOTE | ~2025-03-07 | XR_ITS ---
XR KNEE DILLON 3V HISTORY: Bilateral knee pain. COMPARISON: 03/09/2024 right knee. TECHNIQUE: AP and lateral views each knee. FINDINGS: RIGHT KNEE: No fracture, dislocation, or suspicious bone lesion. Joint spaces are normal in all 3 compartments. Normal patellar alignment. No abnormal patellar tilt. No evidence of joint effusion. Soft tissues appear normal. LEFT KNEE: No fracture, dislocation, or suspicious bone lesion. Joint spaces are normal in all 3 compartments. Normal patellar alignment. No abnormal patellar tilt. No evidence of joint effusion. Soft tissues appear normal. XR/XR Knee Dillon 1or 2V IMPRESSION: 1. Normal bilateral knees. Electronically signed by: Sanket Silva MD 03/07/2025 03:05 PM EDT
--- OUTSIDE RECORDS SUMMARY | 2025-03-07 12:43 | XMS_ITS | Clinical Summary ---
Author Organization 175 [facility] Address [address] [place] [phone] Phone Care Team Providers Care Chief Drafter Name Role Phone Jesse Pa NP Primary [...] in adult, unspecified whether serious comorbidity present ([facility] V24, [facility] V28) Take 0.5 tablets (25 mg total) [...] PM EDT Office Visit Bariatric Surgery - [address] [place] [address] Estuardo Najera MD Class 3 severe obesity due to excess calories with body mass index (BMI) of 40.0 to 44.9 in adult, unspecified whether serious comorbidity present ([facility] V24, [facility] V28) (Primary Dx) from Last 3 Months [...] PM EDT Office Visit Bariatric Surgery - [place] 175 [facility] [address] [place] [phone] Estuardo Najera MD [address] [address] Health Maintenance Due Date Last Done Comments [...] Maintenance Results * HIV Screening (07/12/2015) Pathologist [facility] HIV Screening abstracted [facility] Provider HEALTH MAINTENANCE Final Result * Hepatitis C Screening (07/12/2015) [facility] Hep[facility] C Screening abstracted [facility] Provider HEALTH MAINTENANCE Final Result * (ABNORMAL) Lipid panel (02/22/2015) Pathologist [facility] LDL/HDL Ratio 3 0 - 4 Triglycerides 83 0 - 150 mg/dL Cholesterol 189 0 - 200 mg/dL HDL 61 >=40 mg/dL LDL Cholesterol 111(A) 0 - 100 mg/dL Blood Venous blood specimen / Unknown [facility] Provider LAB BLOOD ORDERABLES Diane l Result from Last 3 Months or Most Recently Relevant to Health Maintenance Insurance [facility] [place] [address] Care Teams Chief Drafter Relationship Specialty Start Date End Date Jesse Pa NP [address] [place], [place] PCP - General 03/15/22
--- OUTSIDE RECORDS SUMMARY | 2025-03-07 12:43 | XMS_ITS | Clinical Summary ---
Author Organization [facility] Address [address] [place] [address] Care Team Providers Care Clinical Services Consultant Name Role Phone Jesse Pa Primary Care Provider [phone] Allergies Active Allergy Reactions Criticality Noted Date [...] age to complete this topic Care Teams Clinical Services Consultant Relationship Specialty Start Date End Date Jesse Pa: [phone] [address] [facility] [place] [address] PCP - General Family Medicine 03/15/22
== END 2025-03-07 12:15 | disposition home or self-care (01) ==
LOC: HO.HMGCX 12:14
PROVIDERS: PCP Nurse Practitioner Family; Visit Provider Nurse Practitioner Family
DX: M79.671 Pain in right foot (principal); M79.672 Pain in left foot; M25.561 Pain in right knee; M25.562 Pain in left knee
CPT/HCPCS: 73560; 73630

== ENCOUNTER → 2025-03-07 12:17 | Outpatient (BNV) | payer OTHER, SELFPAY | PROVIDERS: PCP Nurse Practitioner Family; Visit Provider Radiology Diagnostic Radiology | DX: M25.561 Pain in right knee (principal); M25.562 Pain in left knee; M79.671 Pain in right foot | CPT/HCPCS: 73560; 73630 ==

== ENCOUNTER 2025-03-09 14:26 | Outpatient (AMB) | payer OTHER, SELFPAY ==
--- OUTSIDE RECORDS SUMMARY | 2025-03-09 14:29 | XMS_ITS | Clinical Summary ---
Author Organization [facility] Address [address] [place] [address] Care Team Providers Care Heel Lift Gouger Name Role Phone Jesse Pa Primary Care Provider [phone] Allergies Active Allergy Reactions Criticality Noted Date [...] age to complete this topic Care Teams Heel Lift Gouger Relationship Specialty Start Date End Date Jesse Pa: [phone] [address] [facility] [place] [address] PCP - General Family Medicine 03/15/22
--- OUTSIDE RECORDS SUMMARY | 2025-03-09 14:29 | XMS_ITS | Clinical Summary ---
Author Organization 175 [facility] Address [address] [place] [phone] Phone Care Team Providers Care Framing Manager Name Role Phone Jesse Pa NP Primary [...] in adult, unspecified whether serious comorbidity present ([facility] V24, [facility] V28) Take 0.5 tablets (25 mg total) [...] PM EDT Office Visit Bariatric Surgery - [address] [place] [address] Estuardo Najera MD Class 3 severe obesity due to excess calories with body mass index (BMI) of 40.0 to 44.9 in adult, unspecified whether serious comorbidity present ([facility] V24, [facility] V28) (Primary Dx) from Last 3 Months [...] PM EDT Office Visit Bariatric Surgery - [place] 175 [facility] [address] [place] [phone] Estuardo Najera MD [address] [address] Health Maintenance Due Date Last Done Comments [...] Maintenance Results * HIV Screening (07/12/2015) Pathologist [facility] HIV Screening abstracted [facility] Provider HEALTH MAINTENANCE Final Result * Hepatitis C Screening (07/12/2015) Pathologist [facility] Hepatitis C Screening abstracted [facility] Provider HEALTH MAINTENANCE Final Result * (ABNORMAL) Lipid panel (02/22/2015) Pathologist [facility] LDL/HDL Ratio 3 0 - 4 Triglycerides 83 0 - 150 mg/dL Cholesterol 189 0 - 200 mg/dL HDL 61 >=40 mg/dL LDL Cholesterol 111(A) 0 - 100 mg/dL Blood Venous blood specimen / Unknown [facility] Provider LAB BLOOD ORDERABLES Diane l Result from Last 3 Months or Most Recently Relevant to Health Maintenance Insurance [facility] Care Teams Framing Manager Relationship Specialty Start Date End Date Jesse Pa NP [address] [place], [place] PCP - General 03/15/22
--- NOTE | 2025-03-09 14:51 | AM.OFFVISNUR ---
Intake Visit Reasons: MMR Allergies latex Allergy (Verified 03/02/25 08:45) rash ondansetron [From Zofran] Allergy (Verified 03/02/25 08:45) Nausea Immunizations M-M-R II (PF) 1,000-12,500 TCID50/0.5 mL subcutaneous solution Performing Provider: MIRIAN Kirkpatrick Performing Location: [facility] Adult [facility] Administered by: Mundo Duron CMA on 03/09/25 15:05 Dose Route Admin Location Dispensed Lot Number Expiration Date [facility] Store Associate 0.5 mL subcut Left Arm 0.5 mL [id number] 12/08/25 3496-6447-79 [employer] D VIS Given Date VIS Provided VIS Publication Date 03/09/25 Single Vaccine 21 Eligibility Eligibility Date Funding Source Not [facility] Eligible 03/09/25 Private Assessment & Plan Assessment & Plan Orders: Orders MMR Immunization Today Z23 - Encounter for immunization Medications: New M-M-R II (PF) (measles,mumps,rubella vacc(PF)) 0.5 mL subcut ONCE 1 ea 0RF NS Z23 - Encounter for immunization Coding
== END 2025-03-09 15:06 | disposition home or self-care (01) ==
LOC: HO.HMCC 14:26
PROVIDERS: PCP Nurse Practitioner Family; Visit Provider Nurse Practitioner Family
DX: Z23 Encounter for immunization (principal)

== ENCOUNTER → 2025-03-09 14:26 | Outpatient (BNVA) | payer OTHER, SELFPAY | PROVIDERS: PCP Nurse Practitioner Family; Visit Provider Nurse Practitioner Family | DX: Z23 Encounter for immunization (principal) | CPT/HCPCS: 90471; 90707 ==

== ENCOUNTER 2025-04-06 09:18 | Outpatient (AMB) | payer OTHER, SELFPAY ==
--- NOTE | 2025-04-06 09:35 | AM.OFFVISNUR ---
Intake Visit Reasons: MMR (second dose) Intake Note: Pt arrived for MMR #2 Allergies latex Allergy (Verified 03/02/25 08:45) rash ondansetron [From Zofran] Allergy (Verified 03/02/25 08:45) Nausea Immunizations M-M-R II (PF) 1,000-12,500 TCID50/0.5 mL subcutaneous solution Performing Provider: MIRIAN Kirkpatrick Performing Location: [facility] Administered by: Archana Potter RN on 04/06/25 09:36 Dose Route Admin Location Dispensed Lot Number Expiration Date [employer] Advisor 0.5 mL subcut Right Arm 0.5 mL [id number] 12/08/25 7312-3300-38 [employer] D VIS Given Date VIS Provided VIS Publication Date 04/06/25 Single Vaccine 24 Eligibility Eligibility Date Funding Source Not [facility] Eligible 04/06/25 Private Assessment & Plan Assessment & Plan Orders: Orders MMR Immunization Today Z23 - Encounter for immunization Medications: New M-M-R II (PF) (measles,mumps,rubella vacc(PF)) 0.5 mL subcut ONCE 1 ea 0RF NS Z23 - Encounter for immunization Coding
== END 2025-04-06 09:50 | disposition home or self-care (01) ==
LOC: HO.HMCC 09:19
PROVIDERS: PCP Nurse Practitioner Family; Visit Provider Nurse Practitioner Family
DX: Z23 Encounter for immunization (principal)

== ENCOUNTER → 2025-04-06 09:18 | Outpatient (BNVA) | payer OTHER, SELFPAY | PROVIDERS: PCP Nurse Practitioner Family; Visit Provider Nurse Practitioner Family | DX: Z23 Encounter for immunization (principal) | CPT/HCPCS: 90471; 90707 ==

== ENCOUNTER → 2025-04-07 06:42 | Outpatient (BNVA) | payer OTHER, SELFPAY | PROVIDERS: PCP Nurse Practitioner Family; Visit Provider Nurse Practitioner Family | DX: Z13.89 Encounter for screening for other disorder (principal) ==

== ENCOUNTER 2025-09-01 09:03 | Outpatient (REF) | payer OTHER, SELFPAY ==
--- NOTE | ~2025-09-01 | XR_ITS ---
EXAMINATION: XR CHEST CLINICAL INFORMATION: R06.02 - Shortness of breath COMPARISON: None available. TECHNIQUE: PA and lateral views FINDINGS: No hyperinflation. No consolidation, pleural effusion or thorax. Cardiomediastinal silhouette size is normal. Mild multilevel spondylosis, thoracic spine. Patient's large body habitus/obesity.. XR/XR chest 2V IMPRESSION: No acute airspace disease. Electronically signed by: Raghav Bajwa MD 09/01/2025 10:14 AM [facility]
[2025-09-01 13:18] LABS: MANUAL DIFF FLAG NO
[2025-09-01 13:24] LABS: Hematocrit 37.3 % (37.0-47.0); Hemoglobin 11.6 g/dl (12.0-16.0); Imm Gran Abs Auto 0.03 X10*3/uL (0.00-0.03); Imm Gran Pct Auto 0.3 % (0.0-0.4); Lymphocytes Absolute Auto 2.4 X10*3/uL (1.2-4.9); Mean Corpuscular HGB Conc 31.1 g/dl (31.0-35.0); Mean Corpuscular Hemoglobin 26.0 pg (27.0-33.0); Mean Corpuscular Volume 83.6 fL (80.0-98.0); NRBC Abs Auto 0.000 X10*3/uL (0.0-0.012); NRBC Pct Auto 0.0 /100WBC (0.0-0.2); Platelet Count 324 X10*3/uL (160-400); Red Blood Count 4.46 X10*6/uL (4.20-5.50); White Blood Count 9.5 X10*3/uL (4.8-10.8)
[2025-09-01 13:49] LABS: Alanine Aminotransferase 24 U/L (0-31); Albumin Level 4.7 g/dL (3.5-5.0); Alkaline Phosphatase 55 U/L (39-117); Anion Gap 11 (12-20); Aspartate Amino Transferase 32 U/L (5-31); Blood Urea Nitrogen 17 mg/dL (9-16); Calcium 9.9 mg/dL (8.4-10.2); Carbon Dioxide 25 mmol/L (22-29); Chloride 109 mmol/L (96-108); Cholesterol 207 mg/dL (<200); Estimated Glomerular Filt Rate > 60; HDL Cholesterol 49 mg/dL (>40); Potassium 4.3 mmol/L (3.3-5.1); Sodium 141 mmol/L (135-145); Total Protein 7.4 g/dL (6.5-8.0); Triglycerides 164 mg/dL (<150)
== END 2025-09-01 09:04 | disposition home or self-care (01) ==
LOC: HO.HMGCX 09:03
PROVIDERS: PCP Nurse Practitioner Family; Visit Provider Nurse Practitioner Family
DX: Z23 Encounter for immunization (principal); R06.02 Shortness of breath; J45.909 Unspecified asthma, uncomplicated; E78.5 Hyperlipidemia, unspecified; E66.01 Morbid (severe) obesity due to excess calories; F17.210 Nicotine dependence, cigarettes, uncomplicated; Z79.899 Other long term (current) drug therapy; Z68.41 Body mass index [BMI] 40.0-44.9, adult
CPT/HCPCS: 36415; 71046; 80053; 80061; 84443; 85025; 90471; 90677; 99212

== ENCOUNTER 2025-09-01 09:03 | Outpatient (AMB) | payer OTHER, SELFPAY ==
[2025-09-01 09:09] VITALS: BP 104/68; PULSE 83; TEMP 37.2; O2SAT 99; BMI 44.3
--- NOTE | 2025-09-01 09:09 | MHC.PC.OV ---
Vital Signs 09/01/25 09:09 Height 5 ft 5 in Weight 266 lb BMI 44.3 BP 104/68 Blood Pressure Location Rt brachial Position Sitting Pulse 83 Pulse Source Pulse Oximeter Temp 98.9 F Pulse Oximetry (%) 99 Oxygen Delivery Method Room Air Intake Visit Reasons: 6m follow up High Reach Operator Required: No Accompanied by: Self / Same As Patient Allergies latex Allergy (Verified 09/01/25 09:12) rash ondansetron (From Zofran) Allergy (Verified 09/01/25 09:12) Nausea Medication List - Last Reconciled 09/01/25 by Jesse Pa [employer]- albuterol sulfate 90 mcg/actuation (Ventolin HFA) 2 puffs inhalation QID PRN Tobacco use date assessed: 09/01/25 Dental Screening Dental Screen Date: 09/01/25 Did you have a dental visit in the last 12 months?: Yes Did you have a dental problem in the last 6 months where you did not have access to dental care?: No Was dental information given to patient?: Patient has dentist HPI 6m follow up HPI Details Chief Complaint Patient reports an increase in shortness of breath. History of Present Illness The patient is a 35-year-old female presenting for a generalized follow-up. She has a history of asthma and morbid obesity. The patient reports a recent increase in shortness of breath. She has an albuterol inhaler but does not use it often. She also reports an allergy to mold and has had recent exposure in her bathroom at home. She is scheduled for a gastric sleeve procedure. Social History - Housing: The patient reports exposure to mold in her bathroom at home. Health Maintenance - The patient is scheduled to undergo gastric sleeve surgery which is expected to help with her breathing. Review of Systems - Respiratory: Reports increased shortness of breath. Denies severe shortness of breath. - Allergic/Immunologic: Reports allergy to mold. -denies any CP, fevers, chills Physical Exam General: Cooperative, healthy appearing, comfortable, no acute distress and well developed, morbidly obese Orientation: Patient oriented x3 Limitations: No limitations Head: Normal to inspection Ears: Hearing grossly normal bilaterally Nose: Normal external nose present Face and sinus: Normal facial exam Eyes: Appearance normal, both eyes and all related structures Neck: Normal visual inspection and Yes full ROM Respiratory: Normal respiratory effort and able to speak in complete sentences. Clear to auscultation bilaterally. Cardiovascular: Regular rate and rhythm. Normal S1 and S2 GI: Normal to inspection. Soft to palpation and nontender Skin: No rashes or lesions noted Neuro: Patient oriented x3 Extremities: Normal to inspection Results Plan 1. Asthma The patient reports increased shortness of breath, which may be related to her history of asthma and recent mold exposure at home. To further evaluate her respiratory status, pulmonary function tests (PFTs) and a chest x-ray will be ordered. 2. Morbid Obesity The patient's morbid obesity is a likely contributor to her breathing difficulties. It was noted that she is proceeding with a gastric sleeve surgery, which is anticipated to improve her respiratory function. Discussion Notes I discussed the plan to investigate her increased shortness of breath. I advised that we will obtain a chest x-ray and pulmonary function testing. We acknowledged her upcoming gastric sleeve surgery should help her breathing. Patient Instructions - We will schedule you for a chest x-ray and some breathing tests (PFTs) to check your lungs because of your increased shortness of breath. - Remember to use your albuterol inhaler as needed for your asthma. 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 - Your exposure to mold at home could be making your asthma symptoms worse. [facility] Medical History (Updated 09/01/25 @ 09:31 by MIRIAN Kirkpatrick) Patella-femoral syndrome Family hx-breast malignancy Fibromyalgia Anemia Asthma DVT (deep vein thrombosis) in Surgical History History of cosmetic plastic surgery Family History Father No problems noted. Paternal Grandfather Diabetes Paternal Grandmother Diabetes Mother Asthma Paternal Aunt Breast cancer Other Family history of arthritis Social History Household Members: Children Housing: Condominium Are you a primary care attendant to a significant other at home: No Do you presently have visiting nurse or other home services: No Alcohol intake: current Alcohol intake frequency: holidays/special occasions only Alcohol type: wine Patient Tobacco Use Status: Current someday Tobacco user Cigarettes Per Day: 2 Years Smoked: since 15 years old e-Cigarette/Vaping Use: Never Used Second Hand Smoke Exposure: No Substance Use Type: Marijuana service: No Current occupational status: employed Current occupation: [employer] Current occupational exposures/hazards: No Cognitive needs: No Hearing needs: No Vision needs: No Female Reproductive History Menstrual Age of Menarche: 13 Questionnaire PHQ-9 Over the last 2 weeks, how often have you been bothered by any of the following problems? 1. Little interest or pleasure in doing things: not at all 2. Feeling down, depressed, or hopeless: not at all 3. Trouble falling or staying asleep, or sleeping too much: several days 4. Feeling tired or having little energy: several days 5. Poor appetite or overeating: not at all 6. Feeling bad about yourself - or that you are a failure or have let yourself or your family down: not at all 7. Trouble concentrating on things, such as reading the newspaper or watching television: not at all 8. Moving or speaking so slowly that other people could have noticed. Or the opposite - being so fidgety or restless that you have been moving around a lot more than usual: not at all 9. Thoughts that you would be better off or of hurting yourself in some way: not at all Total score: 2 Depression Screening Interpretation: Negative Depression Screening Done: Yes 50630 - PHQ-9 Billing: Patient declined-do not bill Source: Developed by Drs. Linden Steinberg, Deanne Sneed, Tato Mendenhall and colleagues, with an educational chris from [employer]. Thrive Questionnaire Date Thrive assessed: 03/02/25 I am a: Patient What is your living situation today?: I have a steady place to live Within the past 12 months, did the food you bought not last and you didn't have the money to get more?: Never true Within the past 12 months, did you worry whether your food would run out before you got money to buy more?: Never true Do you have trouble paying for medicines?: No Do you have trouble getting transportation to medical appointments?: No Do you have trouble paying your heating and electricity bill?: No Do you have trouble taking care of your child, family member or friend?: No Do you have trouble with day-to-day activities such as bathing, preparing meals, shopping, managing finances, etc.?: No Are you currently unemployed and looking for a job?: No Are you interested in more education?: I choose not to answer this question Please select the resources that you would like help with: None Currently or been in a relationship where the following occur: No concerns reported THRIVE Score: 0 BILL-7 AMB Questionnaire BILL-7 Date BILL - 7 assessed: 03/02/25 Source: Developed by Drs. Linden Steinberg, Deanne Sneed, Tato Mendenhall and colleagues, with an educational chris from [employer]. Physical exam (Primary Care) Vital Signs: Last Vital Signs Temp 98.9 F 09/01/25 09:09 Pulse 83 09/01/25 09:09 BP 104/68 09/01/25 09:09 Pulse Ox 99 09/01/25 09:09 Oxygen Delivery Method Room Air 09/01/25 09:09 BMI result Body Mass Index 44.3 Tobacco/Smoking Status: Tobacco use Status Tobacco use date assessed 09/01/25 09/01/25 09:16 Patient Tobacco Use Status Current someday Tobacco 09/01/25 09:16 e-Cigarette/Vaping Use Never Used 09/01/25 09:16 PHQ-9: PHQ-9 Score PHQ-9: Total score 2 09/01/25 09:28 Depression Screening Interpretation: Negative Thrive Assessment: Date of Thrive Assessment Date Thrive assessed 03/02/25 09/01/25 09:16 Currently or been in a relationship where the following occur: No concerns reported Coding Level of Care Code Est Pt Level 3 (26052) Diagnoses Dyslipidemia E78.5 Morbid obesity E66.01 Asthma J45.909 SOB (shortness of breath) R06.02 Assessment & Plan Assessment & Plan (1) Dyslipidemia: Code(s): E78.5 - Hyperlipidemia, unspecified Category: Medical (2) Morbid obesity: Code(s): E66.01 - Morbid (severe) obesity due to excess calories Category: Medical (3) Asthma: Code(s): J45.909 - Unspecified asthma, uncomplicated Category: Medical (4) SOB (shortness of breath): Code(s): R06.02 - Shortness of breath Category: Medical Plan . Orders: Orders Complete Blood Count Auto Diff Today E78.5 - Hyperlipidemia, unspecified TSH reflex Free T4 Today E78.5 - Hyperlipidemia, unspecified UA CC w/rflx Micro + Cult Today E78.5 - Hyperlipidemia, unspecified Lipid Panel Today E78.5 - Hyperlipidemia, unspecified PFT pulmonary function test Today J45.909 - Unspecified asthma, uncomplicated, R06.02 - Shortness of breath Comprehensive [place]. Panel Fast Today E78.5 - Hyperlipidemia, unspecified XR chest 2V Today J45.909 - Unspecified asthma, uncomplicated, R06.02 - Shortness of breath Pneumococcal 20 Immunization Today Z23 - Encounter for immunization Medications: New pneumoc 20-galen conj-dip cr(PF) 0.5 mL IM ONCE 0.5 mL 0RF Z23 - Encounter for immunization
--- OUTSIDE RECORDS SUMMARY | 2025-09-01 09:48 | XMS_ITS ---
Author Name [facility] Organization Unknown Results Test Name/Text Value Interpretation Date Range Source MONOCYTES NFR BLD AUTO 8.0 % Normal 03/31/2024 2 - 12 [facility] WBC NO. BLD AUTO 6.8 K/uL Normal 03/31/2024 4 - 10.5 [facility] IMMATURE GRANULOCYTE, ABSOLUTE 0.03 k/uL Normal 03/31/2024 - 0.1 [facility] RBC NO. BLD AUTO 4.48 M/uL Normal 03/31/2024 4.2 - 5.4 [facility] HCT VFR BLD AUTO 38.3 % Normal 03/31/2024 37 - 47 [facility] LYMPHOCYTES NFR BLD AUTO 24.9 % Normal 03/31/2024 20 - 48 [facility] MCV RBC AUTO 85.5 fL Normal 03/31/2024 78 - 100 [facility] BASOPHILS NFR BLD AUTO 0.7 % Normal 03/31/2024 0 - 2 [facility] RDW RBC AUTO RTO 14.0 % Normal 03/31/2024 12.1 - 16.2 [facility] BASOPHILS IN BLOOD BY AUTOMATED COUNT 0.1 K/uL Normal 03/31/2024 0 - 0.2 [facility] PLATELET NO. BLD AUTO 222.0 K/uL Normal 03/31/2024 150 - 450 [facility] EOSINOPHIL NFR BLD AUTO 3.0 % Normal 03/31/2024 0 - 6 [facility] MCH RBC QN AUTO 28.6 pg Normal 03/31/2024 25 - 33 [facility] PMV BLD AUTO 10.5 fL Normal 03/31/2024 7.4 - 11.4 [facility] NEUTROPHILS NO. BLD AUTO 4.3 K/uL Normal 03/31/2024 1.8 - 7.8 [facility] HGB BLD MCNC 12.8 g/dL Normal 03/31/2024 12.5 - [facility] NUCLE[facility] 0.0 % Normal 03/31/2024 0 - 1 [facility] EOSINOPHIL NO. BLD AUTO 0.2 K/uL Normal 03/31/2024 0 - 0.5 [facility] LYMPHOCYTES NO. BLD AUTO 1.7 K/uL Normal 03/31/2024 1 - 3.2 [facility] NEUTROPHILS NFR BLD AUTO 63.0 % Normal 03/31/2024 44 - 74 [facility] MCHC RBC AUTO MCNC 33.4 g/dL Normal 03/31/2024 32 - [facility] MONOCYTES NO. BLD AUTO 0.5 K/uL Normal 03/31/2024 0 - 0.8 [facility] IMMATURE GRANULOCYTE, PERCENT 0.4 % Normal 03/31/2024 0 - 1 [facility] CALCIUM SERPL MCNC 9.7 mg/dL Normal 03/31/2024 8.4 - 10.2 [facility] POTASSIUM SERPL SCNC 4.2 mmol/L Normal 03/31/2024 3.5 - 5.1 [facility] BUN SERPL MCNC 14.0 mg/dL Normal 03/31/2024 7 - 17 [facility] GLUCOSE SERPL MCNC 98.0 mg/dL Normal 03/31/2024 70 - 199 [facility] HCO3 SER SCNC 23.0 mmol/L Below low normal 03/31/2024 24 - 3 2 [facility] SODIUM SERPL SCNC 137.0 mmol/L Normal 03/31/2024 135 - 14 5 [facility] ANION GAP SERPL SCNC 7.0 mmol/L Normal 03/31/2024 5 - 14 [facility] CHLORIDE SERPL SCNC 107.0 mmol/L Normal 03/31/2024 98 - 1 07 [facility] Glomerular filtration rate/1.73 sq M. predicted 116.0 Normal 03/31/2024 60 - [facility] CREAT SERPL MCNC 0.7 mg/dL Normal 03/31/2024 0.5 - 1 [facility] CREAT SERPL MCNC 0.7 mg/dL Normal 03/10/2024 0.5 - 1 [facility] HCO3 SER SCNC 26.0 mmol/L Normal 03/10/2024 24 - 32 [facility] ANION GAP SERPL SCNC 7.0 mmol/L Normal 03/10/2024 5 - 14 [facility] CHLORIDE SERPL SCNC 106.0 mmol/L Normal 03/10/2024 98 - 1 07 [facility] GLUCOSE SERPL MCNC 61.0 mg/dL Below low normal 03/10/2024 70 - 199 [facility] BUN SERPL MCNC 12.0 mg/dL Normal 03/10/2024 7 - 17 [facility] POTASSIUM SERPL SCNC 4.3 mmol/L Normal 03/10/2024 3.5 - 5.1 [facility] CALCIUM SERPL MCNC 9.3 mg/dL Normal 03/10/2024 8.4 - 10.2 [facility] Glomerular filtration rate/1.73 sq M. predicted 116.0 Normal 03/10/2024 60 - [facility] SODIUM SERPL SCNC 139.0 mmol/L Normal 03/10/2024 135 - 14 5 [facility] HGB BLD MCNC 12.5 g/dL Normal 03/10/2024 12.5 - 16 [facility] RDW RBC AUTO RTO 14.2 % Normal 03/10/2024 12.1 - 16.2 [facility] NEUTROPHILS NFR BLD AUTO 58.6 % Normal 03/10/2024 44 - 74 [facility] EOSINOPHIL NFR BLD AUTO 2.7 % Normal 03/10/2024 0 - 6 [facility] MONOCYTES NO. BLD AUTO 0.8 K/uL Normal 03/10/2024 0 - 0.8 [facility] EOSINOPHIL NO. BLD AUTO 0.2 K/uL Normal 03/10/2024 0 - 0.5 [facility] MCH RBC QN AUTO 28.7 pg Normal 03/10/2024 25 - 33 [facility] WBC NO. BLD AUTO 8.5 K/uL Normal 03/10/2024 4 - 10.5 [facility] BASOPHILS NFR BLD AUTO 0.7 % Normal 03/10/2024 0 - 2 [facility] PMV BLD AUTO 10.5 fL Normal 03/10/2024 7.4 - [facility] I[facility] GRANULOC[facility]TE, ABSOLUTE 0.04 k/uL Normal 03/10/2024 - 0.1 [facility] MONOCYTES NFR BLD AUTO 9.0 % Normal 03/10/2024 2 - 12 [facility] HCT VFR BLD AUTO 38.7 % Normal 03/10/2024 37 - 47 [facility] BASOPHILS IN BLOOD BY AUTOMATED COUNT 0.1 K/uL Normal 03/10/2024 0 - 0.2 [facility] MCHC RBC AUTO MCNC 32.3 g/dL Normal 03/10/2024 32 - 36 [facility] IMMATURE GRANULOCYTE, PERCENT 0.5 % Normal 03/10/2024 0 - 1 [facility] NUCLEATED RBC 0.0 % Normal 03/10/2024 0 - 1 [facility] PLATELET NO. BLD AUTO 274.0 K/uL Normal 03/10/2024 150 - 450 [facility] RBC NO. BLD AUTO 4.36 M/uL Normal 03/10/2024 4.2 - 5.4 [facility] MCV RBC AUTO 88.8 fL Normal 03/10/2024 78 - [facility] LYMPHOCYTES NFR BLD AUTO 28.5 % Normal 03/10/2024 20 - 48 [facility] NEUTROPHILS NO. BLD AUTO 5.0 K/uL Normal 03/10/2024 1.8 - 7.8 [facility] LYMPHOCYTES NO. BLD AUTO 2.4 K/uL Normal 03/10/2024 1 - 3.2 [facility] WBC number/area UrnS Auto 2.0 /HPF Normal 03/10/2024 0 - 5 [facility] SQUAMOUS NO./AREA URNS LPF 2.0 /LPF Normal 03/10/2024 0 - 5 [facility] RBC number/area UrnS Auto 12.0 /HPF Above high normal 03/10/2024 0 - 3 [facility] Hgb Ur Ql Strip.auto MODERATE Abnormal 03/10/2024 - [facility] Nitrite Ur Ql Strip.auto NEGATIVE Normal 03/10/2024 - [facility] Prot Ur Ql Strip.auto NEGATIVE Normal 03/10/2024 - [facility] Ketones Ur Ql Strip.auto NEGATIVE Normal 03/10/2024 - [facility] Glucose Ur Ql Strip.auto NEGATIVE Normal 03/10/2024 - [facility] Clarity Ur Refract.auto CLEAR Normal 03/10/2024 [facility] Sp Gr Ur Strip.auto >1.030 Above high normal 03/10/2024 1 .005 - 1.03 [facility] Leukocyte esterase Ur Ql Strip.auto NEGATIVE Normal 03/10/2024 - [facility] pH Ur Strip.auto 5.5 Normal 03/10/2024 4.5 - 8 [facility] SPECIMEN SOURCE XXX URINE CLEAN CATCH Normal 03/10/2024 [facility] IMMATURE GRANULOCYTE, PERCENT 0.1 % Normal 12/04/2023 0 - 1 [facility] EOSINOPHIL NO. BLD AUTO 0.2 K/uL Normal 12/04/2023 0 - 0.5 [facility] BASOPHILS IN BLOOD BY AUTOMATED COUNT 0.0 K/uL Normal 12/04/2023 0 - 0.2 [facility] RBC NO. BLD AUTO 4.32 M/uL Normal 12/04/2023 4.2 - 5.4 [facility] WBC NO. BLD AUTO 7.4 K/uL Normal 12/04/2023 4 - 10.5 [facility] NEUTROPHILS NFR BLD AUTO 63.3 % Normal 12/04/2023 44 - 74 [facility] BASOPHILS NFR BLD AUTO 0.5 % Normal 12/04/2023 0 - 2 [facility] MONOCYTES NO. BLD AUTO 0.5 K/uL Normal 12/04/2023 0 - 0.8 [facility] LYMPHOCYTES NFR BLD AUTO 27.5 % Normal 12/04/2023 20 - 48 [facility] PMV BLD AUTO 10.7 fL Normal 12/04/2023 7.4 - 11.4 [facility] RDW RBC AUTO RTO 14.0 % Normal 12/04/2023 12.1 - 16.2 [facility] NEUTROPHILS NO. BLD AUTO 4.7 K/uL Normal 12/04/2023 1.8 - 7.8 [facility] PLATELET NO. BLD AUTO 202.0 K/uL Normal 12/04/2023 150 - 450 [facility] MCH RBC QN AUTO 29.4 pg Normal 12/04/2023 25 - 33 [facility] IMMATURE GRANULOCYTE, ABSOLUTE 0.01 k/uL Normal 12/04/2023 - 0.1 [facility] HCT VFR BLD AUTO 39.1 % Normal 12/04/2023 37 - 47 [facility] MONOCYTES NFR BLD AUTO 6.3 % Normal 12/04/2023 2 - 12 [facility] LYMPHOCYTES NO. BLD AUTO 2.0 K/uL Normal 12/04/2023 1 - 3.2 [facility] HGB BLD MCNC 12.7 g/dL Normal 12/04/2023 12.5 - 16 [facility] EOSINOPHIL NFR BLD AUTO 2.3 % Normal 12/04/2023 0 - 6 [facility] MCHC RBC AUTO MCNC 32.5 g/dL Normal 12/04/2023 32 - 36 [facility] MCV RBC AUTO 90.5 fL Normal 12/04/2023 78 - 100 [facility] ANION GAP SERPL SCNC 5.0 mmol/L Normal 12/04/2023 5 - 14 [facility] BUN SERPL MCNC 15.0 mg/dL Normal 12/04/2023 7 - 17 [facility] HCO3 SER SCNC 26.0 mmol/L Normal 12/04/2023 24 - 32 [facility] CALCIUM SERPL MCNC 9.5 mg/dL Normal 12/04/2023 8.4 - 10.2 [facility] SODIUM SERPL SCNC 137.0 mmol/L Normal 12/04/2023 135 - 14 5 [facility] CHLORIDE SERPL SCNC 106.0 mmol/L Normal 12/04/2023 98 - 1 07 [facility] Glomerular filtration rate/1.73 sq M. predicted 116.0 Normal 12/04/2023 60 - [facility] GLUCOSE SERPL MCNC 82.0 mg/dL Normal 12/04/2023 70 - 199 [facility] POTASSIUM SERPL SCNC 4.2 mmol/L Normal 12/04/2023 3.5 - 5.1 [facility] CREAT SERPL MCNC 0.7 mg/dL Normal 12/04/2023 0.5 - 1 [facility] DIMER DDU PPP EIA MCNC 190.0 ng/mL DDU Normal 12/04/2023 - 231 [facility] RBC number/area UrnS Auto 2.0 /HPF Normal 12/04/2023 0 - 3 [facility] WBC number/area UrnS Auto 1.0 /HPF Normal 12/04/2023 0 - 5 [facility] SQUAMOUS NO./AREA URNS LPF 2.0 /LPF Normal 12/04/2023 0 - 5 [facility] Ketones Ur Ql Strip.auto NEGATIVE Normal 12/04/2023 - [facility] Prot Ur Ql Strip.auto NEGATIVE Normal 12/04/2023 - [facility] Glucose Ur Ql Strip.auto NEGATIVE Normal 12/04/2023 - [facility] Hgb Ur Ql Strip.auto TRACE Abnormal 12/04/2023 - [facility] Nitrite Ur Ql Strip.auto NEGATIVE Normal 12/04/2023 - [facility] Clarity Ur Refract.auto CLEAR Normal 12/04/2023 [facility] Leukocyte esterase Ur Ql Strip.auto NEGATIVE Normal 12/04/2023 - [facility] pH Ur Strip.auto 5.0 Normal 12/04/2023 4.5 - 8 [facility] Sp Gr Ur Strip.auto 1.025 Normal 12/04/2023 1.005 - 1 .03 [facility] SPECIMEN SOURCE XXX URINE CLEAN CATCH Normal 12/04/2023 [facility] History of Medication Use Medication Directions Dispensed Refills Start Date End Date [facility] acetaminophen (TYLENOL) tablet 1,000 mg 1,000 mg, oral, Once, On 06/13/25 at 2241, For 1 dose 06/14/2025 06/14/2025 completed naltrexone (DEPADE) 50 mg tablet Take 0.5 tablets (25 mg total) by mouth 1 (one) time each day. 05/14/2025 active buPROPion XL (WELLBUTRIN XL) 150 mg 24 hr tablet Take 1 tablet (150 mg total) by mouth 1 (one) time each day. Do not crush, chew, or split. 02/08/2025 active cephalexin (KEFLEX) 500 MG capsule Take 1 capsule (500 mg total) by mouth 4 (four) times a day for 7 days. 03/31/2024 04/08/2024 active traMADol (ULTRAM) 50 MG tablet Take 50 mg by mouth every 6 (six) hours as needed for pain for up to 8 doses. 03/31/2024 active ketorolac (TORADOL) injection 15 mg 15 mg, Intravenous, Once, On Fri03/31/24 at 1145, For 1 dose 03/10/2024 03/31/2024 completed iopamidol (ISOVUE-370) 76 % injection 0-150 mL 0-150 mL, Intravenous, IMG once as needed, contrast, Starting on Fri03/10/24 at 1349, For 1 dose, Radiology Contrast 03/10/2024 03/10/2024 completed albuterol (PROVENTIL) (2.5 MG/3ML) 0.083% nebulizer solution Inhale 3 mL (2.5 mg total) into the lungs. 11/15/2016 active albuterol HFA (PROAIR HFA ; PROVENTIL HFA ; VENTOLIN HFA) 90 mcg/actuation inhaler Inhale 2 puffs by mouth if needed. 09/19/2015 active Allergies Allergen Reaction Severity Comment Documented Date Source Statu s PINEAPPLE Other Reaction( s): tongue tingling 06/13/2025 [facility] active CAT DANDER Runny nose , wa arnulfo eye's 09/19/2015 [facility] active DOG DANDER Hives, runny no se , watery , swelling in the eye's 09/19/2015 [facility] active MOLD Runny nose , wa arnulfo eye's 09/19/2015 [facility] active LATEX Other Reaction( s): Rash/Dermatitis 07/09/2013 [facility] active Problems Problem Status Onset Date Problem Type Date of Resoluti on Source Pain in left axilla active [facility] Rash active [facility] Abdominal pain active 2013-04-[address] [facility] Laceration of hand, initial encounter active EncounterDiagnosisAct [facility] Obesity active 2013-12-23 ProblemAct [facility] Goiter active 2015-07-31 ProblemAct [facility] Asthma active 2013-12-23 ProblemAct [facility] Finger avulsion, initial encounter active EncounterDiagnosisAct [facility] DVT (deep vein thrombosis) in active 2014-02-02 ProblemAct [facility] Laceration of left hand without foreign body, initial encounter active EncounterDiagnosisAct [facility] Iron deficiency anemia active 2015-07-31 ProblemAct [facility] Immunizations Vaccine Date Source Lot Number Status Tdap Tetanus diptheria acell ular pertussis (Boostrix; Adacel) 7yo and older 06/13/2025 [facility] [id number] completed MMR, measles mumps and rubel la Live (Priorix; M-M-R II) 12mo and older 05/24/2015 [facility] [id number] completed MMR, measles mumps and rubel la Live (Priorix; M-M-R II) 12mo and older [id number] completed Varicella live (Varivax) 12mo and older [id number] Influenza trivalent, 0.5mL, preservative free (Fluarix; FluLaval; Fluzone) ages 6mo and older (Afluria) 3 years and older 12/23/2013 [facility] [id number] completed PPD Test 04/28/2013 [facility] [id number] completed Tdap Tetanus diptheria acell ular pertussis (Boostrix; Adacel) 7yo and older 04/28/2013 [facility] [id number] completed Encounters Encounter Type Encounter Reason Primary Diagnosis Location Date Emergency L thumb lac Laceration witho ut foreign body of left hand, initial encounter [facility] 06/13/2025 Emergency Rash and other nonspecific skin eruption Rash and other nonspecific skin eruption [facility] 03/31/2024 Emergency Unspecified abdomina l pain Unspecified abdominal pain [facility] 03/10/2024 Emergency Pleurodynia Pleurodynia [facility] 2023 Care Team Organization Name Specialty Phone Email Start Date End [facility] te [facility] 06/20/2025 [facility] 06/14/2025 [facility] 12/04/2023 05/10/2025 [facility] 12/04/2023 [facility] 05/2024
--- OUTSIDE RECORDS SUMMARY | 2025-09-01 09:48 | XMS_ITS | Clinical Summary ---
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 Name Role Phone Jesse Pa Primary Care Provider [phone] Allergies Active Allergy Reactions Criticality Noted Date [...] 77 03/31/2024 1:05 PM EDT Temperature 37.1 C (98.8 F) 03/31/2024 1:05 PM EDT Respiratory Rate 16 03/31/2024 1:05 PM EDT [...] or Tdap) 04/28/2023 04/28/2013 Influenza Vaccine (#1) 2025 4, 12/23/2013, 07/04/2012 RSV Ped < 20 months Aged Out No longe r eligible based on patient's age to complete this topic Care Teams Meat Puller Relationship Specialty Start Date End Date Jesse Pa [address] [place] [id number] PCP - General Family Medicine 03/15/22
--- OUTSIDE RECORDS SUMMARY | 2025-09-01 09:48 | XMS_ITS | Clinical Summary ---
Author Organization 175 [facility] Address [address] [place] [phone] Phone Care Team Providers Care Sap Pi Architect Name Role Phone Jesse Pa NP Primary Care Provider Allergies Active Allergy Reactions Criticality Noted Date Comments Cat Dander 09/19/2015 Runny nose , watery eye's Dog Dander 09/19/2015 Hives, runny nose , watery , swelling in the eye's Latex 07/09/2013 Other Reaction(s): Rash/Dermatitis Mold 09/19/2015 Runny nose , watery eye's Pineapple 06/13/2025 Other Reaction(s): tongue tingling Medications albuterol HFA (PROAIR HFA ; PROVENTIL HFA ; VENTOLIN HFA) 90 mcg/actuation inhaler Inhale 2 puffs by mouth if needed. 5 Active buPROPion XL (WELLBUTRIN XL) 150 mg 24 hr tabletIndication s:Class 3 severe obesity due to excess calories with body mass index (BMI) of 40.0 to 44.9 in adult, unspecified whether serious comorbidity present (CMS/HCC V24, CMS/HCC V28) Take 1 tablet (150 mg total) by mouth 1 (one) time each day. Do not crush, chew, or split. 30 each 2 5 Active naltrexone (DEPADE) 50 mg tablet Take 0.5 tablets (25 mg total) by mouth 1 (one) time each day. 5 Active albuterol HFA (PROAIR HFA ; PROVENTIL HFA ; VENTOLIN HFA) 90 mcg/actuation inhaler Inhale 2 puffs by mouth every 6 (six) hours if needed for wheezing or shortness of breath. 6.7 g 5 Active ferrous sulfate 325 mg (65 mg iron) EC tablet Take 1 tablet (325 mg total) by mouth 1 (one) time each day. Do not crush, chew, or split. 30 each 5 09/29/20 25 Active ergocalciferol (VITAMIN D-2) 1,250 mcg (50,000 unit) capsuleIndicatio ns:Vitamin D deficiency Take 1 capsule (50,000 Units total) by mouth 1 (one) time per week for 12 doses. 12 each 5 10/17/20 25 Active Active Problems Problem Noted Date Diagnosed Date Goiter 07/31/2015 Iron deficiency anemia 07/31/2015 DVT (deep vein thrombosis) in 02/03/20 14 Asthma 12/23/2013 Obesity 12/23/2013 Abdominal pain 04/23/2013 Overview (09/29/2024): 04/08-Borderline size of the spleen. Suggestion of the left ovarian cyst IMO Update Fall 2015 Encounters Date Type Department Care Team Description 08/19/2025 12:30 PM EDT Telemedicine Bariatric Surgery [address] [phone] Class 3 severe obesity without serious comorbidity with body mass index (BMI) of 40.0 to 44.9 in adult, unspecified obesity type (CMS/HCC V24, CMS/HCC V28) (Primary Dx) 08/16/2025 4:30 PM EDT Office Visit Bariatric Surgery [address] [phone] Estuardo Najera MD Class 3 severe obesity without serious comorbidity with body mass index (BMI) of 40.0 to 44.9 in adult, unspecified obesity type (CMS/HCC V24, CMS/HCC V28) (Primary Dx) 07/29/2025 9:30 AM EDT Telemedicine Bariatric Surgery - [address] [place] [address] Class 3 severe obesity without serious comorbidity with body mass index (BMI) of 40.0 to 44.9 in adult, unspecified obesity type (CMS/HCC V24, CMS/HCC V28) (Primary Dx) 07/15/2025 1:30 PM EDT Office Visit [facility] - [address] [phone] Brannon Diaz PA COVID-19 (Primary Dx) 07/06/2025 3:00 PM EDT Office Visit Walk-In Clinic - [address] [phone] Brannon Diaz PA Exposure to Streptococcal pharyngitis (Primary Dx); Exposure to COVID-19 virus 06/13/2025 9:23 PM EDT - 06/14/2025 12:07 AM EDT Emergency [facility] [address] [place] [address] Fam Elias DO Laceration of left hand without foreign body, initial encounter (Primary Dx); Finger avulsion, initial encounter; Laceration of hand, initial encounter Discharge Disposition: Home or Self Care from Last 3 Months Immunizations Immunization Administration Dates Next Due Influenza trivalent, 0.5mL, preservative free (Fluarix; FluLaval; Fluzone) ages 6mo and older (Afluria) 3 years and older 12/23/2013 MMR, measles mumps and rubel la Live (Priorix; M-M-R II) 12mo and older 05/24/2015,02/06/2015 PPD Test 04/28/2013 Tdap Tetanus diptheria acell ular pertussis (Boostrix; Adacel) 7yo and older 06/13/2025,04/28/2013 Varicella live (Varivax) 12mo and older 02/07/20 [...] Sign Reading Time Taken Comments Blood Pressure 114/82 08/16/2025 3:48 PM EDT Pulse 73 08/16/2025 3:48 PM EDT Temperature 36.6 C (97.8 F) 08/16/2025 3:48 PM EDT Respiratory Rate 16 06/14/2025 12:02 AM EDT Oxygen Saturation 99% 07/15/2025 1:32 PM EDT Inhaled Oxygen Concentration - - Weight 121 kg (266 lb) 08/19/2025 12:00 PM EDT Height 165.1 cm (5' 5 ) 08/16/2025 3:48 PM EDT Body Mass Index 44.26 08/16/2025 3:48 PM EDT Plan of Treatment Upcoming Encounters Date Type Department Care Team (Late st Contact Info) Description 11/16/2025 2:00 PM EST Nutrition Bariatric Surgery - [address] [phone] Dana Cartwright, RD 175 [facility] [address] [place] [phone] Health Maintenance Due Date Last Done Comments Hepatitis B Vaccines (1 of 3 - 19+ 3-dose series) 2008 Pneumococcal Vaccine: Pediatrics (0 to 5 Years) and At-Risk Patients (6 to 49 Years) (1 of 2 - PCV) 2008 Cervical Cancer Screening: Pap Smear 2010 HPV Vaccines (2 - 3-dose series) 12/22/2012 11/24/2012 Social Influencers of Health Screening 09/25/2022 Depression Screening 10/27/2024 COVID-19 Vaccine ( - season) 2025 Influenza Vaccine (#1) 2025 4, 12/23/2013, 07/04/2012 Cholesterol Screening (Lipid Panel) 07/29/2030 07/29/2025, 02/22/2015 DTaP,Tdap,and Td Vaccines (5 - Td or Tdap) 06/13/2035 06/13/2025, 07/13/2014, 04/28/2013, Additional history exists RSV Immunization Adult Patients (1 - 1-dose 75+ series) 2064 HIV Screening Completed 07/12/2015 Hepatitis C Screening [...] Procedure Name Priority Date/Time Associated Diagnosis Comments CBC WITH AUTO DIFFERENTIAL Routine 07/29/2025 3:43 PM EDT Class 3 severe obesity without serious comorbidity with body mass index (BMI) of 40.0 to 44.9 in adult, unspecified obesity type (CMS/HCC V24, CMS/HCC V28) CBC AND DIFFERENTIAL Routine 07/29/2025 3:43 PM EDT Class 3 severe obesity without serious comorbidity with body mass index (BMI) of 40.0 to 44.9 in adult, unspecified obesity type (CMS/HCC V24, CMS/HCC V28) COMPREHENSIVE METABOLIC PANEL Routine 07/29/2025 3:43 PM EDT Class 3 severe obesity without serious comorbidity with body mass index (BMI) of 40.0 to 44.9 in adult, unspecified obesity type (CMS/HCC V24, CMS/HCC V28) CORTISOL Routine 07/29/2025 3:43 PM EDT Class 3 severe obesity without serious comorbidity with body mass index (BMI) of 40.0 to 44.9 in adult, unspecified obesity type (CMS/HCC V24, CMS/HCC V28) FERRITIN Routine 07/29/2025 3:43 PM EDT Personal history of nutritional deficiency FOLATE Routine 07/29/2025 3:43 PM EDT Personal history of nutritional deficiency HELICOBACTER PYLORI BREATH TEST Routine 07/29/2025 3:43 PM EDT Class 3 severe obesity without serious comorbidity with body mass index (BMI) of 40.0 to 44.9 in adult, unspecified obesity type (CMS/HCC V24, CMS/HCC V28) HEMOGLOBIN A1C Routine 07/29/2025 3:43 PM EDT Class 3 severe obesity without serious comorbidity with body mass index (BMI) of 40.0 to 44.9 in adult, unspecified obesity type (CMS/HCC V24, CMS/HCC V28) IRON AND TIBC Routine 07/29/2025 3:43 PM EDT Personal history of nutritional deficiency LIPID PANEL WITH REFLEX TO DIRECT LDL Routine 07/29/2025 3:43 PM EDT Class 3 severe obesity without serious comorbidity with body mass index (BMI) of 40.0 to 44.9 in adult, unspecified obesity type (CMS/HCC V24, CMS/HCC V28) MAGNESIUM Routine 07/29/2025 3:43 PM EDT Personal history of nutritional deficiency NICOTINE AND COTININE Routine 07/29/2025 3:43 PM EDT Class 3 severe obesity without serious comorbidity with body mass index (BMI) of 40.0 to 44.9 in adult, unspecified obesity type (CMS/HCC V24, CMS/HCC V28) THYROID STIMULATING HORMONE Routine 07/29/2025 3:43 PM EDT Personal history of nutritional deficiency VITAMIN B1 Routine 07/29/2025 3:43 PM EDT Personal history of nutritional deficiency VITAMIN B12 Routine 07/29/2025 3:43 PM EDT Personal history of nutritional deficiency VITAMIN D 25 HYDROXY Routine 07/29/2025 3:43 PM EDT Personal history of nutritional deficiency POC RESPIRATORY SYNCYTIAL VIRUS Routine 07/15/2025 1:47 PM EDT COVID-19 POC RAPID STREP A Routine 07/15/2025 1:4 7 PM EDT COVID-19 POC RAPID [id number], MOLECULAR Routine 07/15/2025 1:46 PM EDT COVID-19 POC RAPID STREP A Routine 07/06/2025 4:2 7 PM EDT Exposure to Streptococcal pharyngitis Exposure to COVID-19 virus POC RAPID [id number], MOLECULAR Routine 07/06/2025 4:27 PM EDT Exposure to Streptococcal pharyngitis Exposure to COVID-19 virus HEPATITIS C SCREENING Routine 07/12/2015 HIV SCREENING Routine 07/12/2015 from Last 3 Months or Most Recently Relevant to Health Maintenance Results * (ABNORMAL) Lipid panel with reflex to direct LDL (07/29/2025 3:43 PM EDT) [facility] Cholesterol 205(H) 0 - 200 mg/dL LAB CHEMISTRY METHOD 07/29/2025 8:22 PM EDT [facility] Triglycerides 115 0 - 150 mg/dL LAB CHEMISTRY METHOD 07/29/2025 8:22 PM EDT [facility] HDL 56 >=40 mg/dL LAB CHEMISTRY METHOD 07/29/2025 8:22 PM EDT [facility] LDL Calculated 126(H) 0 - 100 mg/dL LAB CHEMISTRY METHOD 07/29/2025 8:22 PM EDT [facility] Comment:Estimated LDL Calcul ated using equation: Total cholesterol - HDL cholesterol - (Triglycerides/5) VLDL Cholesterol Joshua 23 mg/dL LAB CHEMISTRY METHOD 07/29/2025 8:22 PM EDT [facility] Non HDL Chol. (LDL+VLDL) 149(H) <145 mg/dL LAB CHEMISTRY METHOD 07/29/2025 8:22 PM EDT [facility] Chol/HDL Ratio 3.7 0.0 - 4.4 LAB CHEMISTRY METHOD 07/29/2025 8:22 PM EDT [facility] Blood Venous blood specimen / Unknown Venipuncture / Unknown 07/29/2025 3:43 PM EDT 07/29/2025 3:43 PM EDT us Estuardo Najera MD LAB BLOOD ORDERABLES Final R esult [facility] [address] [place] [address], * Nicotine and cotinine (07/29/2025 3:43 PM EDT) Nicotine <2.0 <2.0 ng/mL 08/02/2025 6:32 AM EDT [facility] Cotinine <2.0 <2.0 ng/mL 08/02/2025 6:32 AM EDT [facility] Comment: Additional Reference Ranges: Active Tobacco Passive Abstinence User Exposure 2 Weeks and more Nicotine 30 - 50 ng/mL <2 ng/mL <2 ng/mL Cotinine 200 - 800 ng/mL <8 ng/mL <2 ng/mL Reference Ranges from: Clin. Chem.; 48:2963-8617 (2002) Direct any interpretive questions to the toxicology laboratory. This is for medical use only, it is not intended for forensic use. If applicable, any drug confirmation testing reported here was developed and the performance characteristics determined by [facility]. This confirmation testing has not been cleared or approved by the FDA. The laboratory is regulated under CLIA as qualified to perform high-complexity testing. This test is used for patient testing purposes. It should not be regarded as investigational or for research. Test performed at [facility], [address], [place] [address] Stephanie Carter MD, PhD - Surtass Analyst Blood Venous blood specimen / Unknown Venipuncture / Unknown 07/29/2025 3:43 PM EDT 07/29/2025 3:43 PM EDT us Estuardo Najera MD LAB BLOOD ORDERABLES Final R esult [facility] [address] [place] [address] * (ABNORMAL) CBC auto differential (07/29/2025 3:43 PM EDT) [facility] WBC 7.1 4.8 - 10.8 K/mcL LAB HEMETOLOGY METHOD 07/29/2025 6:41 PM EDT [facility] RBC 4.10 3.80 - 4.80 M/mcL LAB HEMETOLOGY METHOD 07/29/2025 6:41 PM EDT [facility] Hemoglobin 11.2(L) 11.5 - 16.0 g/dL LAB HEMETOLOGY METHOD 07/29/2025 6:41 PM EDT [facility] Hematocrit 35.4 35.0 - 47.0 % LAB HEMETOLOGY METHOD 07/29/2025 6:41 PM EDT [facility] MCV 85.7 79.0 - 98.0 FL LAB HEMETOLOGY METHOD 07/29/2025 6:41 PM EDT [facility] MCH 27.1 27.0 - 32.0 pcg LAB HEMETOLOGY METHOD 07/29/2025 6:41 PM [facility] MCHC 31.6(L) 32.0 - 37.0 g/dL LAB HEMETOLOGY METHOD 07/29/2025 6:[facility] RDW 15.9(H) 11.0 - 15.0 % LAB HEMETOLOGY METHOD 07/29/2025 6:41 PM [facility] Platelets 281 130 - 400 K/mcL LAB HEMETOLOGY METHOD 07/29/2025 6:41 PM [facility] MPV 11.1(H) 7.0 - 11.0 FL LAB HEMETOLOGY METHOD 07/29/2025 6:41 PM [facility] NRBC 0.0 <1.0 % LAB HEMETOLOGY METHOD 07/29/2025 6:41 PM [facility] NRBC Absolute 0.00 <0.10 K/mcL LAB HEMETOLOGY METHOD 07/29/2025 6:41 PM [facility] Neutrophils Relative 55.9 % LAB HEMETOLOGY METHOD 07/29/2025 6:41 PM [facility] Lymphocytes Relative 32.1 % LAB HEMETOLOGY METHOD 07/29/2025 6:41 PM [facility] Monocytes Relative 8.9 % LAB HEMETOLOGY METHOD 07/29/2025 6:41 PM [facility] Eosinophils Relative 2.0 % LAB HEMETOLOGY METHOD 07/29/2025 6:41 PM [facility] Basophils Relative 0.8 % LAB HEMETOLOGY METHOD 07/29/2025 6:41 PM [facility] Immature Granulocytes Relative 0.3 % LAB HEMETOLOGY METHOD 07/29/2025 6:41 PM EDT [facility] Neutrophils Absolute 3.95 1.50 - 7.00 K/[facility] LAB HEMETOLOGY METHOD 07/29/2025 6:41 PM EDT [facility] Lymphocytes Absolute 2.27 1.00 - 5.00 K/mcL LAB HEMETOLOGY METHOD 07/29/2025 6:41 PM EDT [facility] Monocytes Absolute 0.63 0.20 - 1.00 K/mcL LAB HEMETOLOGY METHOD 07/29/2025 6:41 PM EDT [facility] Eosinophils Absolute 0.14 0.00 - 0.50 K/[facility] LAB HEMETOLOGY METHOD 07/29/2025 6:41 PM EDT [facility] Basophils Absolute 0.06 0.00 - 0.20 K/mcL LAB HEMETOLOGY METHOD 07/29/2025 6:41 PM EDT [facility] Immature Granulocytes Absolute 0.02 0.00 - 0.03 K/mcL LAB HEMETOLOGY METHOD 07/29/2025 6:41 PM EDT [facility] Blood Venous blood specimen / Unknown Venipuncture / Unknown 07/29/2025 3:43 PM EDT 07/29/2025 3:43 PM EDT us Estuardo Najera MD LAB BLOOD ORDERABLES Final R esult [facility] [address] [place] [address], * (ABNORMAL) Iron and TIBC (07/29/2025 3:43 PM EDT) Iron 33(L) 40 - 150 mcg/dL LAB CHEMISTRY METHOD 07/29/2025 9:08 PM EDT [facility] TIBC 390 250 - 450 mcg/dL LAB CHEMISTRY METHOD 07/29/2025 9:08 PM EDT [facility] Iron Saturation 8(L) 15 - 50 % LAB CHEMISTRY METHOD 07/29/2025 9:08 PM EDT [facility] Blood Venous blood specimen / Unknown Venipuncture / Unknown 07/29/2025 3:43 PM EDT 07/29/2025 3:43 PM EDT Estuardo Najera MD LAB BLOOD ORDERABLES Final R esult Performing Organization Address City/[facility]/ZIP Co de Phone Number [facility] [address] [place] [address], [place] [phone] * Helicobacter pylori breath test (07/29/2025 3:43 PM EDT) H Pylori Breath Test Negative Negative LAB CHEMISTRY METHOD 07/30/2025 8:22 AM EDT [facility] Breath Oral cavity structure / Unknown Non-blood Collection / Unknown 07/29/2025 3:43 PM EDT 07/29/2025 3:43 PM EDT Estuardo Najera MD LAB BODY FLUIDS AND STOOLS O RDERABLES Final Result Performing Organization Address City/[facility]/ZIP Co de Phone Number [facility] [address] [place] [address], [place] [phone] * (ABNORMAL) Vitamin D 25 hydroxy (07/29/2025 3:43 PM EDT) Vit D, 25-Hydroxy 8.0(L) 30.0 - 80.0 ng/mL LAB CHEMISTRY METHOD 07/29/2025 8:02 PM EDT [facility] Blood Venous blood specimen / Unknown Venipuncture / Unknown 07/29/2025 3:43 PM EDT 07/29/2025 3:43 PM EDT Estuardo Najera MD LAB BLOOD ORDERABLES Final R esult Performing Organization Address [facility]/ZIP Co de Phone Number [facility] [address] [place] [address], [place] [phone] * Thyroid stimulating hormone (07/29/2025 3:43 PM EDT) [facility] TSH 2.14 0.40 - 4.00 mcIU/mL LAB CHEMISTRY METHOD 07/29/2025 7:38 PM EDT [facility] Blood Venous blood specimen / Unknown Venipuncture / Unknown 07/29/2025 3:43 PM EDT 07/29/2025 3:43 PM EDT Estuardo Najera MD LAB BLOOD ORDERABLES Final R esult Performing Organization Address [facility] Co de Phone Number [facility] [address] [place] [address], [place] [phone] * Vitamin B1 (07/29/2025 3:43 PM EDT) [facility] Vitamin B1 Whole Blood 58 38 - 122 ug/L 08/03/2025 1:40 PM EDT [facility] Comment: This test was developed and the performance characteristics determined by [facility]. It has not been cleared or approved by the FDA. The laboratory is regulated under CLIA as qualified to perform high-complexity testing. This test is used for patient testing purposes. It should not be regarded as investigational or for research. Test performed at [facility], [address] , [place] [address] Stephanie Carter MD, PhD - Surtass Analyst Blood Venous blood specimen / Unknown Venipuncture / Unknown 07/29/2025 3:43 PM EDT 07/29/2025 3:43 PM EDT Estuardo Najera MD LAB BLOOD ORDERABLES Final R esult [facility] [address] [place] [address] * Magnesium (07/29/2025 3:43 PM EDT) [facility] Magnesium 2.2 1.9 - 2.6 mg/dL LAB CHEMISTRY METHOD 07/29/2025 6:59 PM EDT [facility] Blood Venous blood specimen / Unknown Venipuncture / Unknown 07/29/2025 3:43 PM EDT 07/29/2025 3:43 PM EDT Estuardo Najera MD LAB BLOOD ORDERABLES Final R esult Performing Organization Address City/[facility]/ZIP Co de Phone Number [facility] [address] [place] [address], [place] [phone] * Hemoglobin A1c (07/29/2025 3:43 PM EDT) [facility] Hemoglobin A1C 5.6 <6.5 % LAB CHEMISTRY METHOD 07/29/2025 8:30 PM EDT [facility] Mean Bld Glu Estim. 114 mg/dL LAB CHEMISTRY METHOD 07/29/2025 8:30 PM EDT [facility] Blood Venous blood specimen / Unknown Venipuncture / Unknown 07/29/2025 3:43 PM EDT 07/29/2025 3:43 PM EDT us Estuardo Najera MD LAB BLOOD ORDERABLES Final R esult [facility] [address] [place] [address], [place] [phone] * Folate (07/29/2025 3:43 PM EDT) [facility] Folate 13.4 2.8 - 17.0 ng/ml LAB CHEMISTRY METHOD 07/29/2025 9:19 PM EDT [facility] Blood Venous blood specimen / Unknown Venipuncture / Unknown 07/29/2025 3:43 PM EDT 07/29/2025 3:43 PM EDT us Estuardo Najera MD LAB BLOOD ORDERABLES Final R esult Performing Organization Address City/[facility]/ZIP Co de Phone Number [facility] [address] [place] [address], [place] [phone] * Ferritin (07/29/2025 3:43 PM EDT) Ferritin 8 8 - 252 ng/mL LAB CHEMISTRY METHOD 07/29/2025 8:29 PM EDT [facility] Blood Venous blood specimen / Unknown Venipuncture / Unknown 07/29/2025 3:43 PM EDT 07/29/2025 3:43 PM EDT us Estuardo Najera MD LAB BLOOD ORDERABLES Final R esult Performing Organization Address City/[facility]/ZIP Co de Phone Number [facility] [address] [place] [address], [place] [phone] * Vitamin B12 (07/29/2025 3:43 PM EDT) Vitamin B-12 802 250 - 900 pcg/mL LAB CHEMISTRY METHOD 07/29/2025 8:43 PM EDT [facility] Blood Venous blood specimen / Unknown Venipuncture / Unknown 07/29/2025 3:43 PM EDT 07/29/2025 3:43 PM EDT us Estuardo Najera MD LAB BLOOD ORDERABLES Final R esult [facility] [address] [place] [address], [place] [phone] * Cortisol (07/29/2025 3:43 PM EDT) Cortisol 7.9 mcg/dL LAB CHEMISTRY METHOD 07/29/2025 7:38 PM EDT [facility] Blood Venous blood specimen / Unknown Venipuncture / Unknown 07/29/2025 3:43 PM EDT 07/29/2025 3:43 PM EDT Narrative [facility] - 07/29/2025 7:38 PM EDT CORTISOL REFERENCE RANGE 8 AM SPEC: 5.0-23.0 mcg/dL 4 PM SPEC: 3.0-16.0 mcg/dL 8 PM SPEC: <5.0 mcg/dL us Estuardo Najera MD LAB BLOOD ORDERABLES Final R esult [facility] [address] [place] [address], * (ABNORMAL) Comprehensive metabolic panel (07/29/2025 3:43 PM EDT) Pathologist [facility] Sodium 140 133 - 145 mmol/L LAB CHEMISTRY METHOD 07/29/2025 9:08 PM [facility] Potassium 4.2 3.5 - 5.5 mmol/L LAB CHEMISTRY METHOD 07/29/2025 9:08 PM [facility] Chloride 111(H) 96 - 110 mmol/L LAB CHEMISTRY METHOD 07/29/2025 9:08 PM T [facility] CO2 22 21 - 32 mmol/L LAB CHEMISTRY METHOD 07/29/2025 9:08 PM EDT [facility] Anion Gap 7 3 - 11 LAB CHEMISTRY METHOD 07/29/2025 9:08 PM [facility] Glucose 99 70 - 100 mg/dL LAB CHEMISTRY METHOD 07/29/2025 9:08 PM EDT [facility] BUN 13 5 - 25 mg/dL LAB CHEMISTRY METHOD 07/29/2025 9:08 PM [facility] Creatinine 0.68 0.50 - 1.10 mg/dL LAB CHEMISTRY METHOD 07/29/2025 9:08 PM [facility] eGFR 116 >=60 mL/min/1. 73m2 LAB CHEMISTRY METHOD 07/29/2025 9:08 PM [facility] Comment:Calculation based on the Chronic Kidney Disease Epidemiology Collaboration (CKD-EPI) equation refit without adjustment for race. BUN/Creatinine Ratio 19.1 LAB CHEMISTRY METHOD 07/29/2025 9:08 PM [facility] Calcium 9.7 8.5 - 10.5 mg/dL LAB CHEMISTRY METHOD 07/29/2025 9:08 PM [facility] AST (SGOT) 22 10 - 42 unit/L LAB CHEMISTRY METHOD 07/29/2025 9:08 PM [facility] ALT (SGPT) 33 10 - 60 unit/L LAB CHEMISTRY METHOD 07/29/2025 9:08 PM [facility] Alkaline Phosphatase 50 42 - 121 unit/L LAB CHEMISTRY METHOD 07/29/2025 9:08 PM [facility] Total Protein 6.3 6.0 - 8.0 g/dL LAB CHEMISTRY METHOD 07/29/2025 9:08 PM [facility] Albumin 3.5 3.2 - 5.0 g/dL LAB CHEMISTRY METHOD 07/29/2025 9:08 PM [facility] Total Bilirubin 0.4 0.0 - 1.4 mg/dL LAB CHEMISTRY METHOD 07/29/2025 9:08 PM [facility] Blood Venous blood specimen / Unknown Venipuncture / Unknown 07/29/2025 3:43 PM EDT 07/29/2025 3:43 PM EDT us Estuardo Najera MD LAB BLOOD ORDERABLES Final R esult [facility] [address] [place] [address], [place] [phone] * POC respiratory syncytial virus manually resulted (07/15/2025 1:47 PM EDT) [facility] RSV Rapid AG POC Negative Negative Swab Nasopharyngeal structure / Unknown 07/15/2025 1:47 PM EDT Brannon CRUZ POINT OF CARE TEST ENTER/E DIT ORDERABLES Final Result * POC rapid strep A manually resulted (07/15/2025 1:47 PM EDT) Only the most recent of2 resultswithin the time period is included. [facility] Rapid Strep A Screen POC Negative Negative Swab Structure of anterior region of neck / Unknown 07/15/2025 1:47 PM EDT Brannon CRUZ POINT OF CARE TEST ENTER/E DIT ORDERABLES Final Result * (ABNORMAL) Poc Rapid [id number], MOLECULAR (07/15/2025 1:46 PM EDT) Only the most recent of2 resultswithin the time period is included. [facility] COVID-19/SARS- COV-2 Rapid POC Positive(A ) Negative Swab Nasopharyngeal structure / Unknown 07/15/2025 1:46 PM EDT Brannon CRUZ POINT OF CARE TEST ENTER/E DIT ORDERABLES Final Result * HIV Screening (07/12/2015) [facility] HIV Screening abstracted Historical Provider HEALTH MAINTENANCE Final Result * Hepatitis C Screening (07/12/2015) [facility] Hepatitis C Screening abstracted Historical Provider HEALTH MAINTENANCE Final Result from Last 3 Months or Most Recently Relevant to Health Maintenance Insurance [facility] Care Teams Sap Pi Architect Relationship Specialty Start Date End Date Jesse Pa NP [address], [place] PCP - General 03/15/22
== END 2025-09-01 09:43 | disposition home or self-care (01) ==
LOC: HO.HMCC 09:03
PROVIDERS: PCP Nurse Practitioner Family; Visit Provider Nurse Practitioner Family
DX: E78.5 Hyperlipidemia, unspecified (principal); E66.01 Morbid (severe) obesity due to excess calories; Z68.41 Body mass index [BMI] 40.0-44.9, adult; J45.909 Unspecified asthma, uncomplicated; R06.02 Shortness of breath; Z23 Encounter for immunization

== ENCOUNTER → 2025-09-01 10:00 | Outpatient (BNV) | payer OTHER, SELFPAY | PROVIDERS: PCP Nurse Practitioner Family; Visit Provider Radiology Diagnostic Radiology | DX: R06.02 Shortness of breath (principal) | CPT/HCPCS: 71046 ==